=== PATIENT | female | born 1950 | race Caucasian/White ===

== ENCOUNTER 2017-02-12 16:24 | Inpatient (IN) ==
[2017-02-12] MEDS ORDERED: METHOCARBAMOL INJ 1,000 MG in SODIUM CHLORIDE 0.9% 100 ML IV STA (17:21)
[2017-02-12] MEDS ORDERED: KETOROLAC 30 MG/1 ML VIAL IV STA (17:21)
[2017-02-12] MEDS ORDERED: methylPREDNISolone SOD SUC 125 MG/2 ML VIAL IV STA (17:21)
--- NOTE | 2017-02-12 17:29 | Emergency Department Note ---
Arrival - Arrival Chief Complaint: Neuro Stated Complaint: sharp pain in head and arm/numb ED Nursing Triage Note: pain in head that radiates down into left arm and into hand. sent here from [facility] for further evaluation and neurology Mode of Arrival: Wheelchair Limitations: No Limitations Source: Patient Time Seen by Provider: 02/12/17 17:20 - History of Present Illness HPI Narrative: This 66-year-old white female presents approximately 12 hours after awakening with left-sided headache facial pain pain and tingling down the left arm as well as left scapula. She denies any significant pure chest pain, shortness of breath, diaphoresis, nausea, or vomiting. She likewise denies any slurred speech, visual changes, or focal deficits. She had a CT at [place] which was unremarkable as well as lab work there that was likewise unremarkable including cardiac enzymes. Currently she still complains of a mild headache, left facial pain and left upper extremity and left scapular pain. Of note the patient does have bilateral carpal tunnel syndrome and has significant loss of bander strength bilaterally left greater than right and has great difficulty holding onto anything. She has been advised the past to have surgery but she has refused to this point in time. She appears in no acute medical distress at this time. Onset (ago): hour(s) (Patient presents 12 hours post onset of symptoms) Allergies/Adverse Reactions: Allergies Allergy/AdvReac Type Severity Reaction Status Date / Time codeine AdvReac Nausea Verified 08/01/15 17:35 Home Medications: Home Medications Medication Instructions Recorded Confirmed Type Amlodipine Besylate 5 mg PO DAILY 08/01/15 04/05/16 History Aspirin [Ecotrin] 81 mg PO DAILY 08/01/15 04/05/16 History Diclofenac Sodium 75 mg PO BID 08/01/15 04/05/16 History Gabapentin [Gabapentin] 1 tablet PO BEDTIME 08/01/15 04/05/16 History Gemfibrozil [Lopid] 600 mg PO BIDAC 08/01/15 04/05/16 History Levetiracetam [Levetiracetam] 1,000 mg PO BID 08/01/15 04/05/16 History Potassium Chloride 20 meq PO DAILY 08/01/15 04/05/16 History clonazePAM [Clonazepam] 0.5 mg PO BID PRN 08/01/15 04/05/16 History metFORMIN [Glucophage] 500 mg PO BID W/MEALS 08/01/15 04/05/16 History Losartan/Hydrochlorothiazide 1 each PO DAILY 04/05/16 04/05/16 History [Losartan-Hctz 100-12.5 mg Tab] Review of System - Review of System 12 point system: reviewed and no additional remarkable complaints except as stated - Review of System Constitutional: Present: as per HPI Respiratory: Present: as per HPI Cardiovascular: Present: as per HPI Gastrointestinal: Present: as per HPI Neurological: Present: as per HPI Medical,Surgical,& Family Hx - Medical History Cardio: History of: Hypertension Psychological: History of: Anxiety Disorders Neurology: History of: Seizures Endocrine: History of: Diabetes Mellitus (NIDDM) Musculoskeletal: History of: Osteoporosis - Social History Smoking Status: Never smoker Exam Physical Examination: GENERAL: Well developed, well nourished elderly white female in no acute distress. HEENT: Normocephalic. No trauma. Moist mucous membranes. EOMI. PERRLA. ENT NML NECK: Supple. No adenopathy. CARDIAC: Regular. No murmurs. Heart rate 75 CHEST: Clear to auscultation. No respiratory distress. O2 sat 97 per ABDOMEN: Soft. Nontender. Active bowel sounds. EXTREMITIES: No trauma. Normal ROM. No pedal edema. SKIN: No diaphoresis. No rash. NEURO: Alert. Oriented 3. Motor, sensory, vibratory intact except for the upper extremities where there is bilateral bander weakness left greater than right secondary to bilateral carpal tunnel Vital Signs: Vital Signs Temperature 97.9 F 02/12/17 18:11 Pulse Rate 75 02/12/17 18:11 Respiratory Rate 18 02/12/17 18:11 Blood Pressure 127/79 02/12/17 18:11 O2 Sat by Pulse Oximetry 97 02/12/17 16:34 Course Course Narrative: Patient treated for cervical radiculopathy with full response and symptoms. - Consultations Consultation #1: Discussed with Dr. Anne who advised hospitalization for MRI in the morning given the spontaneity of the headache. Consultation #2: Discussed with hospitalist service who will admit for further evaluation treatment. Results - Diagnostic Findings Procedure: X-ray: image reviewed by me, report reviewed by me (Cervical spine reveals DJD but no abnormality of curvature or evidence of loss of joint spacing ) Disposition Clinical Impression: Headache, Bilateral carpal tunnel disease Case discussed with: patient, patient's family Disposition: Still a Patient Condition: Stable Time of Disposition: 18:26
[2017-02-12] MEDS ORDERED: KETOROLAC 30 MG/1 ML VIAL ONE (17:35)
[2017-02-12] MEDS ORDERED: METHOCARBAMOL 1,000 MG/10 ML VIAL ONE (17:35)
[2017-02-12] MEDS ORDERED: methylPREDNISolone SOD SUC 125 MG/2 ML VIAL ONE (17:35)
--- NOTE | 2017-02-12 17:55 | XRay Report ---
XR cervical spine AP/LAT Clinical Information: radiculopathy Comparison: Cervical spine CT dated 10/26/2015 and radiograph 01/04/2012 Findings: Vertebral body heights and alignment are within normal limits. Multilevel mild intervertebral disc space loss is noted. There is also multilevel facet arthropathy throughout the mid cervical levels. Moderate disc space loss is noted at C5-C6, which is progressed from the 2012 radiographs. Prevertebral soft tissues appear normal. There is no acute fracture or subluxation identified. No suspicious osseous or soft tissue lesions are identified. Impression: No acute fracture or subluxation in the Cervical spine. Multilevel moderate degenerative changes as detailed above. PROCEDURE INTERPRETED AT [facility] DEPARTMENT OF RADIOLOGY Final Report Signed by: Bola Smith
[2017-02-12] MEDS ORDERED: ONDANSETRON 4 MG/2 ML VIAL IV STA (18:20)
[2017-02-12] MEDS ORDERED: ONDANSETRON 4 MG/2 ML VIAL ONE (18:22)
--- NOTE | 2017-02-12 18:34 | EKG Report ---
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
[2017-02-12 18:52] LABS: Troponin I Only 0.018 NG/ML (0.00-0.045)
--- NOTE | 2017-02-12 19:07 | Hospitalist History & Physical ---
Assessment and Plan (1) Frontal headache Status: Acute Assessment and plan: The patient is moved the hospital with frontal headache associated with left arm radiculopathy symptoms. The patient states that she has had lacunar infarctions in the past. The patient will be admitted to the floor and we will obtain MRI scan in the morning. In the meantime will treat her symptoms with oral pain medication and treat blood pressure by restarting her home regimen. We will obtain neurology consultation in the morning as well as MRI scan and carotid Doppler study. Current Visit: Yes (2) Paresthesia of left arm Status: Acute Current Visit: Yes (3) Hypertension Status: Acute Current Visit: Yes (4) Diabetes type 2, controlled Status: Acute Current Visit: Yes Qualifiers: Diabetes mellitus complication status: with neurologic complications Diabetes mellitus complication detail: with other neurological complication Diabetes mellitus termite renewal inspector insulin use: without termite renewal inspector use Qualified Code( s): E11.49 - Type 2 diabetes mellitus with other diabetic neurological complication History of Present Illness Chief complaint: Frontal headache and left arm pain History of present illness: Ms. Keller is a 66 year old female patient of Dr. Abdulaziz Romero. The patient presents to the hospital with frontal headache which is bitemporal. Associated with the headache the patient has left neck tenderness and left arm numbness and tingling. The patient denies fever, chills, nausea, vomiting. The patient' s headache symptoms moderate, continuous, and worsening. The headache is worse when leaning over and improves with sleeping. The headache began about 2 weeks ago and has been intermittent until 2 days ago when it has been constant. The patient denies angina or palpitations. A complete 10 system review is obtained and all systems not mentioned in history of present illness were negative. The patient is her own medical decision maker and wishes to be full code. I discussed the case with Dr. Clemente in the emergency room and offered the patient admission for further evaluation. Home Medications Medication Instructions Recorded Confirmed Type Amlodipine Besylate 5 mg PO DAILY 08/01/15 04/05/16 History Aspirin [Ecotrin] 81 mg PO DAILY 08/01/15 04/05/16 History Diclofenac Sodium 75 mg PO BID 08/01/15 04/05/16 History Gabapentin [Gabapentin] 1 tablet PO BEDTIME 08/01/15 04/05/16 History Gemfibrozil [Lopid] 600 mg PO BIDAC 08/01/15 04/05/16 History Levetiracetam [Levetiracetam] 1,000 mg PO BID 08/01/15 04/05/16 History Potassium Chloride 20 meq PO DAILY 08/01/15 04/05/16 History clonazePAM [Clonazepam] 0.5 mg PO BID PRN 08/01/15 04/05/16 History metFORMIN [Glucophage] 500 mg PO BID W/MEALS 08/01/15 04/05/16 History Losartan/Hydrochlorothiazide 1 each PO DAILY 04/05/16 04/05/16 History [Losartan-Hctz 100-12.5 mg Tab] Allergies Allergy/AdvReac Type Severity Reaction Status Date / Time codeine AdvReac Nausea Verified 08/01/15 17:35 Medical,Surgical,& Family Hx - Medical History Cardio: History of: Hypertension Psychological: History of: Anxiety Disorders Neurology: History of: Seizures Endocrine: History of: Diabetes Mellitus (NIDDM) Musculoskeletal: History of: Osteoporosis - Family History Family History: Reports;: Family Hypertension - Social History Smoking Status: Never smoker Marital Status: Lives With:: Spouse Functional capacity: independent ambulation 12 point system: reviewed and no additional remarkable complaints except as stated Exam - Constitutional Vitals: Period Temp Pulse Resp BP Sys/Jiménez Pulse Ox Last 24 Hr 97.9 F-97.9 F 75-75 18-18 127-127/79-79 97 Exam: Constitutional System: Mild distress. No tremulousness. Head: Normocephalic, atraumatic. Ears, Nose and Throat System: No evidence of Otitis or Mastoiditis. No epistaxis or discharge Eyes System: Pupils equal, round, and reactive. Extraocular muscles intact. Neck: Supple, without adenopathy, No jugular venous distention. No thyromegaly , neck mass, or prior surgery apparent. Respiratory System: Chest clear to auscultation. Cardiovascular System: Heart with regular rate and rhythm. No murmur. GI System: Abdomen soft, nontender. Normo active bowel sounds present. Musculoskeletal System: limbs with no pedal edema. Full distal pulses. Neurological System: No discernable sensory deficit. No aphasia Psychiatric System: Conversation is rational Capillary Refill: less than 2 sec Results - Labs Lab Results: I have reviewed the past 24 hour labs Quality Measures - Stroke Onset of Symptoms Date: 02/09/17 Symptom Onset Unknown: No
[2017-02-12] MEDS ORDERED: ZALEPLON 5 MG CAPSULE PO PRN (19:33)
[2017-02-12] MEDS ORDERED: MORPHINE 2 MG/1 ML SYRINGE IV PRN (19:33)
[2017-02-12] MEDS ORDERED: clonazePAM 0.5 MG TABLET PO PRN (19:33)
[2017-02-12] MEDS ORDERED: DEXTROSE 50% 25 GM/50 ML VIAL IV PRN (19:33)
[2017-02-12] MEDS ORDERED: ACETAMINOPHEN 325 MG TABLET PO PRN (19:33)
[2017-02-12] MEDS ORDERED: GLUCAGON 1 MG VIAL IM PRN (19:33)
[2017-02-12] MEDS ORDERED: guaiFENesin/DM ER 600-30 MG TABLET PO PRN (19:33)
[2017-02-12] MEDS: SODIUM CHLORIDE 0.9% 1,000 ML IV SCH (22:08)
[2017-02-12] MEDS: ENOXAPARIN 40 MG/0.4 ML SYRINGE SUBCUT SCH (22:13)
[2017-02-12] MEDS: GABAPENTIN 100 MG CAPSULE PO SCH (22:14)
[2017-02-12] MEDS: levETIRAcetam 500 MG TABLET PO SCH (22:15)
[2017-02-12] MEDS: INSULIN LISPRO 100 UNIT/ML SUBCUT SCH (22:27)
[2017-02-13] MEDS: ONDANSETRON 4 MG/2 ML VIAL IV PRN ×4 (00:18→20:54)
[2017-02-13 05:27] LABS: Hematocrit 33.4 VOL% (35.7-47.0); Immature Granulocytes % 0.7 %; Immature Granulocytes Absolute 0.04 #; Lymphocytes # 0.8 10*3/uL (1.4-4.0); Lymphocytes % 14.5 % (21.3-54.2); Mean Corpuscular HGB Conc 32.9 GM/DL (32-36); Mean Corpuscular Hemoglobin 28 PG (27-34); Mean Corpuscular Volume 83.5 FL (87-102); Mean Platelet Volume 12.4 FL (9.6-12.0); Monocytes # 0.1 10*3/uL (0.11-0.8); Neutrophils # 4.6 10*3/uL (1.4-7.4); Neutrophils % 82.8 % (38.7-73.9); Platelet Count 145 T/CUMM (130-400); Red Cell Distribution Width 12.7 % (9.3-17.3); White Blood Count 5.6 T/CUMM (4-12)
[2017-02-13 06:05] LABS: Calcium 8.8 MG/DL (8.5-10.1); Magnesium 2.1 MG/DL (1.8-2.4); Osmolality,Calculated 291.7 MOS/KG (273-304); Potassium 4.1 MMOL/L (3.5-5.1); Troponin I Only 0.021 NG/ML (0.00-0.045)
--- NOTE | 2017-02-13 08:14 | Ultrasound Report ---
Exam: US carotid duplex BI Date: 02/13/2017 7:00 AM Indication: Headache Findings: Grayscale color flow analysis and spectral analysis imaging was performed with image stored and captured. Right Side Flow velocities centimeters per second Common carotid artery: 66 Proximal ICA: 57.2 Distal ICA: 66.3 External carotid artery: 82.0 Vertebral artery: 45.5 ICA/CCA ratio: 1 Measurements in millimeters Distal ICA: 5.4 Left SIde Flow velocities centimeters per second Common carotid artery: 69 Proximal ICA: 84.6 Distal ICA: 84.6 External carotid artery: 85.9 Vertebral artery: 59.8 ICA/CCA ratio: 1.2 Measurements in millimeters Distal ICA: 5.7 Atherosclerotic plaque present no spectral broadening clearly demonstrated. Normal color flow Impression: 1. 16-49% stenosis bilaterally. Findings similar to previous exam. Today studies were performed utilizing indirect NASCET criteria The ultrasound images were stored and captured PROCEDURE INTERPRETED AT [facility] DEPARTMENT OF RADIOLOGY Final Report Signed by: Dr. Vlad George
[2017-02-13] MEDS: INSULIN LISPRO 100 UNIT/ML SUBCUT SCH ×4 (08:16→23:49)
[2017-02-13] MEDS: ASPIRIN EC 81 MG TABLET PO SCH (08:22)
[2017-02-13] MEDS: LOSARTAN 50 MG TABLET PO SCH (08:22)
[2017-02-13] MEDS: PANTOPRAZOLE 40 MG TABLET PO SCH (08:23)
[2017-02-13] MEDS: hydroCHLOROthiazide 12.5 MG CAPSULE PO SCH (08:23)
[2017-02-13] MEDS: amLODIPine 5 MG TABLET PO SCH (08:26)
[2017-02-13] MEDS: levETIRAcetam 500 MG TABLET PO SCH ×2 (08:27→20:55)
[2017-02-13] MEDS: POTASSIUM CHLORIDE 20 MEQ TABLET PO SCH (08:29)
--- NOTE | 2017-02-13 11:33 | Neurology Consult Note ---
History of Present Illness History of present illness: Ms. Keller is a 66 year old right-handed white lady with past medical history significant for diabetes, hypertension presented to the hospital the patient with frontal headache which is bitemporal. Associated with the headache the patient has left neck tenderness and left arm numbness and tingling. The patient denies fever, chills, nausea, vomiting. The patient's headache symptoms moderate, continuous, and worsening. The headache is worse when leaning over and improves with sleeping. The headache began about 2 weeks ago and has been intermittent until 2 days ago when it has been constant. The patient denies angina or palpitations. CT of the head is unremarkable. Patient denies any focal weakness. She is able to get up and walk. No difficulty with swallowing or speech. No difficulty with vision either. Home Medications Medication Instructions Recorded Confirmed Type Amlodipine Besylate 5 mg PO QAM 08/01/15 02/12/17 History Gemfibrozil [Lopid] 600 mg PO BIDAC 08/01/15 02/13/17 History Levetiracetam [Levetiracetam] 1,000 mg PO BID 08/01/15 02/13/17 History Potassium Chloride 20 meq PO QAM 08/01/15 02/13/17 History metFORMIN [Glucophage] 500 mg PO BID W/MEALS 08/01/15 02/13/17 History Losartan/Hydrochlorothiazide 1 each PO QAM 04/05/16 02/13/17 History [Losartan-Hctz 100-12.5 mg Tab] Aspirin Chew Tab 81 mg PO QAM 02/12/17 02/12/17 History Gabapentin [Gabapentin] 300 mg PO BID 02/12/17 02/13/17 History clonazePAM [Clonazepam] 1 mg PO BID 02/12/17 02/13/17 History glipiZIDE [Glipizide] 5 mg PO BIDAC 02/12/17 02/13/17 History Allergies Allergy/AdvReac Type Severity Reaction Status Date / Time codeine AdvReac Nausea Verified 08/01/15 17:35 12 point system: reviewed and no additional remarkable complaints except as stated Medical,Surgical,& Family Hx - Medical History Cardio: History of: Hypertension Psychological: History of: Anxiety Disorders Neurology: History of: Seizures Endocrine: History of: Diabetes Mellitus (NIDDM) Musculoskeletal: History of: Osteoporosis - Family History Family History: Reports;: Family Cancer (father, mother), Family Diabetes ( mother, father), Family Heart Disease (father), Family Hypertension - Social History Smoking Status: Never smoker Frequency of Alcohol Use: None Type of Drug Use: None Exam - Constitutional Vitals: Period Temp Pulse Resp BP Sys/Jiménez Pulse Ox Last 24 Hr 96.0 F-97.9 F 58-75 16-20 111-142/64-82 91-98 Exam: GENERAL: Patient is in no acute distress. NECK: Neck is supple. There is no JVD. No carotid bruits present. No thyroid masses. CVS: First and second heart sounds are normal. There is no S3 present. Regular rate and rhythm. RESPIRATORY: Lungs are clear to auscultation without any rales or rhonchi. ABDOMEN: Soft and non-tender. Bowel sounds are present. There is no hepatosplenomegaly. EXT: There is no palpable edema. Peripheral pulses are present. Skin: No rashes Central Nervous system: General: Alert, awake and Oriented x 3 Speech: Fluent Comprehension: Intact and normal Facial expressions: Normal Cranial Nerves: CN1/Olfactory: Normal CN II/ Optic: Normal, Visual Mims unreliable CN III, and : JODIE & EOMI CN V: Normal & intact CN VII: face is symmetric CNVIII: Normal CN XI/X/XI/XII: Intact and Normal Motor: Bulk and Tone is normal. Strength in the right 5/5 Strength in the left 5/5 Sensory: Grossly intact for all the modalities of PP, LT and temp sense Reflexes: 1+ and symmetrical Cerebellar function: Normal finger to nose and heel to hodgson testing. Toes: Equivocal Gait: Normal heel to heel and toe to toe and tandem walk. Results - Labs CBC & BMP: 02/13/17 04:07 02/13/17 04:07 Assessment and Plan (1) Frontal headache Status: Acute Assessment and plan: Try Fioricet 1 tablet every 4 to every 6 as needed. This could very well be migraine type issue Current Visit: Yes (2) Paresthesia of left arm Status: Acute Assessment and plan: Rule out stroke. Agree with MRI of the brain. Start and continue aspirin a day Thank you for the consult Current Visit: Yes
--- NOTE | 2017-02-13 12:45 | Hospitalist Progress Note ---
Assessment and Plan (1) Frontal headache Status: Acute Assessment and plan: 1)headache- Dr Anne has ordered Fioricet. 2)left arm numbness- MRI brain pending. no injury to neck or history of pain or arthritis there. PT adn OT to see. Check carotids US, echo. On asa at home, continued here and her other meds also reconciled including Klonipin. Neurontin held for now. 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 Dr Anne has saw her later and MRI brain is pending. Exam - Constitutional Vitals: Period Temp Pulse Resp BP Sys/Jiménez Pulse Ox Last 24 Hr 96.0 F-97.9 F 58-75 16-20 111-142/64-82 91-98 General appearance: normal weight, no acute distress - Eye Eye exam: Present: EOMI. 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 She has equal strength in her legs but is weak and unstable to walk, her balance has been affected. ), reflexes normal - Skin Skin exam: Present: warm, dry Results - Labs CBC & BMP: 02/13/17 04:07 02/13/17 04:07 Lab Results: I have reviewed the past 24 hour labs Quality Measures - Stroke Onset of Symptoms Date: 02/09/17 Symptom Onset Unknown: No
[2017-02-13] MEDS: SODIUM CHLORIDE 0.9% 1,000 ML IV SCH (13:28)
--- NOTE | 2017-02-13 13:38 | Magnetic Resonance Report ---
Exam: MRI brain without and with contrast Exam date: February 13, 2017 at 1245 hours Indication: Frontal headaches with left arm numbness Comparison: August 27, 2011 Technique: Multiplanar, multisequence magnetic resonance imaging of the brain prior to and after 12 mL gadolinium-based intravenous contrast was performed in routine fashion. Axial, coronal and sagittal images submitted for interpretation Findings: Parenchyma: No mass or midline shift. No intra or extra-axial. Mild generalized atrophy with punctate microangiopathic small vessel ischemic changes.. No abnormal enhancement Ventricles and sulci: Normal in size and configuration Posterior fossa: Cerebellum, brainstem and cervicomedullary junction are preserved Orbits and sinuses: Globes and orbits are intact. Periorbital and pericavernous spaces are normal. No paranasal sinus inflammatory changes. Sella: Pituitary is normal. Osseous: No abnormality of the skull base or calvarium is identified Impression: 1. Mild atrophy with minimal microangiopathic small vessel ischemic changes, likely age-appropriate. No acute intracranial abnormality PROCEDURE INTERPRETED AT [facility] DEPARTMENT OF RADIOLOGY Final Report Signed by: Jose Antonio Alexis
--- NOTE | 2017-02-13 15:54 | ECHO Report ---
Purnima Keller Exam Date: 02/13/2017 13:45 Referring Physician: Technologist: kameron Rhodes ARDMS, RVT Age: 66 Ht (in): 68 Wt (lb): 166 Gender: F Exam Location: [facility] Echo Indications: Essential (primary) hypertension, Frontal headache, Paresthesias left arm, DM BP: 142 / 72 HR: 62 Rhythm: Sinus Technical Quality: Good IMPRESSIONS No mass or thrombus is seen with TTE Mild left ventricular hypertrophy, moderate increased upper septal thickness. Left ventricular ejection fraction is estimated at 65 %. Moderate apical LAE. Trace mitral valve regurgitation. Aortic valve sclerosis, there is no aortic regurgitation. Trace to mild tricuspid valve regurgitation. Tricuspid regurgitation velocities suggest a PAP of 37 mmHg. MEASUREMENTS (Male / Female) Normal Values 2D ECHO LV Diastolic Diameter PLAX 3.0 cm 4.2 - 5.9 / 3.9 - 5.3 cm LV Systolic Diameter PLAX 2.0 cm LV Fractional Shortening PLAX 32.3 % IVS Diastolic Thickness 1.3 cm 0.6 - 1.0 / 0.6 - 0.9 cm LVPW Diastolic Thickness 1.4 cm 0.6 - 1.0 / 0.6 - 0.9 cm RV Internal Dim ED PLAX 3.4 cm Aortic Root Diameter 3.4 cm LA Systolic Diameter LX 3.6 cm 3.0 - 4.0 / 2.7 - 3.8 cm DOPPLER TR Peak Velocity 262.0 cm/s TR Peak Gradient 27.5 mmHg FINDINGS Left Ventricle Normal left ventricular cavity size. Mild left ventricular hypertrophy, moderate increased upper septal thickness. Left ventricular ejection fraction is estimated at 65 %. Right Ventricle The right ventricle is normal in size and function. Right Atrium The right atrium is normal in size. Left Atrium Moderate apical LAE Mitral Valve Morphologically normal mitral valve. Trace mitral valve regurgitation. Aortic Valve Aortic valve sclerosis, there is no aortic regurgitation. Tricuspid Valve Morphologically normal tricuspid valve. Trace to mild tricuspid valve regurgitation. Tricuspid regurgitation velocities suggest a PAP of 37 mmHg. Pulmonic Valve Morphologically normal pulmonic valve without significant stenosis. There is no pulmonic regurgitation. Pericardium Normal pericardium without effusion. Aorta Normal ascending aorta dimension. Roman Shabazz MD (Electronically Signed) Final Date: 13 February 2017 15:54
[2017-02-13] MEDS: glipiZIDE 5 MG TABLET PO SCH (17:19)
[2017-02-13] MEDS ORDERED: MAGNESIUM HYDROXIDE SUSP 30 ML UDCUP PO ONE (18:05)
[2017-02-13] MEDS: DOCUSATE SODIUM 100 MG CAPSULE PO SCH (20:54)
[2017-02-13] MEDS: clonazePAM 0.5 MG TABLET PO SCH (20:55)
[2017-02-13] MEDS: ENOXAPARIN 40 MG/0.4 ML SYRINGE SUBCUT SCH (20:56)
[2017-02-13] MEDS: GABAPENTIN 100 MG CAPSULE PO SCH (20:56)
[2017-02-14] MEDS: SODIUM CHLORIDE 0.9% 1,000 ML IV SCH ×4 (01:24→21:01)
[2017-02-14] MEDS: ONDANSETRON 4 MG/2 ML VIAL IV PRN ×3 (03:31→20:44)
[2017-02-14] MEDS: INSULIN LISPRO 100 UNIT/ML SUBCUT SCH ×4 (07:57→22:24)
[2017-02-14] MEDS: LOSARTAN 50 MG TABLET PO SCH (09:32)
[2017-02-14] MEDS: clonazePAM 0.5 MG TABLET PO SCH ×2 (09:33→20:45)
[2017-02-14] MEDS: ASPIRIN EC 81 MG TABLET PO SCH (09:33)
[2017-02-14] MEDS: amLODIPine 5 MG TABLET PO SCH (09:33)
[2017-02-14] MEDS: PANTOPRAZOLE 40 MG TABLET PO SCH (09:34)
[2017-02-14] MEDS: levETIRAcetam 500 MG TABLET PO SCH ×2 (09:35→20:46)
[2017-02-14] MEDS: hydroCHLOROthiazide 12.5 MG CAPSULE PO SCH (09:35)
[2017-02-14] MEDS: glipiZIDE 5 MG TABLET PO SCH ×2 (09:35→17:39)
[2017-02-14] MEDS: DOCUSATE SODIUM 100 MG CAPSULE PO SCH ×2 (09:36→20:45)
[2017-02-14] MEDS: POTASSIUM CHLORIDE 20 MEQ TABLET PO SCH (09:37)
[2017-02-14] MEDS ORDERED: LACTULOSE 20 GM/30 ML UDCUP PO PRN (12:01)
[2017-02-14] MEDS ORDERED: BUTALBITAL/ACETAMIN/CAFFEINE 50-325-40 MG TABLET PO PRN (12:01)
--- NOTE | 2017-02-14 12:03 | Hospitalist Progress Note ---
Assessment and Plan - Time spent with patient Time spent with patient: Less than 30 minutes (1) Frontal headache Status: Acute Assessment and plan: 66-year-old white female with history of diabetes and hypertension admitted by the hospitalist service on 02/12/2017 with bitemporal frontal headache with left neck tenderness and left arm numbness and tingling. Brain MRI, carotid Dopplers , and echocardiogram are all normal. Dr. Anne has seen and examined patient and feels this is migraines and has recommended Fioricet which was started today. Patient is also complaining of constipation. She has used Colace and milk of magnesia with no benefits. Will add Chronulac every 4 hours as needed. She is nontender and nondistended. Patient's hemoglobin A1c was mildly elevated at 7.9. She is on metformin and glyburide at home. Will consult diabetes educators for diet recommendations. Patient also has weakness upon standing and requesting [facility] rehab. Physical therapy consult has been ordered but is pending at this time. Dr. Renner will see and examine patient and further recommendations to follow. Current Visit: Yes (2) Paresthesia of left arm Status: Acute Current Visit: Yes (3) Hypertension Status: Acute Current Visit: Yes (4) Diabetes type 2, controlled Status: Acute Current Visit: Yes Qualifiers: Diabetes mellitus complication status: with neurologic complications Diabetes mellitus complication detail: with other neurological complication Diabetes mellitus buttermaker insulin use: without buttermaker use Qualified Code( s): E11.49 - Type 2 diabetes mellitus with other diabetic neurological complication Hospitalist: Subjective Interval history: Patient feels a little better but she still continues to have headache and now complaining of constipation. She is requesting to go to [facility] rehab Exam - Constitutional Vitals: Period Temp Pulse Resp BP Sys/Jiménez Pulse Ox Last 24 Hr 97.1 F-98.5 F 57-69 18-20 114-126/56-67 93-99 Exam: 66-year-old white female, no acute distress, alert and oriented Chest clear CV regular rate and rhythm Abdomen obese, nontender Extremities no edema Results - Labs CBC & BMP: 02/13/17 04:07 02/13/17 04:07 Lab Results: I have reviewed the past 24 hour labs - Diagnostic Findings Procedure: MRI: report reviewed by me (MRI of the brain shows mild atrophy with minimal microangiopathic small vessel ischemic changes that are age- appropriate. No acute intracranial abnormality.), Ultrasound: report reviewed by me (Carotid Doppler showed 16-49% stenosis bilaterally which is the same as previous exam. Echocardiogram shows mild left ventricular hypertrophy with EF of 65%.) Quality Measures - Stroke Onset of Symptoms Date: 02/09/17 Symptom Onset Unknown: No
[2017-02-14] MEDS: BUTALBITAL/ACETAMIN/CAFFEINE 50-325-40 MG TABLET PO PRN ×3 (12:20→22:50)
--- NOTE | 2017-02-14 13:20 | Neurology Progress Note ---
Neurology - PN : Subjective Interval history: Patient seems to be doing better. Still having difficulty in walking however was able to get up and walk with me with supervision to min assist. I cannot exclude the possibility of some anxiety/psychological element. There is no clear explanation of why she cannot walk. MRI of the brain is negative. Exam (Progress Note) - Constitutional Vitals: Period Temp Pulse Resp BP Sys/Jiménez Pulse Ox Last 24 Hr 97.1 F-98.5 F 57-69 18-20 114-126/56-67 93-99 Exam: GENERAL: Patient is in no acute distress. NECK: Neck is supple. There is no JVD. No carotid bruits present. No thyroid masses. CVS: First and second heart sounds are normal. There is no S3 present. Regular rate and rhythm. RESPIRATORY: Lungs are clear to auscultation without any rales or rhonchi. ABDOMEN: Soft and non-tender. Bowel sounds are present. There is no hepatosplenomegaly. EXT: There is no palpable edema. Peripheral pulses are present. Skin: No rashes Central Nervous system: General: Alert, awake and Oriented x 3 Speech: Fluent Comprehension: Intact and normal Facial expressions: Normal Cranial Nerves: CN1/Olfactory: Normal CN II/ Optic: Normal, Visual Mims unreliable CN III, and : JODIE & EOMI CN V: Normal & intact CN VII: face is symmetric CNVIII: Normal CN XI/X/XI/XII: Intact and Normal Motor: Bulk and Tone is normal. Strength in the right 5/5 Strength in the left 5/5 Sensory: Grossly intact for all the modalities of PP, LT and temp sense Reflexes: 1+ and symmetrical Cerebellar function: Normal finger to nose and heel to hodgson testing. Toes: Equivocal Gait: Able to get up and walk with min assist Results - Labs CBC & BMP: 02/13/17 04:07 02/13/17 04:07 Assessment and Plan (1) Frontal headache Status: Acute Assessment and plan: This has resolved Current Visit: Yes (2) Paresthesia of left arm Status: Acute Assessment and plan: Continue aspirin a day Okay to go home from neuro standpoint with home health/outpatient therapy Thank you for the consult Current Visit: Yes Quality Measures - Stroke Onset of Symptoms Date: 02/09/17 Symptom Onset Unknown: No
[2017-02-14] MEDS ORDERED: SODIUM CHLORIDE 0.9% 500 ML IV ONE (13:23)
[2017-02-14] MEDS: ENOXAPARIN 40 MG/0.4 ML SYRINGE SUBCUT SCH (20:44)
[2017-02-14] MEDS: GABAPENTIN 100 MG CAPSULE PO SCH (20:45)
[2017-02-15] MEDS: BUTALBITAL/ACETAMIN/CAFFEINE 50-325-40 MG TABLET PO PRN ×2 (03:44→08:37)
[2017-02-15] MEDS: ONDANSETRON 4 MG/2 ML VIAL IV PRN ×2 (03:47→12:07)
[2017-02-15 04:39] LABS: Calcium 7.9 MG/DL (8.5-10.1); Magnesium 2.4 MG/DL (1.8-2.4); Osmolality,Calculated 282.7 MOS/KG (273-304); Potassium 4.2 MMOL/L (3.5-5.1)
[2017-02-15] MEDS: SODIUM CHLORIDE 0.9% 1,000 ML IV SCH ×2 (05:10→15:01)
[2017-02-15] MEDS: hydroCHLOROthiazide 12.5 MG CAPSULE PO SCH (08:35)
[2017-02-15] MEDS: levETIRAcetam 500 MG TABLET PO SCH (08:35)
[2017-02-15] MEDS: ASPIRIN EC 81 MG TABLET PO SCH (08:36)
[2017-02-15] MEDS: DOCUSATE SODIUM 100 MG CAPSULE PO SCH (08:36)
[2017-02-15] MEDS: glipiZIDE 5 MG TABLET PO SCH (08:36)
[2017-02-15] MEDS: amLODIPine 5 MG TABLET PO SCH (08:38)
[2017-02-15] MEDS: PANTOPRAZOLE 40 MG TABLET PO SCH (08:38)
[2017-02-15] MEDS: clonazePAM 0.5 MG TABLET PO SCH (08:38)
[2017-02-15] MEDS: POTASSIUM CHLORIDE 20 MEQ TABLET PO SCH (08:39)
[2017-02-15] MEDS: LOSARTAN 50 MG TABLET PO SCH (08:39)
[2017-02-15] MEDS: INSULIN LISPRO 100 UNIT/ML SUBCUT SCH ×2 (08:40→11:38)
[2017-02-15] MEDS ORDERED: SUMAtriptan 6 MG/0.5 ML VIAL SUBCUT ONE (10:23)
--- NOTE | 2017-02-15 10:23 | Discharge Summary ---
<Colleen Young - Last Filed: 02/15/17 10:35> Hospital Course - Hospital Course Hospital Course: 66-year-old white female with history of hypertension, diabetes, depression and anxiety admitted by the hospitalist service on 02/12/2017 per neurology's request with frontal headache and paresthesias of her left arm. Patient's echo, carotid Dopplers, and brain MRI were all normal. Dr. Anne from neurology did see the patient and he felt this was more migraines and ordered Fioricet. Patient did have a headache this morning and Fioricet was ordered and this did help. Patient is having some weakness with ambulation and she will not qualify for swing bed or rehab placement. She will be discharged home with home health physical therapy and a prescription for Fioricet. Complete discharge instructions were given. Care coordination, chart review, completed discharge paperwork took approximately 33 minutes. I evaluated this patient and completed an independent history and physical examination. I coordinated care with KAILEE White,[place]. I agree with the documentation that she provides above. Patient's home medications were reviewed and reconciled. She is a full code. - Time spent with patient Time with patient DS: Greater than 30 minutes Diagnosis - Discharge Diagnosis (1) Frontal headache Status: Resolved (2) Paresthesia of left arm Status: Resolved (3) Hypertension Status: Chronic (4) Diabetes type 2, controlled Status: Chronic Specialty Discharge - Follow Up or Referrals Follow up with: Abdulaziz Romero MD [Physician] - 2 Weeks (We will call you with appointment time. ) Discharge Plan - Discharge Data Disposition: Home Health Service - Discharge Medications New Butalbital/Acet/Caff 50-325-40 [Fioricet 50-325-40 mg Tablet] 1 tablet PO Q4H PRN #30 tablet PRN Reason: Migraine Headache Continue Gemfibrozil [Lopid] 600 mg PO BIDAC metFORMIN [Glucophage] 500 mg PO BID W/MEALS Levetiracetam 1,000 mg PO BID Potassium Chloride 20 meq PO QAM Amlodipine Besylate 5 mg PO QAM Losartan/Hydrochlorothiazide [Losartan-Hctz 100-12.5 mg Tab] 1 each PO QAM clonazePAM [Clonazepam] 1 mg PO BID Aspirin Chew Tab 81 mg PO QAM glipiZIDE [Glipizide] 5 mg PO BIDAC Gabapentin 300 mg PO BID - Follow Up or Referral Follow Up: Abdulaziz Romero MD [Physician] - 2 Weeks (We will call you with appointment time. ) - Forms/Instructions Instructions: Migraine Headache (DC) Exam - Constitutional Vitals: Period Temp Pulse Resp BP Sys/Jiménez Pulse Ox Last 24 Hr 97.4 F-98.7 F 54-73 18-20 122-155/62-69 96-98 Exam: 66-year-old white female, no acute distress, alert and oriented Chest clear CV regular rate and rhythm Abdomen soft nontender Extremities no edema Discharge Results Labs on day of discharge: Labs from last 24 hours 02/15/17 02/15/17 02/14/17 07:16 02:22 22:01 Sodium 138 Potassium 4.2 Chloride 104 Carbon Dioxide 27 Anion Gap 11.2 BUN 16 Creatinine 0.80 GFR Calculation 84 BUN/Creatinine Ratio 20.00 Glucose 232 H POC Glucose 158 H 162 H Calculated Osmolality 282.7 Calcium 7.9 L Magnesium 2.4 02/14/17 02/14/17 15:56 11:30 Sodium Potassium Chloride Carbon Dioxide Anion Gap BUN Creatinine GFR Calculation BUN/Creatinine Ratio Glucose POC Glucose 136 H 192 H Calculated Osmolality Calcium Magnesium DS: Provider Date of admission: 02/12/17 18:26 Primary care physician: . No PCP Attending physician on admission: Eliot Mcmullen MD Consults: 02/12/17 19:33 Consult to Physician [CONS] Routine Comment: headache, left arm numbness Consulting Provider: Sixto Anne Person Notified: Sandra Date Notified: 02/13/17 Time Notified: 08:45 02/12/17 21:08 Consult to Dietitian [CONS] Routine Reason for Dietitian: Dietary Consult 02/13/17 12:48 Consult to Occupational Therapy [CONS] Routine Reason for Occupational Therapy: Evaluate and Treat 02/13/17 12:49 Consult to Physical Therapy [CONS] Routine Reason for Physical Therapy: Evaluate and Treat 02/13/17 12:51 Consult to Case Mgmt/Social Srvs [CONS] Routine Reason for Case Mgmt/Social Srvs: Discharge Planning Consult Comment: wants to go to [facility] 02/14/17 12:02 Consult to [facility], Educator [CONS] Routine Reason for Educational Aid: Diabetes Education Discharging clinician: SHELLIE Mejia <Nir Renner - Last Filed: 02/15/17 13:37> Diagnosis - Discharge Diagnosis (1) Migraine Status: Acute (2) Frontal headache Status: Resolved (3) Paresthesia of left arm Status: Resolved (4) Hypertension Status: Chronic (5) Diabetes type 2, controlled Status: Chronic Discharge Plan - Discharge Data Condition at Discharge: Stable Discharge Diet: advance to your usual diet Activity: resume usual activities as tolerated, as per physical therapy Hygiene: no restrictions Weight Bearing at Discharge: full weight bearing Contact your physician if you experience:: fever over 101, Difficulty voiding, Shortness of breath DS: Provider Expected date of discharge: 02/15/17
[2017-02-15 15:02] VITALS: BP 144/75
== END 2017-02-15 15:20 | disposition home health service (06) | DRG 103 ==
LOC: N.ED 16:24 → SUATTDRO 18:26 → N.EDINP 18:26 → N.4E 19:51
PROVIDERS: ADMIT Family Medicine; ATTEND Family Medicine

== ENCOUNTER 2018-05-16 10:27 | Inpatient (IN) ==
[2018-05-16 12:37] LABS: Basophils % 0.1 % (0.0-0.8); Hematocrit 36.3 VOL% (35.7-47.0); Hemoglobin 11.5 GM/DL (12.0-16.0); Immature Granulocytes % 0.7 %; Lymphocytes # 1.2 10*3/uL (1.4-4.0); Lymphocytes % 8.4 % (21.3-54.2); Mean Corpuscular HGB Conc 31.7 GM/DL (32-36); Mean Corpuscular Hemoglobin 26 PG (27-34); Mean Corpuscular Volume 83.4 FL (87-102); Mean Platelet Volume 11.2 FL (9.6-12.0); Monocytes # 0.7 10*3/uL (0.11-0.8); Monocytes % 4.9 % (1.7-12.7); Neutrophils # 11.9 10*3/uL (1.4-7.4); Neutrophils % 85.9 % (38.7-73.9); Platelet Count 167 T/CUMM (130-400); Red Blood Count 4.35 MC/CUMM (3.8-5.5); Red Cell Distribution Width 13.4 % (9.3-17.3); White Blood Count 13.9 T/CUMM (4-12)
[2018-05-16 12:59] LABS: Albumin 3.2 G/DL (3.4-5.0); Bilirubin,Total 1.2 MG/DL (0.2-1.0); Osmolality,Calculated 273.1 MOS/KG (273-304); Potassium 3.6 MMOL/L (3.5-5.1); Total Protein 8.6 G/DL (6.4-8.3)
[2018-05-16 13:12] LABS: Apearance,Urine CLOUDY (Clear); Bacteria,Urine Occasional /HPF (Few); Bilirubin,Urine Negative (Negative); Blood, Urine Negative (Negative); Glucose,Urine (UA) Negative (Negative); Ketones,Urine Negative (Negative); Mucus,Urine Occasional /LPF (Occasional); Nitrite,Urine Negative (Negative); Protein,Urine 100 MG/DL; RBC,Urine 6 /HPF (0-4); Squamous Epithelial Cell,Urine Few /HPF (0-10); Urine Color Amber (Yellow); Urine Specific Gravity 1.024 (1.001-1.035); WBC,Urine 29 /HPF (0-6)
[2018-05-16] MEDS ORDERED: SODIUM CHLORIDE 0.9% 1,000 ML IV STA (13:37)
[2018-05-16] MEDS ORDERED: PIPERACILLIN/TAZOBACTAM 3,375 MG in SODIUM CHLORIDE 0.9% 100 ML IV STA (13:37)
[2018-05-16] MEDS ORDERED: MORPHINE 4 MG/1 ML VIAL IV STA (13:46)
[2018-05-16] MEDS ORDERED: ONDANSETRON 4 MG/2 ML VIAL IV STA (13:46)
[2018-05-16] MEDS ORDERED: MORPHINE 4 MG/1 ML VIAL ONE (13:51)
[2018-05-16] MEDS ORDERED: ONDANSETRON 4 MG/2 ML VIAL ONE (13:51)
[2018-05-16] MEDS ORDERED: PROMETHAZINE 25 MG/1 ML VIAL IM PRN (14:58)
[2018-05-16] MEDS ORDERED: ACETAMINOPHEN 325 MG TABLET PO PRN (14:58)
[2018-05-16] MEDS: PANTOPRAZOLE 40 MG VIAL IV SCH (15:54)
[2018-05-16] MEDS: HYDROmorphone 2 MG/1 ML VIAL IV PRN ×2 (16:00→21:38)
[2018-05-16] MEDS ORDERED: ENOXAPARIN 40 MG/0.4 ML SYRINGE SUBCUT SCH (21:00)
[2018-05-16] MEDS: ONDANSETRON 4 MG/2 ML VIAL IV PRN (23:02)
[2018-05-17 05:09] LABS: Basophils % 0.1 % (0.0-0.8); Hematocrit 31.3 VOL% (35.7-47.0); Immature Granulocytes % 0.5 %; Immature Granulocytes Absolute 0.05 #; Lymphocytes # 0.4 10*3/uL (1.4-4.0); Lymphocytes % 3.6 % (21.3-54.2); Mean Corpuscular HGB Conc 31.9 GM/DL (32-36); Mean Corpuscular Hemoglobin 27 PG (27-34); Mean Corpuscular Volume 82.8 FL (87-102); Mean Platelet Volume 11.8 FL (9.6-12.0); Monocytes % 10.6 % (1.7-12.7); Neutrophils # 8.3 10*3/uL (1.4-7.4); Neutrophils % 85.2 % (38.7-73.9); Platelet Count 119 T/CUMM (130-400); Red Blood Count 3.78 MC/CUMM (3.8-5.5); Red Cell Distribution Width 13.9 % (9.3-17.3); White Blood Count 9.8 T/CUMM (4-12)
[2018-05-17] MEDS: HYDROmorphone 2 MG/1 ML VIAL IV PRN ×2 (05:35→20:23)
[2018-05-17 05:37] LABS: Albumin 2.9 G/DL (3.4-5.0); Bilirubin,Total 2.1 MG/DL (0.2-1.0); Potassium 3.3 MMOL/L (3.5-5.1); Total Protein 7.1 G/DL (6.4-8.3)
[2018-05-17 05:44] LABS: Band Neutrophils 1 % (0-10); Hypochromasia 1+; Lymphocytes 5 % (20-55); Ovalocytes Slight; Platelet Estimate Decreased; Segmented Neutrophils 88 % (50-85); Total Cells Counted 100
[2018-05-17] MEDS ORDERED: cefOXitin 2,000 MG in SYRINGE 1 EACH IV ONE (06:30)
[2018-05-17] MEDS ORDERED: TISSUE ADHESIVE 1 EACH APPLICATOR TOP ONE (06:32)
[2018-05-17] MEDS ORDERED: LIDOCAINE 1%/EPI INJ 20 ML VIAL ONE (06:32)
[2018-05-17] MEDS ORDERED: NITROGLYCERIN 2% OINT 1 INCH/GM PACK TOP ONE (07:55)
[2018-05-17] MEDS ORDERED: METOPROLOL TARTRATE 5 MG/5 ML VIAL IV PRN ×2 (08:07→08:59)
[2018-05-17] MEDS ORDERED: SUGAMMADEX 200 MG/2 ML VIAL IV ONE (08:12)
[2018-05-17] MEDS ORDERED: PROPOFOL 200 MG/20 ML VIAL IV ONE (08:16)
[2018-05-17] MEDS ORDERED: SEVOFLURANE 1 UNIT/15 MINUTE INH ONE (08:16)
[2018-05-17] MEDS ORDERED: fentaNYL 100 MCG/2 ML VIAL ONE (08:17)
[2018-05-17] MEDS ORDERED: MIDAZOLAM 2 MG/2 ML VIAL ONE (08:17)
[2018-05-17] MEDS ORDERED: NITROGLYCERIN DRIP 50 MG/250 ML BOTTLE IV ONE (08:17)
[2018-05-17] MEDS ORDERED: KETOROLAC 30 MG/1 ML VIAL ONE (08:17)
[2018-05-17] MEDS ORDERED: ONDANSETRON 4 MG/2 ML VIAL ONE (08:17)
[2018-05-17] MEDS ORDERED: ROCURONIUM 100 MG/10 ML VIAL IV ONE (08:18)
[2018-05-17] MEDS ORDERED: PHENYLEPHRINE 1 MG/10 ML SYRINGE IV ONE (08:18)
[2018-05-17] MEDS ORDERED: ACETAMINOPHEN 1,000 MG/100 ML VIAL IV ONE (08:18)
[2018-05-17] MEDS ORDERED: LOSARTAN 50 MG TABLET PO SCH (09:00)
[2018-05-17] MEDS ORDERED: GLUCAGON 1 MG VIAL IM PRN (10:24)
[2018-05-17] MEDS ORDERED: DEXTROSE 50% 25 GM/50 ML SYRINGE IV PRN (10:24)
[2018-05-17] MEDS ORDERED: LOSARTAN/HCTZ 50-12.5 MG TABLET PO SCH (10:24)
[2018-05-17] MEDS: levETIRAcetam 500 MG TABLET PO SCH ×2 (10:59→22:14)
[2018-05-17] MEDS: PANTOPRAZOLE 40 MG VIAL IV SCH (10:59)
[2018-05-17] MEDS: GABAPENTIN 300 MG CAPSULE PO SCH ×2 (11:00→22:16)
[2018-05-17] MEDS: amLODIPine 5 MG TABLET PO SCH (11:00)
[2018-05-17] MEDS: BACLOFEN 10 MG TABLET PO SCH ×4 (11:00→22:17)
[2018-05-17] MEDS: POTASSIUM CHLORIDE 20 MEQ TABLET PO SCH (11:00)
[2018-05-17] MEDS: DICLOFENAC POTASSIUM 50 MG TABLET PO SCH ×2 (11:02→15:26)
[2018-05-17] MEDS: INSULIN REGULAR 100 UNIT/ML SUBCUT SCH ×3 (12:28→22:17)
[2018-05-17] MEDS ORDERED: LACTATED RINGERS 1,000 ML IV ONE ×3 (17:49→22:01)
[2018-05-17] MEDS: PIPERACILLIN/TAZOBACTAM 3,375 MG in SODIUM CHLORIDE 0.9% 100 ML IV SCH (19:15)
[2018-05-17 19:22] LABS: Basophils % 0.1 % (0.0-0.8); Eosinophils % 0.1 % (0.00-10.9); Hematocrit 26.3 VOL% (35.7-47.0); Hemoglobin 8.4 GM/DL (12.0-16.0); Immature Granulocytes % 0.8 %; Immature Granulocytes Absolute 0.09 #; Lymphocytes # 0.4 10*3/uL (1.4-4.0); Lymphocytes % 3.6 % (21.3-54.2); Mean Corpuscular HGB Conc 31.9 GM/DL (32-36); Mean Corpuscular Hemoglobin 27 PG (27-34); Mean Corpuscular Volume 83.5 FL (87-102); Mean Platelet Volume 11.7 FL (9.6-12.0); Monocytes # 0.9 10*3/uL (0.11-0.8); Monocytes % 8.4 % (1.7-12.7); Neutrophils # 9.7 10*3/uL (1.4-7.4); Platelet Count 125 T/CUMM (130-400); Red Blood Count 3.15 MC/CUMM (3.8-5.5); Red Cell Distribution Width 13.9 % (9.3-17.3); White Blood Count 11.1 T/CUMM (4-12)
[2018-05-17 20:01] LABS: Albumin 2.3 G/DL (3.4-5.0); Calcium 7.9 MG/DL (8.5-10.1); Potassium 3.7 MMOL/L (3.5-5.1); Total Protein 6.4 G/DL (6.4-8.3)
[2018-05-17 20:35] LABS: Hematocrit 26.9 VOL% (35.7-47.0); Hemoglobin 8.5 GM/DL (12.0-16.0)
[2018-05-17] MEDS: LACTATED RINGERS 1,000 ML IV SCH (21:33)
[2018-05-17] MEDS ORDERED: ALBUMIN 5% 12.5 GM in PREMIX 1 EACH IV ONE ×2 (21:48→22:05)
[2018-05-17 21:54] LABS: Apearance,Urine Slightly Hazy (Clear); Bacteria,Urine Occasional /HPF (Few); Blood, Urine Negative (Negative); Glucose,Urine (UA) Negative (Negative); Hyaline Casts,Urine 14 /LPF (0-3); Ketones,Urine 5 mg/dL (Negative); Mucus,Urine Occasional /LPF (Occasional); Nitrite,Urine Negative (Negative); Protein,Urine 30 MG/DL; RBC,Urine 1 /HPF (0-4); Squamous Epithelial Cell,Urine Occasional /HPF (0-10); Urine Color Amber (Yellow); WBC,Urine 5 /HPF (0-6)
[2018-05-17 22:01] LABS: Bilirubin,Urine Small mg/dL (Negative)
[2018-05-17] MEDS: clonazePAM 0.5 MG TABLET PO SCH (22:16)
[2018-05-17] MEDS: ASPIRIN CHEW 81 MG TABLET PO SCH (22:17)
[2018-05-17 22:54] LABS: Band Neutrophils 11 % (0-10); Lymphocytes 4 % (20-55); Nucleated Red Blood Cells 1 (0-5); Segmented Neutrophils 80 % (50-85); Total Cells Counted 100
[2018-05-17 22:57] LABS: Anisocytosis Slight
[2018-05-17 22:58] LABS: Microcytosis Slight
[2018-05-17 22:59] LABS: Platelet Estimate Adequate
[2018-05-18 00:45] LABS: Hematocrit 24.2 VOL% (35.7-47.0); Hemoglobin 7.5 GM/DL (12.0-16.0)
[2018-05-18] MEDS ORDERED: SODIUM CHLORIDE 0.9% 1,000 ML IV PRN (01:01)
[2018-05-18] MEDS ORDERED: LACTATED RINGERS 1,000 ML IV ONE ×2 (01:30→05:53)
[2018-05-18] MEDS: HYDROmorphone 2 MG/1 ML VIAL IV PRN ×2 (02:30→09:58)
[2018-05-18] MEDS: ONDANSETRON 4 MG/2 ML VIAL IV PRN (02:37)
[2018-05-18] MEDS: PIPERACILLIN/TAZOBACTAM 3,375 MG in SODIUM CHLORIDE 0.9% 100 ML IV SCH ×3 (02:50→19:11)
[2018-05-18] MEDS: LACTATED RINGERS 1,000 ML IV SCH ×4 (05:30→23:25)
[2018-05-18 07:38] LABS: ABG Base Excess 0.5 MMOL/L (-2.5-2.5); ABG HCO3 24.3 MMOL/L (20-26); ABG Oxygen Saturation 63.1 % (95-100); ABG PCO2 53.9 MM HG (35-48); ABG PH 7.314 (7.35-7.45); ABG TCO2 25.5 MMOL/L (23-27)
[2018-05-18 07:39] LABS: ABG PO2 34.7 MM HG (80-95)
[2018-05-18 07:45] LABS: Basophils % 0.3 % (0.0-0.8); Eosinophils # 0.1 10*3/uL (0.0-0.87); Eosinophils % 1.3 % (0.00-10.9); Immature Granulocytes % 0.8 %; Immature Granulocytes Absolute 0.06 #; Lymphocytes # 0.7 10*3/uL (1.4-4.0); Lymphocytes % 8.7 % (21.3-54.2); Mean Corpuscular HGB Conc 31.4 GM/DL (32-36); Mean Corpuscular Hemoglobin 27 PG (27-34); Mean Corpuscular Volume 85.8 FL (87-102); Mean Platelet Volume 11.5 FL (9.6-12.0); Monocytes # 0.6 10*3/uL (0.11-0.8); Neutrophils # 6.2 10*3/uL (1.4-7.4); Neutrophils % 80.9 % (38.7-73.9); Platelet Count 104 T/CUMM (130-400); Red Blood Count 3.38 MC/CUMM (3.8-5.5); Red Cell Distribution Width 14.2 % (9.3-17.3)
[2018-05-18 07:52] LABS: ABG Base Excess -0.5 MMOL/L (-2.5-2.5); ABG Oxygen Saturation 96.8 % (95-100); ABG PCO2 47.4 MM HG (35-48); ABG PH 7.341 (7.35-7.45); ABG PO2 86.3 MM HG (80-95); ABG TCO2 23.6 MMOL/L (23-27)
[2018-05-18 07:55] LABS: Hemoglobin 9.1 GM/DL (12.0-16.0); White Blood Count 7.7 T/CUMM (4-12)
[2018-05-18 08:07] LABS: Anisocytosis 1+; Band Neutrophils 28 % (0-10); Eosinophils 2 % (0-10); Hypochromasia Slight; Lymphocytes 6 % (20-55); Platelet Estimate Adequate; Segmented Neutrophils 57 % (50-85); Total Cells Counted 100
[2018-05-18 08:11] LABS: Lactic Acid 0.7 MMOL/L (0.4-2.0)
[2018-05-18 08:20] LABS: Albumin 2.2 G/DL (3.4-5.0); Bilirubin,Direct 0.89 MG/DL (0.0-0.20); Bilirubin,Indirect 0.6 MG/DL (0.0-1.0); Bilirubin,Total 1.5 MG/DL (0.2-1.0); Total Protein 5.7 G/DL (6.4-8.3)
[2018-05-18 08:29] LABS: Calcium 7.7 MG/DL (8.5-10.1); Osmolality,Calculated 282.7 MOS/KG (273-304); Potassium 3.5 MMOL/L (3.5-5.1)
[2018-05-18 08:49] LABS: Troponin I < 0.015 NG/ML (0.00-0.045)
[2018-05-18] MEDS: POTASSIUM CHLORIDE 20 MEQ TABLET PO SCH (09:53)
[2018-05-18] MEDS: amLODIPine 5 MG TABLET PO SCH (09:53)
[2018-05-18] MEDS: BACLOFEN 10 MG TABLET PO SCH ×3 (09:53→21:03)
[2018-05-18] MEDS: GABAPENTIN 300 MG CAPSULE PO SCH ×2 (09:53→21:02)
[2018-05-18] MEDS: levETIRAcetam 500 MG TABLET PO SCH ×2 (09:53→21:02)
[2018-05-18] MEDS: INSULIN REGULAR 100 UNIT/ML SUBCUT SCH ×4 (09:53→21:03)
[2018-05-18] MEDS: PANTOPRAZOLE 40 MG VIAL IV SCH (09:54)
[2018-05-18 12:23] LABS: Hematocrit 30.1 VOL% (35.7-47.0); Hemoglobin 9.5 GM/DL (12.0-16.0)
[2018-05-18] MEDS: clonazePAM 0.5 MG TABLET PO SCH (21:02)
[2018-05-18] MEDS: ASPIRIN CHEW 81 MG TABLET PO SCH (21:03)
[2018-05-19] MEDS: PIPERACILLIN/TAZOBACTAM 3,375 MG in SODIUM CHLORIDE 0.9% 100 ML IV SCH ×2 (02:18→09:29)
[2018-05-19 03:51] LABS: Basophils % 0.1 % (0.0-0.8); Eosinophils % 0.3 % (0.00-10.9); Hematocrit 30.3 VOL% (35.7-47.0); Hemoglobin 9.7 GM/DL (12.0-16.0); Immature Granulocytes Absolute 0.09 #; Lymphocytes # 0.7 10*3/uL (1.4-4.0); Lymphocytes % 7.9 % (21.3-54.2); Mean Corpuscular Hemoglobin 27 PG (27-34); Mean Corpuscular Volume 83.9 FL (87-102); Mean Platelet Volume 10.7 FL (9.6-12.0); Monocytes # 0.7 10*3/uL (0.11-0.8); Neutrophils # 7.4 10*3/uL (1.4-7.4); Neutrophils % 82.7 % (38.7-73.9); Platelet Count 134 T/CUMM (130-400); Red Blood Count 3.61 MC/CUMM (3.8-5.5); Red Cell Distribution Width 13.9 % (9.3-17.3)
[2018-05-19 04:07] LABS: Bilirubin,Direct 0.38 MG/DL (0.0-0.20); Bilirubin,Indirect 0.3 MG/DL (0.0-1.0); Bilirubin,Total 0.7 MG/DL (0.2-1.0); Calcium 7.9 MG/DL (8.5-10.1); Osmolality,Calculated 282.3 MOS/KG (273-304); Potassium 3.2 MMOL/L (3.5-5.1); Total Protein 5.6 G/DL (6.4-8.3)
[2018-05-19] MEDS: INSULIN REGULAR 100 UNIT/ML SUBCUT SCH ×4 (08:46→21:04)
[2018-05-19] MEDS: LACTATED RINGERS 1,000 ML IV SCH (08:47)
[2018-05-19] MEDS: PANTOPRAZOLE 40 MG VIAL IV SCH (09:24)
[2018-05-19] MEDS: levETIRAcetam 500 MG TABLET PO SCH ×2 (10:33→20:35)
[2018-05-19] MEDS: POTASSIUM CHLORIDE 20 MEQ TABLET PO SCH (10:33)
[2018-05-19] MEDS: amLODIPine 5 MG TABLET PO SCH (10:33)
[2018-05-19] MEDS: GABAPENTIN 300 MG CAPSULE PO SCH ×2 (10:34→20:35)
[2018-05-19] MEDS: BACLOFEN 10 MG TABLET PO SCH ×3 (10:34→21:04)
[2018-05-19] MEDS ORDERED: POTASSIUM CHLORIDE 20 MEQ TABLET PO ONE (12:35)
[2018-05-19] MEDS ORDERED: FUROSEMIDE 20 MG/2 ML VIAL IV ONE (16:45)
[2018-05-19] MEDS: ENOXAPARIN 40 MG/0.4 ML SYRINGE SUBCUT SCH (17:03)
[2018-05-19] MEDS: POTASSIUM CHLORIDE RIDER 20 MEQ in PREMIX 1 EACH IV PRN (17:39)
[2018-05-19] MEDS: POTASSIUM CHLORIDE RIDER 10 MEQ in PREMIX 1 EACH IV PRN (20:17)
[2018-05-19] MEDS: CIPROFLOXACIN 500 MG TABLET PO SCH (20:35)
[2018-05-19] MEDS: ASPIRIN CHEW 81 MG TABLET PO SCH (20:35)
[2018-05-19] MEDS: clonazePAM 0.5 MG TABLET PO SCH (20:35)
[2018-05-19] MEDS: HYDROmorphone 2 MG/1 ML VIAL IV PRN (20:55)
[2018-05-20] MEDS: HYDROmorphone 2 MG/1 ML VIAL IV PRN ×3 (04:27→19:52)
[2018-05-20 04:30] LABS: Basophils % 0.1 % (0.0-0.8); Eosinophils # 0.1 10*3/uL (0.0-0.87); Hematocrit 27.9 VOL% (35.7-47.0); Hemoglobin 8.9 GM/DL (12.0-16.0); Immature Granulocytes % 1.5 %; Immature Granulocytes Absolute 0.11 #; Lymphocytes # 1.1 10*3/uL (1.4-4.0); Lymphocytes % 15.1 % (21.3-54.2); Mean Corpuscular HGB Conc 31.9 GM/DL (32-36); Mean Corpuscular Hemoglobin 27 PG (27-34); Mean Corpuscular Volume 83.5 FL (87-102); Mean Platelet Volume 10.4 FL (9.6-12.0); Monocytes # 0.7 10*3/uL (0.11-0.8); Monocytes % 10.2 % (1.7-12.7); Neutrophils # 5.2 10*3/uL (1.4-7.4); Neutrophils % 72.1 % (38.7-73.9); Platelet Count 151 T/CUMM (130-400); Red Blood Count 3.34 MC/CUMM (3.8-5.5); Red Cell Distribution Width 13.7 % (9.3-17.3); White Blood Count 7.2 T/CUMM (4-12)
[2018-05-20 04:48] LABS: Calcium 8.1 MG/DL (8.5-10.1); Osmolality,Calculated 283.1 MOS/KG (273-304); Potassium 3.3 MMOL/L (3.5-5.1)
[2018-05-20] MEDS: POTASSIUM CHLORIDE RIDER 20 MEQ in PREMIX 1 EACH IV PRN (05:00)
[2018-05-20] MEDS: POTASSIUM CHLORIDE RIDER 10 MEQ in PREMIX 1 EACH IV PRN ×2 (07:28→08:26)
[2018-05-20] MEDS: INSULIN REGULAR 100 UNIT/ML SUBCUT SCH ×4 (08:46→22:02)
[2018-05-20] MEDS: GABAPENTIN 300 MG CAPSULE PO SCH ×2 (08:47→22:00)
[2018-05-20] MEDS: levETIRAcetam 500 MG TABLET PO SCH ×2 (08:47→22:01)
[2018-05-20] MEDS: CIPROFLOXACIN 500 MG TABLET PO SCH ×2 (08:48→22:01)
[2018-05-20] MEDS: amLODIPine 5 MG TABLET PO SCH (08:48)
[2018-05-20] MEDS: BACLOFEN 10 MG TABLET PO SCH ×3 (08:52→21:59)
[2018-05-20] MEDS: PANTOPRAZOLE 40 MG VIAL IV SCH (08:53)
[2018-05-20] MEDS: POTASSIUM CHLORIDE 20 MEQ TABLET PO SCH ×2 (15:33→22:00)
[2018-05-20] MEDS: ENOXAPARIN 40 MG/0.4 ML SYRINGE SUBCUT SCH (17:08)
[2018-05-20] MEDS: ASPIRIN CHEW 81 MG TABLET PO SCH (22:01)
[2018-05-20] MEDS: clonazePAM 0.5 MG TABLET PO SCH (22:01)
[2018-05-21 06:22] LABS: Calcium 8.4 MG/DL (8.5-10.1); Osmolality,Calculated 282.3 MOS/KG (273-304); Potassium 3.9 MMOL/L (3.5-5.1)
[2018-05-21 06:41] LABS: Basophils % 0.6 % (0.0-0.8); Eosinophils # 0.2 10*3/uL (0.0-0.87); Eosinophils % 3.5 % (0.00-10.9); Hematocrit 30.1 VOL% (35.7-47.0); Hemoglobin 9.5 GM/DL (12.0-16.0); Immature Granulocytes % 4.3 %; Immature Granulocytes Absolute 0.22 #; Lymphocytes # 1.1 10*3/uL (1.4-4.0); Lymphocytes % 20.3 % (21.3-54.2); Mean Corpuscular HGB Conc 31.6 GM/DL (32-36); Mean Corpuscular Hemoglobin 27 PG (27-34); Mean Corpuscular Volume 84.3 FL (87-102); Mean Platelet Volume 10.7 FL (9.6-12.0); Monocytes # 0.6 10*3/uL (0.11-0.8); Monocytes % 11.2 % (1.7-12.7); Neutrophils # 3.1 10*3/uL (1.4-7.4); Neutrophils % 60.1 % (38.7-73.9); Platelet Count 173 T/CUMM (130-400); Red Blood Count 3.57 MC/CUMM (3.8-5.5); Red Cell Distribution Width 13.6 % (9.3-17.3); White Blood Count 5.2 T/CUMM (4-12)
[2018-05-21] MEDS: INSULIN REGULAR 100 UNIT/ML SUBCUT SCH ×2 (07:23→12:20)
[2018-05-21 07:28] LABS: Eosinophils 3 % (0-10); Hypochromasia 1+; Lymphocytes 19 % (20-55); Platelet Estimate Adequate; Segmented Neutrophils 72 % (50-85); Total Cells Counted 100
[2018-05-21] MEDS: GABAPENTIN 300 MG CAPSULE PO SCH (07:59)
[2018-05-21] MEDS: BACLOFEN 10 MG TABLET PO SCH ×2 (07:59→14:28)
[2018-05-21] MEDS: CIPROFLOXACIN 500 MG TABLET PO SCH (07:59)
[2018-05-21] MEDS: POTASSIUM CHLORIDE 20 MEQ TABLET PO SCH (08:00)
[2018-05-21] MEDS: levETIRAcetam 500 MG TABLET PO SCH (08:00)
[2018-05-21] MEDS: amLODIPine 5 MG TABLET PO SCH (08:00)
[2018-05-21] MEDS ORDERED: PANTOPRAZOLE 40 MG TABLET PO SCH (09:00)
[2018-05-21 13:30] VITALS: BP 130/65
[2018-05-21] MEDS ORDERED: glipiZIDE 5 MG TABLET PO SCH (16:30)
[2018-05-21] MEDS ORDERED: GEMFIBROZIL 600 MG TABLET PO SCH (16:30)
[2018-05-21] MEDS ORDERED: metFORMIN 500 MG TABLET PO SCH (17:00)
== END 2018-05-21 15:58 | disposition swing bed (61) | DRG 418 ==
LOC: N.EDINP 10:27 → N.ED 10:27 → N.3E 14:15 → N.ICU 05-17 19:47
PROVIDERS: ADMIT Surgery; ATTEND Surgery
PROC: LAPCHOL (2018-05-17 13:20)

== ENCOUNTER 2019-10-26 15:47 | Inpatient (IN) ==
[2019-10-26] MEDS ORDERED: ONDANSETRON 4 MG/2 ML VIAL IV STA (16:12)
[2019-10-26 17:13] LABS: Basophils % 0.4 % (0.0-0.8); Eosinophils # 0.1 10*3/uL (0.0-0.87); Eosinophils % 1.5 % (0.00-10.9); Hematocrit 38.5 VOL% (35.7-47.0); Hemoglobin 12.2 GM/DL (12.0-16.0); Immature Granulocytes % 0.4 %; Immature Granulocytes Absolute 0.02 #; Lymphocytes # 1.4 10*3/uL (1.4-4.0); Lymphocytes % 29.7 % (21.3-54.2); Mean Corpuscular HGB Conc 31.7 GM/DL (32-36); Mean Corpuscular Volume 82.6 FL (87-102); Mean Platelet Volume 11.2 FL (9.6-12.0); Monocytes % 10.2 % (1.7-12.7); Neutrophils % 57.8 % (38.7-73.9); Platelet Count 137 T/CUMM (130-400); Red Blood Count 4.66 MC/CUMM (3.8-5.5); Red Cell Distribution Width 14.9 % (9.3-17.3); White Blood Count 4.8 T/CUMM (4-12)
[2019-10-26 17:33] LABS: PT Patient Result 10.5 SECS (9.8-11.9); Partial Thromboplastin Time 26.9 SECS (23.9-33.8)
[2019-10-26 17:36] LABS: Alanine Aminotransferase 20 U/L (13-56); Albumin 3.7 G/DL (3.4-5.0); Alkaline Phosphatase 106 U/L (45-117); Aspartate Amino Transferase 15 U/L (0-37); Blood Urea Nitrogen 22 MG/DL (7-18); Calcium 9.5 MG/DL (8.5-10.1); Estimated Glom Filtration Rate 63 ML/MIN; Ferritin 22.8 ng/ml (8-252); Glucose 117 MG/DL (74-106); Osmolality,Calculated 276.8 MOS/KG (273-304); Total Protein 7.8 G/DL (6.4-8.3)
[2019-10-26 17:37] LABS: Troponin I 0.645 NG/ML (0.00-0.045)
[2019-10-26] MEDS ORDERED: DEXTROSE 50% 25 GM/50 ML VIAL IV PRN (18:50)
[2019-10-26] MEDS ORDERED: GLUCAGON 1 MG VIAL IM PRN ×2 (18:50)
[2019-10-26] MEDS ORDERED: DEXTROSE 10% 250 ML BAG IV PRN (18:50)
[2019-10-26] MEDS: LACTATED RINGERS 1,000 ML IV SCH (19:21)
[2019-10-26] MEDS: MORPHINE 4 MG/1 ML VIAL IV PRN (21:29)
[2019-10-26] MEDS: ENOXAPARIN 80 MG/0.8 ML SYRINGE SUBCUT SCH (21:33)
[2019-10-26] MEDS: INSULIN LISPRO 100 UNIT/ML SUBCUT SCH (22:19)
[2019-10-27 02:16] LABS: Basophils % 0.2 % (0.0-0.8); Eosinophils # 0.1 10*3/uL (0.0-0.87); Eosinophils % 2.3 % (0.00-10.9); Hematocrit 36.6 VOL% (35.7-47.0); Hemoglobin 11.5 GM/DL (12.0-16.0); Immature Granulocytes % 0.5 %; Immature Granulocytes Absolute 0.02 #; Lymphocytes # 1.6 10*3/uL (1.4-4.0); Lymphocytes % 37.8 % (21.3-54.2); Mean Corpuscular HGB Conc 31.4 GM/DL (32-36); Mean Corpuscular Volume 83.6 FL (87-102); Mean Platelet Volume 11.6 FL (9.6-12.0); Monocytes % 10.1 % (1.7-12.7); Neutrophils % 49.1 % (38.7-73.9); Platelet Count 130 T/CUMM (130-400); Red Blood Count 4.38 MC/CUMM (3.8-5.5); White Blood Count 4.3 T/CUMM (4-12)
[2019-10-27 02:21] LABS: Troponin I 0.552 NG/ML (0.00-0.045)
[2019-10-27 02:43] LABS: Risk Ratio 7.12; Thyroid Stimulating Hormone 2.4 uIU/ml (0.358-3.74); VLDL CHOLESTEROL 64.8 MG/DL
[2019-10-27] MEDS: MORPHINE 4 MG/1 ML VIAL IV PRN (03:45)
[2019-10-27 07:02] LABS: Troponin I 0.558 NG/ML (0.00-0.045)
[2019-10-27] MEDS ORDERED: ASPIRIN CHEW 81 MG TABLET PO ONE (07:32)
[2019-10-27] MEDS: NITROGLYCERIN SL 0.4 MG TABLET SL PRN ×4 (07:37→08:26)
[2019-10-27] MEDS: ONDANSETRON 4 MG/2 ML VIAL IV PRN (07:37)
[2019-10-27] MEDS: INSULIN LISPRO 100 UNIT/ML SUBCUT SCH ×4 (07:45→22:28)
[2019-10-27] MEDS: LACTATED RINGERS 1,000 ML IV SCH ×2 (08:00→23:32)
[2019-10-27 08:03] LABS: Troponin I 0.618 NG/ML (0.00-0.045)
[2019-10-27] MEDS ORDERED: KETOROLAC 30 MG/1 ML VIAL IV ONE (08:30)
[2019-10-27] MEDS ORDERED: hydrALAZINE 20 MG/1 ML VIAL IV PRN (08:35)
[2019-10-27] MEDS ORDERED: LOSARTAN/HCTZ 50-12.5 MG TABLET PO SCH (09:00)
[2019-10-27] MEDS ORDERED: LOSARTAN 50 MG TABLET PO SCH (09:00)
[2019-10-27] MEDS ORDERED: ASPIRIN EC 325 MG TABLET PO SCH (09:00)
[2019-10-27] MEDS ORDERED: GABAPENTIN 100 MG CAPSULE PO SCH (09:00)
[2019-10-27] MEDS: PANTOPRAZOLE 40 MG TABLET PO SCH (09:21)
[2019-10-27] MEDS: GABAPENTIN 300 MG CAPSULE PO SCH ×5 (09:21→21:28)
[2019-10-27] MEDS: ACETAMINOPHEN 325 MG TABLET PO SCH ×2 (09:22→21:21)
[2019-10-27] MEDS: amLODIPine 5 MG TABLET PO SCH (09:22)
[2019-10-27] MEDS: SERTRALINE 100 MG TABLET PO SCH (11:57)
[2019-10-27] MEDS: levETIRAcetam 500 MG TABLET PO SCH ×2 (11:58→21:21)
[2019-10-27] MEDS ORDERED: DIAZEPAM 5 MG TABLET PO ONE (15:02)
[2019-10-27] MEDS ORDERED: MAGNESIUM SULF RIDER 2 GM in PREMIX 1 EACH IV PRN (15:02)
[2019-10-27] MEDS ORDERED: diphenhydrAMINE CAP 25 MG CAPSULE PO ONE (15:02)
[2019-10-27] MEDS ORDERED: POTASSIUM CHLORIDE RIDER 10 MEQ in PREMIX 1 EACH IV PRN (15:02)
[2019-10-27] MEDS ORDERED: NITROGLYCERIN DRIP 50 MG/250 ML BOTTLE IV ONE (15:14)
[2019-10-27] MEDS ORDERED: HEPARIN/NACL 0.9% 2 UNITS/ML 1,000 ML IV ONE (15:14)
[2019-10-27] MEDS ORDERED: LIDOCAINE 1% 20 ML VIAL ONE (15:14)
[2019-10-27] MEDS ORDERED: VERAPAMIL 5 MG/2 ML VIAL ONE (15:15)
[2019-10-27] MEDS ORDERED: MIDAZOLAM 2 MG/2 ML VIAL ONE (15:16)
[2019-10-27] MEDS ORDERED: HYDROmorphone 2 MG/1 ML VIAL ONE (15:16)
[2019-10-27] MEDS ORDERED: ENOXAPARIN 30 MG/0.3 ML SYRINGE ONE (15:35)
[2019-10-27] MEDS ORDERED: BIVALIRUDIN 250 MG VIAL IV ONE (15:59)
[2019-10-27] MEDS ORDERED: TICAGRELOR 90 MG TABLET ONE (16:09)
[2019-10-27] MEDS ORDERED: SODIUM CHLORIDE 0.9% 1,000 ML IV SCH (16:30)
[2019-10-27] MEDS: ENOXAPARIN 80 MG/0.8 ML SYRINGE SUBCUT SCH (21:20)
[2019-10-27] MEDS: risperiDONE 1 MG TABLET PO SCH (21:21)
[2019-10-27] MEDS: ROSUVASTATIN 20 MG TABLET PO SCH (21:21)
[2019-10-27] MEDS: TICAGRELOR 90 MG TABLET PO SCH (21:21)
[2019-10-27] MEDS: carvediloL 6.25 MG TABLET PO SCH (21:22)
[2019-10-27] MEDS: ASPIRIN CHEW 81 MG TABLET PO SCH (21:22)
[2019-10-28] MEDS: LACTATED RINGERS 1,000 ML IV SCH ×2 (04:33→11:38)
[2019-10-28 07:37] LABS: Calcium 8.3 MG/DL (8.5-10.1); Osmolality,Calculated 277.8 MOS/KG (273-304)
[2019-10-28 07:44] LABS: Basophils % 0.4 % (0.0-0.8); Eosinophils # 0.1 10*3/uL (0.0-0.87); Eosinophils % 1.2 % (0.00-10.9); Hematocrit 34.8 VOL% (35.7-47.0); Hemoglobin 10.9 GM/DL (12.0-16.0); Immature Granulocytes % 0.7 %; Immature Granulocytes Absolute 0.04 #; Lymphocytes # 1.1 10*3/uL (1.4-4.0); Lymphocytes % 18.4 % (21.3-54.2); Mean Corpuscular HGB Conc 31.3 GM/DL (32-36); Mean Corpuscular Volume 82.5 FL (87-102); Mean Platelet Volume 11.5 FL (9.6-12.0); Monocytes % 8.1 % (1.7-12.7); Neutrophils % 71.2 % (38.7-73.9); Red Blood Count 4.22 MC/CUMM (3.8-5.5); White Blood Count 5.7 T/CUMM (4-12)
[2019-10-28 07:45] LABS: Platelet Count 110 T/CUMM (130-400)
[2019-10-28 08:01] LABS: Hypochromasia 1+; Microcytosis Slight; Platelet Estimate Decreased
[2019-10-28] MEDS: TICAGRELOR 90 MG TABLET PO SCH ×2 (08:56→22:26)
[2019-10-28] MEDS: GABAPENTIN 300 MG CAPSULE PO SCH ×5 (08:56→22:27)
[2019-10-28] MEDS: LOSARTAN 50 MG TABLET PO SCH (08:56)
[2019-10-28] MEDS: carvediloL 6.25 MG TABLET PO SCH ×2 (08:56→16:06)
[2019-10-28] MEDS: levETIRAcetam 500 MG TABLET PO SCH ×2 (08:56→22:26)
[2019-10-28] MEDS: amLODIPine 5 MG TABLET PO SCH (08:57)
[2019-10-28] MEDS: PANTOPRAZOLE 40 MG TABLET PO SCH (08:57)
[2019-10-28] MEDS: ACETAMINOPHEN 325 MG TABLET PO SCH ×2 (08:57→22:24)
[2019-10-28] MEDS: SERTRALINE 100 MG TABLET PO SCH (08:58)
[2019-10-28] MEDS: INSULIN LISPRO 100 UNIT/ML SUBCUT SCH ×3 (09:00→17:00)
[2019-10-28] MEDS ORDERED: KETOROLAC 15 MG/1 ML VIAL IV ONE (10:22)
[2019-10-28] MEDS: ISOSORBIDE MONONITRATE 30 MG TABLET PO SCH (12:54)
[2019-10-28] MEDS: NITROGLYCERIN SL 0.4 MG TABLET SL PRN ×2 (18:28→18:57)
[2019-10-28] MEDS: ONDANSETRON 4 MG/2 ML VIAL IV PRN (19:15)
[2019-10-28] MEDS: MORPHINE 4 MG/1 ML VIAL IV PRN (19:22)
[2019-10-28] MEDS: risperiDONE 1 MG TABLET PO SCH (22:24)
[2019-10-28] MEDS: ROSUVASTATIN 20 MG TABLET PO SCH (22:24)
[2019-10-28] MEDS: ASPIRIN CHEW 81 MG TABLET PO SCH (22:26)
[2019-10-28] MEDS: ENOXAPARIN 40 MG/0.4 ML SYRINGE SUBCUT SCH (22:28)
[2019-10-29] MEDS: INSULIN LISPRO 100 UNIT/ML SUBCUT SCH ×5 (04:46→22:56)
[2019-10-29] MEDS: ONDANSETRON 4 MG/2 ML VIAL IV PRN ×2 (05:01→22:03)
[2019-10-29] MEDS: MORPHINE 4 MG/1 ML VIAL IV PRN ×3 (05:01→22:03)
[2019-10-29 06:34] LABS: Basophils % 0.4 % (0.0-0.8); Eosinophils # 0.1 10*3/uL (0.0-0.87); Eosinophils % 2.8 % (0.00-10.9); Hematocrit 31.5 VOL% (35.7-47.0); Immature Granulocytes % 0.2 %; Immature Granulocytes Absolute 0.01 #; Lymphocytes # 1.1 10*3/uL (1.4-4.0); Lymphocytes % 24.9 % (21.3-54.2); Mean Corpuscular HGB Conc 31.7 GM/DL (32-36); Mean Corpuscular Volume 81.8 FL (87-102); Mean Platelet Volume 11.6 FL (9.6-12.0); Monocytes % 9.2 % (1.7-12.7); Neutrophils % 62.5 % (38.7-73.9); Platelet Count 97 T/CUMM (130-400); Red Blood Count 3.85 MC/CUMM (3.8-5.5); Red Cell Distribution Width 14.9 % (9.3-17.3); White Blood Count 4.6 T/CUMM (4-12)
[2019-10-29 07:33] LABS: Calcium 8.6 MG/DL (8.5-10.1); Osmolality,Calculated 277.7 MOS/KG (273-304)
[2019-10-29] MEDS: LACTATED RINGERS 1,000 ML IV SCH (08:20)
[2019-10-29] MEDS ORDERED: FUROSEMIDE 20 MG/2 ML VIAL IV ONE (08:26)
[2019-10-29] MEDS: amLODIPine 10 MG TABLET PO SCH (09:33)
[2019-10-29] MEDS: ACETAMINOPHEN 325 MG TABLET PO SCH ×2 (09:33→22:55)
[2019-10-29] MEDS: GABAPENTIN 300 MG CAPSULE PO SCH ×3 (09:34→22:36)
[2019-10-29] MEDS: LOSARTAN 50 MG TABLET PO SCH (09:34)
[2019-10-29] MEDS: TICAGRELOR 90 MG TABLET PO SCH ×2 (09:35→22:36)
[2019-10-29] MEDS: PANTOPRAZOLE 40 MG TABLET PO SCH (09:35)
[2019-10-29] MEDS: levETIRAcetam 500 MG TABLET PO SCH ×2 (09:35→22:34)
[2019-10-29] MEDS: carvediloL 6.25 MG TABLET PO SCH ×2 (09:35→16:29)
[2019-10-29] MEDS: ISOSORBIDE MONONITRATE 30 MG TABLET PO SCH (09:35)
[2019-10-29] MEDS: SERTRALINE 100 MG TABLET PO SCH (09:35)
[2019-10-29 11:38] LABS: Hypochromasia 3+; Microcytosis 1+; Platelet Estimate Decreased; Polychromasia Slight
[2019-10-29] MEDS: ACETAMINOPHEN 325 MG TABLET PO PRN (18:40)
[2019-10-29] MEDS: risperiDONE 1 MG TABLET PO SCH (22:34)
[2019-10-29] MEDS: ASPIRIN CHEW 81 MG TABLET PO SCH (22:34)
[2019-10-29] MEDS: ROSUVASTATIN 20 MG TABLET PO SCH (22:36)
[2019-10-29] MEDS: ENOXAPARIN 40 MG/0.4 ML SYRINGE SUBCUT SCH (22:37)
[2019-10-30] MEDS: MORPHINE 4 MG/1 ML VIAL IV PRN ×3 (04:03→19:52)
[2019-10-30] MEDS: ONDANSETRON 4 MG/2 ML VIAL IV PRN ×2 (04:03→19:39)
[2019-10-30 06:39] LABS: Basophils % 0.3 % (0.0-0.8); Eosinophils # 0.2 10*3/uL (0.0-0.87); Eosinophils % 4.8 % (0.00-10.9); Hematocrit 33.1 VOL% (35.7-47.0); Hemoglobin 10.3 GM/DL (12.0-16.0); Immature Granulocytes % 0.5 %; Immature Granulocytes Absolute 0.02 #; Mean Corpuscular HGB Conc 31.1 GM/DL (32-36); Mean Platelet Volume 11.3 FL (9.6-12.0); Monocytes % 11.2 % (1.7-12.7); Neutrophils % 57.2 % (38.7-73.9); Platelet Count 111 T/CUMM (130-400); Red Blood Count 3.94 MC/CUMM (3.8-5.5); Red Cell Distribution Width 14.7 % (9.3-17.3); White Blood Count 3.9 T/CUMM (4-12)
[2019-10-30 07:26] LABS: Calcium 8.7 MG/DL (8.5-10.1); Osmolality,Calculated 283.3 MOS/KG (273-304)
[2019-10-30] MEDS: INSULIN LISPRO 100 UNIT/ML SUBCUT SCH ×4 (08:36→23:17)
[2019-10-30] MEDS: amLODIPine 10 MG TABLET PO SCH (08:38)
[2019-10-30] MEDS: ACETAMINOPHEN 325 MG TABLET PO SCH ×2 (08:38→21:29)
[2019-10-30] MEDS: PANTOPRAZOLE 40 MG TABLET PO SCH (08:38)
[2019-10-30] MEDS: SERTRALINE 100 MG TABLET PO SCH (08:39)
[2019-10-30] MEDS: ISOSORBIDE MONONITRATE 30 MG TABLET PO SCH (08:39)
[2019-10-30] MEDS: carvediloL 6.25 MG TABLET PO SCH ×2 (08:39→16:16)
[2019-10-30] MEDS: TICAGRELOR 90 MG TABLET PO SCH ×2 (08:39→21:30)
[2019-10-30] MEDS: LOSARTAN 50 MG TABLET PO SCH (08:39)
[2019-10-30] MEDS: GABAPENTIN 300 MG CAPSULE PO SCH ×2 (08:39→21:28)
[2019-10-30] MEDS: levETIRAcetam 500 MG TABLET PO SCH ×2 (09:29→21:29)
[2019-10-30] MEDS: MUPIROCIN 2% OINT 22 GM TUBE TOP SCH ×2 (12:09→21:31)
[2019-10-30] MEDS: glipiZIDE 5 MG TABLET PO SCH (16:16)
[2019-10-30] MEDS: risperiDONE 1 MG TABLET PO SCH (21:28)
[2019-10-30] MEDS: ASPIRIN CHEW 81 MG TABLET PO SCH (21:28)
[2019-10-30] MEDS: gemfibroziL 600 MG TABLET PO SCH (21:30)
[2019-10-30] MEDS: ROSUVASTATIN 20 MG TABLET PO SCH (21:30)
[2019-10-30] MEDS: ENOXAPARIN 40 MG/0.4 ML SYRINGE SUBCUT SCH (21:31)
[2019-10-31] MEDS: MORPHINE 4 MG/1 ML VIAL IV PRN ×3 (02:44→22:19)
[2019-10-31] MEDS: ONDANSETRON 4 MG/2 ML VIAL IV PRN ×3 (02:44→20:49)
[2019-10-31 05:36] LABS: Hematocrit 30.5 VOL% (35.7-47.0); Hemoglobin 9.6 GM/DL (12.0-16.0); Red Blood Count 3.67 MC/CUMM (3.8-5.5); White Blood Count 4.2 T/CUMM (4-12)
[2019-10-31 05:37] LABS: Basophils % 0.2 % (0.0-0.8); Eosinophils # 0.2 10*3/uL (0.0-0.87); Eosinophils % 4.2 % (0.00-10.9); Immature Granulocytes % 0.2 %; Immature Granulocytes Absolute 0.01 #; Lymphocytes # 1.2 10*3/uL (1.4-4.0); Lymphocytes % 27.1 % (21.3-54.2); Mean Corpuscular HGB Conc 31.5 GM/DL (32-36); Mean Corpuscular Volume 83.1 FL (87-102); Mean Platelet Volume 11.6 FL (9.6-12.0); Monocytes % 11.3 % (1.7-12.7); Platelet Count 103 T/CUMM (130-400); Red Cell Distribution Width 14.7 % (9.3-17.3)
[2019-10-31 06:04] LABS: Hypochromasia 1+; Platelet Estimate Decreased
[2019-10-31 06:05] LABS: Microcytosis Slight
[2019-10-31 06:29] LABS: Calcium 8.9 MG/DL (8.5-10.1); Osmolality,Calculated 276.7 MOS/KG (273-304)
[2019-10-31] MEDS: INSULIN LISPRO 100 UNIT/ML SUBCUT SCH ×4 (08:17→21:20)
[2019-10-31] MEDS: glipiZIDE 5 MG TABLET PO SCH ×2 (09:08→16:52)
[2019-10-31] MEDS: LOSARTAN 50 MG TABLET PO SCH (09:08)
[2019-10-31] MEDS: GABAPENTIN 300 MG CAPSULE PO SCH ×2 (09:08→20:46)
[2019-10-31] MEDS: ISOSORBIDE MONONITRATE 30 MG TABLET PO SCH (09:08)
[2019-10-31] MEDS: SERTRALINE 100 MG TABLET PO SCH (09:09)
[2019-10-31] MEDS: amLODIPine 10 MG TABLET PO SCH (09:09)
[2019-10-31] MEDS: TICAGRELOR 90 MG TABLET PO SCH ×2 (09:09→20:48)
[2019-10-31] MEDS: carvediloL 6.25 MG TABLET PO SCH ×2 (09:09→16:52)
[2019-10-31] MEDS: levETIRAcetam 500 MG TABLET PO SCH ×2 (09:09→20:47)
[2019-10-31] MEDS: PANTOPRAZOLE 40 MG TABLET PO SCH (09:09)
[2019-10-31] MEDS: ACETAMINOPHEN 325 MG TABLET PO SCH ×2 (09:10→20:47)
[2019-10-31] MEDS: ACETAMINOPHEN 325 MG TABLET PO PRN (09:10)
[2019-10-31] MEDS: MUPIROCIN 2% OINT 22 GM TUBE TOP SCH ×2 (09:12→21:20)
[2019-10-31] MEDS: ROSUVASTATIN 20 MG TABLET PO SCH (20:47)
[2019-10-31] MEDS: ASPIRIN CHEW 81 MG TABLET PO SCH (20:47)
[2019-10-31] MEDS: ENOXAPARIN 40 MG/0.4 ML SYRINGE SUBCUT SCH (20:48)
[2019-10-31] MEDS: risperiDONE 1 MG TABLET PO SCH (20:48)
[2019-10-31] MEDS: gemfibroziL 600 MG TABLET PO SCH (20:48)
[2019-11-01 08:06] VITALS: BP 132/75
[2019-11-01 08:22] LABS: Basophils % 0.2 % (0.0-0.8); Eosinophils # 0.2 10*3/uL (0.0-0.87); Eosinophils % 3.7 % (0.00-10.9); Hematocrit 36.6 VOL% (35.7-47.0); Hemoglobin 11.5 GM/DL (12.0-16.0); Immature Granulocytes % 0.7 %; Immature Granulocytes Absolute 0.03 #; Lymphocytes # 0.9 10*3/uL (1.4-4.0); Lymphocytes % 20.6 % (21.3-54.2); Mean Corpuscular HGB Conc 31.4 GM/DL (32-36); Mean Corpuscular Volume 82.6 FL (87-102); Mean Platelet Volume 11.1 FL (9.6-12.0); Monocytes % 9.3 % (1.7-12.7); Neutrophils % 65.5 % (38.7-73.9); Platelet Count 111 T/CUMM (130-400); Red Blood Count 4.43 MC/CUMM (3.8-5.5); Red Cell Distribution Width 14.8 % (9.3-17.3); White Blood Count 4.3 T/CUMM (4-12)
[2019-11-01 08:38] LABS: Hypochromasia 1+; Platelet Estimate Decreased
[2019-11-01 08:39] LABS: Microcytosis Slight
[2019-11-01] MEDS: carvediloL 6.25 MG TABLET PO SCH (08:45)
[2019-11-01] MEDS: GABAPENTIN 300 MG CAPSULE PO SCH (08:45)
[2019-11-01] MEDS: TICAGRELOR 90 MG TABLET PO SCH (08:45)
[2019-11-01] MEDS: PANTOPRAZOLE 40 MG TABLET PO SCH (08:46)
[2019-11-01] MEDS: SERTRALINE 100 MG TABLET PO SCH (08:46)
[2019-11-01] MEDS: ISOSORBIDE MONONITRATE 30 MG TABLET PO SCH (08:46)
[2019-11-01] MEDS: LOSARTAN 50 MG TABLET PO SCH (08:46)
[2019-11-01] MEDS: amLODIPine 10 MG TABLET PO SCH (08:46)
[2019-11-01] MEDS: glipiZIDE 5 MG TABLET PO SCH (08:46)
[2019-11-01] MEDS: INSULIN LISPRO 100 UNIT/ML SUBCUT SCH ×2 (08:46→11:55)
[2019-11-01] MEDS: levETIRAcetam 500 MG TABLET PO SCH (08:46)
[2019-11-01] MEDS: ACETAMINOPHEN 325 MG TABLET PO SCH (08:47)
[2019-11-01] MEDS: MUPIROCIN 2% OINT 22 GM TUBE TOP SCH (08:47)
[2019-11-01 08:48] LABS: Calcium 9.4 MG/DL (8.5-10.1); Osmolality,Calculated 274.8 MOS/KG (273-304)
[2019-11-01] MEDS: ACETAMINOPHEN 325 MG TABLET PO PRN (08:48)
== END 2019-11-01 14:01 | disposition swing bed (61) | DRG 247 ==
LOC: N.EDINP 15:47 → N.ED 15:47 → N.TELES 19:45 → SUATTDRO 10-28 13:07
PROVIDERS: ADMIT Internal Medicine; ATTEND Internal Medicine
PROC: CLCCHCL (ICD-10-PCS; 2019-10-27 15:45)

== ENCOUNTER 2019-11-18 14:50 | Observation (INO) ==
[2019-11-18] MEDS ORDERED: MORPHINE 4 MG/1 ML VIAL IV STA (15:24)
[2019-11-18] MEDS ORDERED: ASPIRIN 325 MG TABLET PO STA (15:24)
[2019-11-18 16:19] LABS: Basophils % 0.4 % (0.0-0.8); Eosinophils # 0.1 10*3/uL (0.0-0.87); Eosinophils % 1.9 % (0.00-10.9); Hematocrit 32.5 VOL% (35.7-47.0); Hemoglobin 10.4 GM/DL (12.0-16.0); Immature Granulocytes % 0.4 %; Immature Granulocytes Absolute 0.02 #; Lymphocytes # 1.2 10*3/uL (1.4-4.0); Lymphocytes % 24.3 % (21.3-54.2); Mean Corpuscular Volume 83.5 FL (87-102); Mean Platelet Volume 10.9 FL (9.6-12.0); Monocytes % 9.5 % (1.7-12.7); Neutrophils % 63.5 % (38.7-73.9); Platelet Count 147 T/CUMM (130-400); Red Blood Count 3.89 MC/CUMM (3.8-5.5); Red Cell Distribution Width 14.4 % (9.3-17.3); White Blood Count 4.7 T/CUMM (4-12)
[2019-11-18 16:24] LABS: Calcium 8.5 MG/DL (8.5-10.1); Osmolality,Calculated 276.7 MOS/KG (273-304)
[2019-11-18] MEDS ORDERED: ONDANSETRON 4 MG/2 ML VIAL ONE (16:25)
[2019-11-18] MEDS ORDERED: ONDANSETRON 4 MG/2 ML VIAL IV STA (16:32)
[2019-11-18] MEDS ORDERED: MAGNESIUM SULF RIDER 2 GM in PREMIX 1 EACH IV PRN (17:55)
[2019-11-18] MEDS ORDERED: MAGNESIUM SULF RIDER 4 GM in PREMIX 1 EACH IV PRN (17:55)
[2019-11-18] MEDS ORDERED: NITROGLYCERIN SL 0.4 MG TABLET SL PRN (17:59)
[2019-11-18] MEDS: NITROGLYCERIN SL 0.4 MG TABLET SL PRN (18:26)
[2019-11-18] MEDS: ENOXAPARIN 80 MG/0.8 ML SYRINGE SUBCUT SCH (21:58)
[2019-11-18] MEDS: KETOROLAC 30 MG/1 ML VIAL IV SCH (21:58)
[2019-11-18] MEDS: ROSUVASTATIN 20 MG TABLET PO SCH (21:59)
[2019-11-18] MEDS: GABAPENTIN 300 MG CAPSULE PO SCH (21:59)
[2019-11-18] MEDS: glipiZIDE 10 MG TABLET PO SCH (22:00)
[2019-11-18] MEDS: gemfibroziL 600 MG TABLET PO SCH (22:00)
[2019-11-18] MEDS: tiZANidine 4 MG TABLET PO SCH (22:00)
[2019-11-18] MEDS: ASPIRIN CHEW 81 MG TABLET PO SCH (22:00)
[2019-11-18] MEDS: levETIRAcetam 500 MG TABLET PO SCH (22:04)
[2019-11-18] MEDS: risperiDONE 1 MG TABLET PO SCH (22:04)
[2019-11-19] MEDS: KETOROLAC 30 MG/1 ML VIAL IV SCH ×3 (03:06→13:34)
[2019-11-19 06:17] LABS: Troponin I 0.176 NG/ML (0.00-0.045)
[2019-11-19] MEDS: LOSARTAN 50 MG TABLET PO SCH (09:20)
[2019-11-19] MEDS: ISOSORBIDE MONONITRATE 60 MG TABLET PO SCH (09:20)
[2019-11-19] MEDS: GABAPENTIN 300 MG CAPSULE PO SCH ×2 (09:20→21:49)
[2019-11-19] MEDS: glipiZIDE 10 MG TABLET PO SCH ×2 (09:21→21:49)
[2019-11-19] MEDS: gemfibroziL 600 MG TABLET PO SCH ×2 (09:21→21:50)
[2019-11-19] MEDS: CLOPIDOGREL 75 MG TABLET PO SCH (09:21)
[2019-11-19] MEDS: levETIRAcetam 500 MG TABLET PO SCH ×2 (09:21→21:50)
[2019-11-19] MEDS: amLODIPine 5 MG TABLET PO SCH (09:21)
[2019-11-19] MEDS: SERTRALINE 100 MG TABLET PO SCH (09:22)
[2019-11-19] MEDS: PANTOPRAZOLE 40 MG TABLET PO SCH (09:22)
[2019-11-19] MEDS: ONDANSETRON 4 MG/2 ML VIAL IV PRN ×2 (10:47→21:48)
[2019-11-19] MEDS: traMADol 50 MG TABLET PO PRN ×2 (10:54→21:49)
[2019-11-19] MEDS: ENOXAPARIN 80 MG/0.8 ML SYRINGE SUBCUT SCH (17:13)
[2019-11-19] MEDS: KETOROLAC 10 MG TABLET PO SCH (17:14)
[2019-11-19] MEDS: ROSUVASTATIN 20 MG TABLET PO SCH (21:50)
[2019-11-19] MEDS: tiZANidine 4 MG TABLET PO SCH (21:50)
[2019-11-19] MEDS: ASPIRIN CHEW 81 MG TABLET PO SCH (21:50)
[2019-11-19] MEDS: risperiDONE 1 MG TABLET PO SCH (21:50)
[2019-11-20] MEDS: KETOROLAC 10 MG TABLET PO SCH ×4 (02:25→18:26)
[2019-11-20] MEDS: CLOPIDOGREL 75 MG TABLET PO SCH (09:15)
[2019-11-20] MEDS: amLODIPine 5 MG TABLET PO SCH (09:15)
[2019-11-20] MEDS: GABAPENTIN 300 MG CAPSULE PO SCH ×2 (09:15→21:47)
[2019-11-20] MEDS: SERTRALINE 100 MG TABLET PO SCH (09:15)
[2019-11-20] MEDS: PANTOPRAZOLE 40 MG TABLET PO SCH (09:15)
[2019-11-20] MEDS: gemfibroziL 600 MG TABLET PO SCH ×2 (09:15→21:49)
[2019-11-20] MEDS: glipiZIDE 10 MG TABLET PO SCH ×2 (09:15→21:47)
[2019-11-20] MEDS: ISOSORBIDE MONONITRATE 60 MG TABLET PO SCH (09:15)
[2019-11-20] MEDS: LOSARTAN 50 MG TABLET PO SCH (09:15)
[2019-11-20] MEDS: traMADol 50 MG TABLET PO PRN ×3 (09:16→21:48)
[2019-11-20] MEDS: levETIRAcetam 500 MG TABLET PO SCH ×2 (09:17→21:48)
[2019-11-20] MEDS: ENOXAPARIN 80 MG/0.8 ML SYRINGE SUBCUT SCH (18:28)
[2019-11-20] MEDS: ONDANSETRON 4 MG/2 ML VIAL IV PRN (19:43)
[2019-11-20] MEDS: ASPIRIN CHEW 81 MG TABLET PO SCH (21:48)
[2019-11-20] MEDS: risperiDONE 1 MG TABLET PO SCH (21:48)
[2019-11-20] MEDS: tiZANidine 4 MG TABLET PO SCH (21:49)
[2019-11-20] MEDS: ROSUVASTATIN 20 MG TABLET PO SCH (21:49)
[2019-11-21] MEDS: KETOROLAC 10 MG TABLET PO SCH ×3 (00:15→11:25)
[2019-11-21] MEDS: CLOPIDOGREL 75 MG TABLET PO SCH (08:27)
[2019-11-21] MEDS: RANOLAZINE 500 MG TABLET PO SCH ×2 (08:27→21:58)
[2019-11-21] MEDS: SERTRALINE 100 MG TABLET PO SCH (08:27)
[2019-11-21] MEDS: PANTOPRAZOLE 40 MG TABLET PO SCH (08:27)
[2019-11-21] MEDS: gemfibroziL 600 MG TABLET PO SCH ×2 (08:27→21:58)
[2019-11-21] MEDS: LOSARTAN 50 MG TABLET PO SCH (08:28)
[2019-11-21] MEDS: amLODIPine 5 MG TABLET PO SCH (08:28)
[2019-11-21] MEDS: levETIRAcetam 500 MG TABLET PO SCH ×2 (08:28→21:58)
[2019-11-21] MEDS: glipiZIDE 10 MG TABLET PO SCH (08:28)
[2019-11-21] MEDS: GABAPENTIN 300 MG CAPSULE PO SCH ×2 (08:28→21:57)
[2019-11-21] MEDS: ISOSORBIDE MONONITRATE 60 MG TABLET PO SCH (08:28)
[2019-11-21] MEDS ORDERED: MAGNESIUM SULF RIDER 2 GM in PREMIX 1 EACH IV PRN (10:16)
[2019-11-21] MEDS ORDERED: diphenhydrAMINE CAP 25 MG CAPSULE PO ONE (10:16)
[2019-11-21] MEDS ORDERED: DIAZEPAM 5 MG TABLET PO ONE (10:16)
[2019-11-21] MEDS ORDERED: POTASSIUM CHLORIDE RIDER 10 MEQ in PREMIX 1 EACH IV PRN (10:16)
[2019-11-21 10:44] LABS: Basophils % 0.4 % (0.0-0.8); Eosinophils # 0.1 10*3/uL (0.0-0.87); Eosinophils % 2.2 % (0.00-10.9); Hematocrit 32.4 VOL% (35.7-47.0); Hemoglobin 9.7 GM/DL (12.0-16.0); Immature Granulocytes % 0.4 %; Immature Granulocytes Absolute 0.02 #; Lymphocytes # 0.9 10*3/uL (1.4-4.0); Lymphocytes % 17.9 % (21.3-54.2); Mean Corpuscular HGB Conc 29.9 GM/DL (32-36); Mean Platelet Volume 10.6 FL (9.6-12.0); Monocytes % 9.6 % (1.7-12.7); Neutrophils % 69.5 % (38.7-73.9); Platelet Count 117 T/CUMM (130-400); Red Blood Count 3.81 MC/CUMM (3.8-5.5); Red Cell Distribution Width 14.4 % (9.3-17.3)
[2019-11-21 11:02] LABS: Calcium 8.8 MG/DL (8.5-10.1); Osmolality,Calculated 277.4 MOS/KG (273-304)
[2019-11-21] MEDS ORDERED: GLUCAGON 1 MG VIAL IV ONE (11:08)
[2019-11-21] MEDS ORDERED: HEPARIN/NACL 0.9% 2 UNITS/ML 1,000 ML IV ONE (11:12)
[2019-11-21] MEDS ORDERED: LIDOCAINE 1% 20 ML VIAL ONE (11:12)
[2019-11-21] MEDS ORDERED: NITROGLYCERIN DRIP 50 MG/250 ML BOTTLE IV ONE (11:12)
[2019-11-21] MEDS ORDERED: VERAPAMIL 5 MG/2 ML VIAL ONE (11:13)
[2019-11-21] MEDS ORDERED: MIDAZOLAM 2 MG/2 ML VIAL ONE (11:35)
[2019-11-21] MEDS ORDERED: HYDROmorphone 2 MG/1 ML VIAL ONE (11:35)
[2019-11-21] MEDS ORDERED: ENOXAPARIN 30 MG/0.3 ML SYRINGE ONE (11:49)
[2019-11-21] MEDS ORDERED: DEXTROSE 10% 250 ML BAG IV PRN (11:55)
[2019-11-21] MEDS ORDERED: GLUCAGON 1 MG VIAL IM PRN (11:55)
[2019-11-21] MEDS: ENOXAPARIN 80 MG/0.8 ML SYRINGE SUBCUT SCH (18:18)
[2019-11-21 19:47] LABS: Apearance,Urine CLEAR (Clear); Bilirubin,Urine Negative (Negative); Blood, Urine Negative (Negative); Glucose,Urine (UA) Negative (Negative); Ketones,Urine Negative (Negative); Mucus,Urine Occasional /LPF (Occasional); Nitrite,Urine Negative (Negative); Protein,Urine Negative; Squamous Epithelial Cell,Urine Occasional /HPF (0-10); Urine Color Yellow (Yellow); Urine Specific Gravity 1.027 (1.001-1.035); Urine Urobilinogen < 2.0 EU/DL (0.2-1.0)
[2019-11-21] MEDS: traMADol 50 MG TABLET PO PRN (20:43)
[2019-11-21] MEDS: risperiDONE 1 MG TABLET PO SCH (21:58)
[2019-11-21] MEDS: tiZANidine 4 MG TABLET PO SCH (21:58)
[2019-11-21] MEDS: DICLOFENAC SODIUM 50 MG TABLET PO SCH (21:58)
[2019-11-21] MEDS: ASPIRIN CHEW 81 MG TABLET PO SCH (21:58)
[2019-11-21] MEDS: ROSUVASTATIN 20 MG TABLET PO SCH (21:58)
[2019-11-22] MEDS: traMADol 50 MG TABLET PO PRN (05:06)
[2019-11-22 05:24] VITALS: BP 130/57
[2019-11-22 05:46] LABS: Eosinophils # 0.2 10*3/uL (0.0-0.87); Hematocrit 28.8 VOL% (35.7-47.0); Hemoglobin 8.9 GM/DL (12.0-16.0); Immature Granulocytes % 0.3 %; Immature Granulocytes Absolute 0.01 #; Mean Corpuscular HGB Conc 30.9 GM/DL (32-36); Mean Corpuscular Volume 83.5 FL (87-102); Mean Platelet Volume 11.6 FL (9.6-12.0); Monocytes % 10.8 % (1.7-12.7); Neutrophils % 56.9 % (38.7-73.9); Platelet Count 110 T/CUMM (130-400); Red Blood Count 3.45 MC/CUMM (3.8-5.5); Red Cell Distribution Width 14.4 % (9.3-17.3); White Blood Count 3.7 T/CUMM (4-12)
[2019-11-22 06:03] LABS: Calcium 8.5 MG/DL (8.5-10.1); Osmolality,Calculated 281.5 MOS/KG (273-304)
[2019-11-22 07:09] LABS: Hypochromasia 1+; Microcytosis Slight; Ovalocytes Slight
[2019-11-22 07:18] LABS: Platelet Estimate Decreased
[2019-11-22] MEDS: CLOPIDOGREL 75 MG TABLET PO SCH (08:20)
[2019-11-22] MEDS: RANOLAZINE 500 MG TABLET PO SCH (08:20)
[2019-11-22] MEDS: DICLOFENAC SODIUM 50 MG TABLET PO SCH (08:20)
[2019-11-22] MEDS: SERTRALINE 100 MG TABLET PO SCH (08:21)
[2019-11-22] MEDS: LOSARTAN 50 MG TABLET PO SCH (08:21)
[2019-11-22] MEDS: PANTOPRAZOLE 40 MG TABLET PO SCH (08:21)
[2019-11-22] MEDS: ISOSORBIDE MONONITRATE 60 MG TABLET PO SCH (08:21)
[2019-11-22] MEDS: GABAPENTIN 300 MG CAPSULE PO SCH (08:21)
[2019-11-22] MEDS: levETIRAcetam 500 MG TABLET PO SCH (08:22)
[2019-11-22] MEDS: amLODIPine 5 MG TABLET PO SCH (08:22)
[2019-11-22] MEDS: gemfibroziL 600 MG TABLET PO SCH (08:22)
[2019-11-22] MEDS ORDERED: BACITRACIN OINT 0.9 GM PACK TOP SCH (09:00)
[2019-11-22] MEDS: NITROGLYCERIN SL 0.4 MG TABLET SL PRN (11:00)
== END 2019-11-22 15:21 | disposition swing bed (61) ==
LOC: N.ED 14:50 → N.EDINP 14:50 → N.TELES 18:32
PROVIDERS: ADMIT Internal Medicine Cardiovascular Disease; ATTEND Internal Medicine Cardiovascular Disease
PROC: CLCCHCL (ICD-10-PCS; 2019-11-21 11:15)

== ENCOUNTER 2020-01-14 18:52 | Inpatient (IN) ==
[2020-01-14] MEDS ORDERED: ASPIRIN 325 MG TABLET PO STA (19:22)
[2020-01-14] MEDS ORDERED: ONDANSETRON 4 MG/2 ML VIAL IV ONE (19:30)
[2020-01-14] MEDS ORDERED: MORPHINE 4 MG/1 ML VIAL IV STA ×2 (19:30→22:50)
[2020-01-14 19:34] LABS: Basophils % 0.5 % (0.0-0.8); Eosinophils # 0.1 10*3/uL (0.0-0.87); Hematocrit 36.2 VOL% (35.7-47.0); Hemoglobin 11.4 GM/DL (12.0-16.0); Immature Granulocytes % 0.5 %; Immature Granulocytes Absolute 0.02 #; Lymphocytes # 1.2 10*3/uL (1.4-4.0); Lymphocytes % 28.9 % (21.3-54.2); Mean Corpuscular HGB Conc 31.5 GM/DL (32-36); Mean Corpuscular Volume 80.1 FL (87-102); Monocytes % 9.1 % (1.7-12.7); Platelet Count 157 T/CUMM (130-400); Red Blood Count 4.52 MC/CUMM (3.8-5.5); Red Cell Distribution Width 14.8 % (9.3-17.3); White Blood Count 4.1 T/CUMM (4-12)
[2020-01-14 19:45] LABS: Albumin 4.3 G/DL (3.4-5.0); Bilirubin,Total 0.4 MG/DL (0.2-1.0); Calcium 9.1 MG/DL (8.5-10.1); Osmolality,Calculated 289.4 MOS/KG (273-304); Total Protein 7.9 G/DL (6.4-8.3)
[2020-01-14 19:50] LABS: PT Patient Result 10.5 SECS (9.8-11.9)
[2020-01-14] MEDS ORDERED: NITROGLYCERIN SL 0.4 MG TABLET SL STA (20:40)
[2020-01-14 21:02] LABS: Ferritin 22.7 ng/ml (8-252)
[2020-01-14] MEDS ORDERED: ALBUTEROL 2.5 MG/3 ML NEB RESP TX PRN (22:30)
[2020-01-14] MEDS ORDERED: hydrALAZINE 20 MG/1 ML VIAL IV PRN (22:30)
[2020-01-14] MEDS ORDERED: DEXTROSE 50% 25 GM/50 ML VIAL IV PRN (22:30)
[2020-01-14] MEDS ORDERED: NICOTINE 21 MG/24 HR PATCH TRANSDERM PRN (22:30)
[2020-01-14] MEDS ORDERED: diphenhydrAMINE CAP 25 MG CAPSULE PO PRN (22:30)
[2020-01-14] MEDS ORDERED: PROMETHAZINE 25 MG/1 ML VIAL IM PRN (22:30)
[2020-01-14] MEDS ORDERED: guaiFENesin/DM ER 600-30 MG TABLET PO PRN (22:30)
[2020-01-14] MEDS ORDERED: GLUCAGON 1 MG VIAL IM PRN (22:30)
[2020-01-14] MEDS ORDERED: ZALEPLON 5 MG CAPSULE PO PRN (22:30)
[2020-01-15] MEDS: ENOXAPARIN 80 MG/0.8 ML SYRINGE SUBCUT SCH ×2 (00:35→11:50)
[2020-01-15] MEDS: NITROGLYCERIN SL 0.4 MG TABLET SL PRN (01:03)
[2020-01-15] MEDS: ACETAMINOPHEN 325 MG TABLET PO PRN (04:36)
[2020-01-15] MEDS: MORPHINE 4 MG/1 ML VIAL IV PRN ×3 (05:14→19:05)
[2020-01-15] MEDS ORDERED: KETOROLAC 30 MG/1 ML VIAL IV ONE (05:36)
[2020-01-15 07:58] LABS: Basophils % 0.3 % (0.0-0.8); Eosinophils # 0.1 10*3/uL (0.0-0.87); Eosinophils % 2.3 % (0.00-10.9); Hematocrit 34.8 VOL% (35.7-47.0); Hemoglobin 10.8 GM/DL (12.0-16.0); Immature Granulocytes % 0.3 %; Immature Granulocytes Absolute 0.01 #; Lymphocytes # 1.1 10*3/uL (1.4-4.0); Lymphocytes % 28.5 % (21.3-54.2); Mean Corpuscular Volume 80.7 FL (87-102); Monocytes % 13.4 % (1.7-12.7); Neutrophils % 55.2 % (38.7-73.9); Platelet Count 133 T/CUMM (130-400); Red Blood Count 4.31 MC/CUMM (3.8-5.5); Red Cell Distribution Width 14.6 % (9.3-17.3)
[2020-01-15 08:17] LABS: Osmolality,Calculated 281.1 MOS/KG (273-304)
[2020-01-15] MEDS ORDERED: gemfibroziL 600 MG TABLET PO SCH (09:00)
[2020-01-15] MEDS: LOSARTAN 50 MG TABLET PO SCH (09:41)
[2020-01-15] MEDS: levETIRAcetam 500 MG TABLET PO SCH ×2 (09:41→21:54)
[2020-01-15] MEDS: ISOSORBIDE MONONITRATE 60 MG TABLET PO SCH (09:41)
[2020-01-15] MEDS: amLODIPine 5 MG TABLET PO SCH (09:41)
[2020-01-15] MEDS: GABAPENTIN 300 MG CAPSULE PO SCH ×2 (09:41→21:55)
[2020-01-15] MEDS: CLOPIDOGREL 75 MG TABLET PO SCH (09:41)
[2020-01-15] MEDS: RANOLAZINE 500 MG TABLET PO SCH ×2 (09:41→21:54)
[2020-01-15 10:06] LABS: Troponin I 0.119 NG/ML (0.00-0.045)
[2020-01-15] MEDS ORDERED: ALUM/MAG/SIMETH/LIDO VISC 1:1 30 ML BOTTLE PO ONE (10:43)
[2020-01-15] MEDS: INSULIN LISPRO 100 UNIT/ML SUBCUT SCH ×4 (11:03→22:21)
[2020-01-15] MEDS ORDERED: NITROGLYCERIN 2% OINT 1 INCH/GM PACK TOP SCH (12:00)
[2020-01-15] MEDS: KETOROLAC 10 MG TABLET PO SCH ×2 (14:07→21:54)
[2020-01-15] MEDS ORDERED: ATORVASTATIN 10 MG TABLET PO SCH (21:00)
[2020-01-15] MEDS: risperiDONE 1 MG TABLET PO SCH (21:54)
[2020-01-15] MEDS: ASPIRIN CHEW 81 MG TABLET PO SCH (21:54)
[2020-01-16] MEDS: ENOXAPARIN 80 MG/0.8 ML SYRINGE SUBCUT SCH (00:08)
[2020-01-16] MEDS: KETOROLAC 10 MG TABLET PO SCH ×2 (01:03→09:47)
[2020-01-16 05:58] LABS: Basophils % 0.3 % (0.0-0.8); Eosinophils # 0.1 10*3/uL (0.0-0.87); Eosinophils % 2.8 % (0.00-10.9); Hematocrit 32.8 VOL% (35.7-47.0); Hemoglobin 10.2 GM/DL (12.0-16.0); Immature Granulocytes % 0.3 %; Immature Granulocytes Absolute 0.01 #; Lymphocytes % 25.1 % (21.3-54.2); Mean Corpuscular HGB Conc 31.1 GM/DL (32-36); Mean Corpuscular Volume 80.8 FL (87-102); Mean Platelet Volume 11.8 FL (9.6-12.0); Monocytes % 10.6 % (1.7-12.7); Neutrophils % 60.9 % (38.7-73.9); Platelet Count 112 T/CUMM (130-400); Red Blood Count 4.06 MC/CUMM (3.8-5.5); Red Cell Distribution Width 14.7 % (9.3-17.3); White Blood Count 3.9 T/CUMM (4-12)
[2020-01-16 06:09] LABS: Risk Ratio 5.08
[2020-01-16] MEDS: RANOLAZINE 500 MG TABLET PO SCH ×2 (09:47→22:10)
[2020-01-16] MEDS: LOSARTAN 50 MG TABLET PO SCH (09:48)
[2020-01-16] MEDS: levETIRAcetam 500 MG TABLET PO SCH ×2 (09:48→22:10)
[2020-01-16] MEDS: amLODIPine 5 MG TABLET PO SCH (09:48)
[2020-01-16] MEDS: ISOSORBIDE MONONITRATE 60 MG TABLET PO SCH (09:48)
[2020-01-16] MEDS: CLOPIDOGREL 75 MG TABLET PO SCH (09:49)
[2020-01-16] MEDS: GABAPENTIN 300 MG CAPSULE PO SCH ×2 (09:49→22:10)
[2020-01-16] MEDS: INSULIN LISPRO 100 UNIT/ML SUBCUT SCH ×4 (09:54→22:11)
[2020-01-16 10:30] LABS: Troponin I 0.098 NG/ML (0.00-0.045)
[2020-01-16] MEDS: DICLOFENAC SODIUM 50 MG TABLET PO SCH ×2 (16:02→22:10)
[2020-01-16] MEDS: MORPHINE 4 MG/1 ML VIAL IV PRN (19:48)
[2020-01-16] MEDS: ASPIRIN CHEW 81 MG TABLET PO SCH (22:10)
[2020-01-16] MEDS: risperiDONE 1 MG TABLET PO SCH (22:11)
[2020-01-16] MEDS: INSULIN GLARGINE 100 UNIT/ML SUBCUT SCH (22:11)
[2020-01-16] MEDS: ATORVASTATIN 40 MG TABLET PO SCH (22:12)
[2020-01-16] MEDS: ENOXAPARIN 40 MG/0.4 ML SYRINGE SUBCUT SCH (23:42)
[2020-01-17 03:29] LABS: Basophils % 0.6 % (0.0-0.8); Eosinophils # 0.1 10*3/uL (0.0-0.87); Eosinophils % 3.6 % (0.00-10.9); Hematocrit 32.2 VOL% (35.7-47.0); Hemoglobin 10.1 GM/DL (12.0-16.0); Immature Granulocytes % 0.6 %; Immature Granulocytes Absolute 0.02 #; Lymphocytes # 1.1 10*3/uL (1.4-4.0); Lymphocytes % 30.2 % (21.3-54.2); Mean Corpuscular HGB Conc 31.4 GM/DL (32-36); Mean Corpuscular Volume 81.5 FL (87-102); Mean Platelet Volume 11.2 FL (9.6-12.0); Monocytes % 10.1 % (1.7-12.7); Neutrophils % 54.9 % (38.7-73.9); Platelet Count 116 T/CUMM (130-400); Red Blood Count 3.95 MC/CUMM (3.8-5.5); Red Cell Distribution Width 14.7 % (9.3-17.3); White Blood Count 3.6 T/CUMM (4-12)
[2020-01-17 03:47] LABS: Calcium 8.6 MG/DL (8.5-10.1); Osmolality,Calculated 287.8 MOS/KG (273-304)
[2020-01-17] MEDS: NITROGLYCERIN SL 0.4 MG TABLET SL PRN ×2 (07:55→08:01)
[2020-01-17] MEDS: DICLOFENAC SODIUM 50 MG TABLET PO SCH ×2 (08:20→22:03)
[2020-01-17] MEDS: amLODIPine 5 MG TABLET PO SCH (08:21)
[2020-01-17] MEDS: RANOLAZINE 500 MG TABLET PO SCH ×2 (08:21→22:03)
[2020-01-17] MEDS: CLOPIDOGREL 75 MG TABLET PO SCH (08:21)
[2020-01-17] MEDS: GABAPENTIN 300 MG CAPSULE PO SCH ×2 (08:21→22:04)
[2020-01-17] MEDS: ISOSORBIDE MONONITRATE 60 MG TABLET PO SCH (08:22)
[2020-01-17] MEDS: LOSARTAN 50 MG TABLET PO SCH (08:22)
[2020-01-17] MEDS: levETIRAcetam 500 MG TABLET PO SCH ×2 (10:11→22:03)
[2020-01-17] MEDS: INSULIN LISPRO 100 UNIT/ML SUBCUT SCH ×4 (10:11→22:13)
[2020-01-17] MEDS: MORPHINE 4 MG/1 ML VIAL IV PRN ×3 (11:31→22:04)
[2020-01-17 15:58] LABS: Apearance,Urine CLEAR (Clear); Bacteria,Urine Occasional /HPF (Few); Bilirubin,Urine Negative (Negative); Blood, Urine Negative (Negative); Glucose,Urine (UA) Negative (Negative); Ketones,Urine Negative (Negative); Mucus,Urine Occasional /LPF (Occasional); Nitrite,Urine Negative (Negative); Protein,Urine Negative; RBC,Urine 2 /HPF (0-4); Squamous Epithelial Cell,Urine Occasional /HPF (0-10); Urine Color Yellow (Yellow); Urine Specific Gravity 1.025 (1.001-1.035); Urine Urobilinogen < 2.0 EU/DL (0.2-1.0); WBC,Urine 1 /HPF (0-6)
[2020-01-17] MEDS: ATORVASTATIN 40 MG TABLET PO SCH (22:03)
[2020-01-17] MEDS: ASPIRIN CHEW 81 MG TABLET PO SCH (22:03)
[2020-01-17] MEDS: risperiDONE 1 MG TABLET PO SCH (22:04)
[2020-01-17] MEDS: INSULIN GLARGINE 100 UNIT/ML SUBCUT SCH (22:04)
[2020-01-17] MEDS: ENOXAPARIN 40 MG/0.4 ML SYRINGE SUBCUT SCH (22:04)
[2020-01-18] MEDS: DOCUSATE SODIUM 100 MG CAPSULE PO PRN ×2 (00:37→13:24)
[2020-01-18 06:50] LABS: Calcium 8.9 MG/DL (8.5-10.1); Osmolality,Calculated 287.5 MOS/KG (273-304)
[2020-01-18 08:50] LABS: Basophils % 0.3 % (0.0-0.8); Eosinophils # 0.1 10*3/uL (0.0-0.87); Eosinophils % 3.2 % (0.00-10.9); Hematocrit 36.6 VOL% (35.7-47.0); Hemoglobin 11.4 GM/DL (12.0-16.0); Immature Granulocytes % 0.8 %; Immature Granulocytes Absolute 0.03 #; Lymphocytes # 1.3 10*3/uL (1.4-4.0); Lymphocytes % 33.7 % (21.3-54.2); Mean Corpuscular HGB Conc 31.1 GM/DL (32-36); Mean Corpuscular Volume 81.2 FL (87-102); Mean Platelet Volume 11.5 FL (9.6-12.0); Monocytes % 10.7 % (1.7-12.7); Neutrophils % 51.3 % (38.7-73.9); Red Blood Count 4.51 MC/CUMM (3.8-5.5); Red Cell Distribution Width 14.8 % (9.3-17.3); White Blood Count 3.7 T/CUMM (4-12)
[2020-01-18 08:52] LABS: Platelet Count 109 T/CUMM (130-400)
[2020-01-18 08:54] LABS: PT Patient Result 10.7 SECS (9.8-11.9); Partial Thromboplastin Time 27.1 SECS (23.9-33.8)
[2020-01-18 09:03] LABS: Alanine Aminotransferase 35 U/L (13-56); Albumin 3.8 G/DL (3.4-5.0); Alkaline Phosphatase 112 U/L (45-117); Aspartate Amino Transferase 36 U/L (0-37); Bilirubin,Total < 0.39 MG/DL (0.2-1.0); Blood Urea Nitrogen 24 MG/DL (7-18); Calcium 9.4 MG/DL (8.5-10.1); Estimated Glom Filtration Rate 78 ML/MIN; Glucose 148 MG/DL (74-106); Osmolality,Calculated 274.2 MOS/KG (273-304); Total Protein 7.9 G/DL (6.4-8.3)
[2020-01-18] MEDS ORDERED: ATORVASTATIN 80 MG TABLET PO SCH (09:33)
[2020-01-18 09:39] LABS: Hypochromasia 1+; Microcytosis Slight; Platelet Estimate Decreased
[2020-01-18] MEDS ORDERED: LORazepam 2 MG/1 ML VIAL IV ONE (09:49)
[2020-01-18] MEDS ORDERED: LORazepam 2 MG/1 ML VIAL ONE (09:51)
[2020-01-18] MEDS: ONDANSETRON 4 MG/2 ML VIAL IV PRN ×2 (10:59→16:15)
[2020-01-18] MEDS: ISOSORBIDE MONONITRATE 60 MG TABLET PO SCH (13:23)
[2020-01-18] MEDS: GABAPENTIN 300 MG CAPSULE PO SCH ×2 (13:23→22:00)
[2020-01-18] MEDS: levETIRAcetam 500 MG TABLET PO SCH ×2 (13:23→22:00)
[2020-01-18] MEDS: RANOLAZINE 500 MG TABLET PO SCH ×2 (13:23→22:00)
[2020-01-18] MEDS: CLOPIDOGREL 75 MG TABLET PO SCH (13:24)
[2020-01-18] MEDS: LOSARTAN 50 MG TABLET PO SCH (13:24)
[2020-01-18] MEDS: amLODIPine 5 MG TABLET PO SCH (13:24)
[2020-01-18] MEDS: DICLOFENAC SODIUM 50 MG TABLET PO SCH ×2 (13:24→22:27)
[2020-01-18] MEDS: INSULIN LISPRO 100 UNIT/ML SUBCUT SCH ×4 (13:41→22:27)
[2020-01-18] MEDS: SODIUM CHLORIDE 0.9% 1,000 ML IV SCH (13:42)
[2020-01-18] MEDS: ACETAMINOPHEN 325 MG TABLET PO PRN (21:59)
[2020-01-18] MEDS: ASPIRIN CHEW 81 MG TABLET PO SCH (22:00)
[2020-01-18] MEDS: INSULIN GLARGINE 100 UNIT/ML SUBCUT SCH (22:00)
[2020-01-18] MEDS: risperiDONE 1 MG TABLET PO SCH (22:00)
[2020-01-19] MEDS: SODIUM CHLORIDE 0.9% 1,000 ML IV SCH (10:53)
[2020-01-19] MEDS: LOSARTAN 50 MG TABLET PO SCH (11:12)
[2020-01-19] MEDS: RANOLAZINE 500 MG TABLET PO SCH (11:14)
[2020-01-19] MEDS: levETIRAcetam 500 MG TABLET PO SCH (11:14)
[2020-01-19] MEDS: DICLOFENAC SODIUM 50 MG TABLET PO SCH (11:15)
[2020-01-19] MEDS: ISOSORBIDE MONONITRATE 60 MG TABLET PO SCH (11:15)
[2020-01-19] MEDS: GABAPENTIN 300 MG CAPSULE PO SCH (11:15)
[2020-01-19] MEDS: amLODIPine 5 MG TABLET PO SCH (11:16)
[2020-01-19] MEDS: CLOPIDOGREL 75 MG TABLET PO SCH (11:16)
[2020-01-19] MEDS: INSULIN LISPRO 100 UNIT/ML SUBCUT SCH ×2 (11:17→13:02)
[2020-01-19 11:49] VITALS: BP 150/70
== END 2020-01-19 12:35 | disposition home or self-care (01) | DRG 313 ==
LOC: N.ED 18:52 → SUATTDRO 22:30 → N.EDINP 22:30 → N.TELES 01-15 00:12
PROVIDERS: ADMIT Emergency Medicine; ATTEND Internal Medicine

== ENCOUNTER 2020-01-29 14:14 | Observation (INO) ==
[2020-01-29] MEDS ORDERED: ASPIRIN 325 MG TABLET PO STA (14:35)
[2020-01-29 14:46] LABS: Basophils % 0.5 % (0.0-0.8); Eosinophils # 0.1 10*3/uL (0.0-0.87); Eosinophils % 2.4 % (0.00-10.9); Hematocrit 25.4 VOL% (35.7-47.0); Immature Granulocytes % 0.8 %; Immature Granulocytes Absolute 0.03 #; Lymphocytes # 0.9 10*3/uL (1.4-4.0); Lymphocytes % 24.9 % (21.3-54.2); Mean Corpuscular HGB Conc 31.5 GM/DL (32-36); Mean Corpuscular Volume 82.7 FL (87-102); Mean Platelet Volume 11.4 FL (9.6-12.0); Monocytes % 9.5 % (1.7-12.7); Neutrophils % 61.9 % (38.7-73.9); Platelet Count 154 T/CUMM (130-400); Red Blood Count 3.07 MC/CUMM (3.8-5.5); Red Cell Distribution Width 15.6 % (9.3-17.3); White Blood Count 3.7 T/CUMM (4-12)
[2020-01-29 14:56] LABS: PT Patient Result 10.5 SECS (9.8-11.9); Partial Thromboplastin Time 23.1 SECS (23.9-33.8)
[2020-01-29 15:12] LABS: Albumin 3.8 G/DL (3.4-5.0); Bilirubin,Total 0.4 MG/DL (0.2-1.0); Calcium 8.5 MG/DL (8.5-10.1); Osmolality,Calculated 285.5 MOS/KG (273-304)
[2020-01-29] MEDS ORDERED: ASPIRIN EC 81 MG TABLET PO STA (15:29)
[2020-01-29] MEDS ORDERED: NITROGLYCERIN SL 0.4 MG TABLET SL STA (15:37)
[2020-01-29] MEDS ORDERED: NITROGLYCERIN SL 0.4 MG TABLET SL ONE (15:38)
[2020-01-29] MEDS ORDERED: FUROSEMIDE 40 MG/4 ML VIAL IV STA (16:38)
[2020-01-29] MEDS ORDERED: DEXTROSE 50% 25 GM/50 ML VIAL IV PRN (16:40)
[2020-01-29] MEDS ORDERED: ZALEPLON 5 MG CAPSULE PO PRN (16:40)
[2020-01-29] MEDS ORDERED: PROMETHAZINE 25 MG/1 ML VIAL IM PRN (16:40)
[2020-01-29] MEDS ORDERED: LACTULOSE 20 GM/30 ML UDCUP PO PRN (16:40)
[2020-01-29] MEDS ORDERED: diphenhydrAMINE CAP 25 MG CAPSULE PO PRN (16:40)
[2020-01-29] MEDS ORDERED: ALUMINUM/MAGNES/SIMETH MAX STR 30 ML UDCUP PO PRN (16:40)
[2020-01-29] MEDS ORDERED: GLUCAGON 1 MG VIAL IM PRN (16:40)
[2020-01-29] MEDS ORDERED: BISACODYL 5 MG TABLET PO PRN (16:40)
[2020-01-29] MEDS ORDERED: ACETAMINOPHEN 325 MG TABLET PO PRN (16:40)
[2020-01-29] MEDS ORDERED: guaiFENesin/DM ER 600-30 MG TABLET PO PRN (16:40)
[2020-01-29] MEDS ORDERED: hydrALAZINE 20 MG/1 ML VIAL IV PRN (16:40)
[2020-01-29] MEDS ORDERED: CALCIUM CARBONATE CHEW 500 MG TABLET PO PRN (16:40)
[2020-01-29] MEDS ORDERED: SIMETHICONE CHEW 125 MG TABLET PO PRN (16:40)
[2020-01-29] MEDS ORDERED: DOCUSATE SODIUM 100 MG CAPSULE PO PRN (16:40)
[2020-01-29 16:43] LABS: Ferritin 12.9 ng/ml (8-252)
[2020-01-29] MEDS: MORPHINE 4 MG/1 ML VIAL IV PRN (20:43)
[2020-01-29] MEDS: ENOXAPARIN 40 MG/0.4 ML SYRINGE SUBCUT SCH (20:45)
[2020-01-29] MEDS: INSULIN REGULAR 100 UNIT/ML SUBCUT SCH (20:45)
[2020-01-30] MEDS: MORPHINE 4 MG/1 ML VIAL IV PRN ×3 (00:13→21:00)
[2020-01-30 05:32] LABS: Basophils % 0.6 % (0.0-0.8); Eosinophils # 0.1 10*3/uL (0.0-0.87); Eosinophils % 3.2 % (0.00-10.9); Hematocrit 25.8 VOL% (35.7-47.0); Immature Granulocytes % 1.1 %; Immature Granulocytes Absolute 0.04 #; Lymphocytes # 1.2 10*3/uL (1.4-4.0); Lymphocytes % 34.5 % (21.3-54.2); Mean Corpuscular Volume 81.9 FL (87-102); Mean Platelet Volume 11.2 FL (9.6-12.0); Monocytes % 14.7 % (1.7-12.7); Neutrophils % 45.9 % (38.7-73.9); Platelet Count 130 T/CUMM (130-400); Red Blood Count 3.15 MC/CUMM (3.8-5.5); Red Cell Distribution Width 15.4 % (9.3-17.3); White Blood Count 3.5 T/CUMM (4-12)
[2020-01-30 05:51] LABS: Alanine Aminotransferase 25 U/L (13-56); Albumin 3.5 G/DL (3.4-5.0); Alkaline Phosphatase 103 U/L (45-117); Aspartate Amino Transferase 15 U/L (0-37); Blood Urea Nitrogen 15 MG/DL (7-18); Calcium 8.7 MG/DL (8.5-10.1); Estimated Glom Filtration Rate 83 ML/MIN; Ferritin 12.1 ng/ml (8-252); Glucose 140 MG/DL (74-106); Osmolality,Calculated 279.5 MOS/KG (273-304)
[2020-01-30 05:57] LABS: Hypochromasia 1+; Microcytosis 1+
[2020-01-30 05:58] LABS: Platelet Estimate Adequate
[2020-01-30 07:09] LABS: Sedimentation Rate-Westergren 40 MM/HR (0-30)
[2020-01-30] MEDS ORDERED: FUROSEMIDE 40 MG/4 ML VIAL IV SCH (08:00)
[2020-01-30] MEDS ORDERED: POTASSIUM CHLORIDE 20 MEQ/15 ML UDCUP PO ONE (08:24)
[2020-01-30] MEDS: ONDANSETRON 4 MG/2 ML VIAL IV PRN ×2 (08:55→17:22)
[2020-01-30] MEDS ORDERED: PANTOPRAZOLE 40 MG TABLET PO SCH (09:00)
[2020-01-30] MEDS: INSULIN REGULAR 100 UNIT/ML SUBCUT SCH ×4 (09:04→20:58)
[2020-01-30] MEDS ORDERED: NITROGLYCERIN SL 0.4 MG TABLET SL PRN (09:09)
[2020-01-30] MEDS ORDERED: traMADol 50 MG TABLET PO PRN (09:09)
[2020-01-30] MEDS ORDERED: RANOLAZINE 500 MG TABLET PO SCH (09:30)
[2020-01-30] MEDS: ISOSORBIDE MONONITRATE 60 MG TABLET PO SCH (10:20)
[2020-01-30] MEDS: PANTOPRAZOLE 40 MG TABLET PO SCH (10:20)
[2020-01-30] MEDS: LOSARTAN 50 MG TABLET PO SCH (10:20)
[2020-01-30] MEDS: amLODIPine 5 MG TABLET PO SCH (10:20)
[2020-01-30] MEDS: SERTRALINE 100 MG TABLET PO SCH (10:20)
[2020-01-30] MEDS: CLOPIDOGREL 75 MG TABLET PO SCH (10:20)
[2020-01-30 11:51] LABS: % Iron Saturation 4.9 % (18-50)
[2020-01-30] MEDS: FERROUS SULFATE 325 MG TABLET PO SCH ×2 (13:14→20:59)
[2020-01-30] MEDS: SPIRONOLACTONE 25 MG TABLET PO SCH (13:15)
[2020-01-30] MEDS: ENOXAPARIN 40 MG/0.4 ML SYRINGE SUBCUT SCH (20:58)
[2020-01-30] MEDS: RANOLAZINE 500 MG TABLET PO SCH (20:59)
[2020-01-30] MEDS ORDERED: ASPIRIN CHEW 81 MG TABLET PO SCH (21:00)
[2020-01-30] MEDS ORDERED: ROSUVASTATIN 20 MG TABLET PO SCH (21:00)
[2020-01-31] MEDS: MORPHINE 4 MG/1 ML VIAL IV PRN ×2 (00:44→04:27)
[2020-01-31] MEDS: ONDANSETRON 4 MG/2 ML VIAL IV PRN ×2 (00:45→09:26)
[2020-01-31 06:03] LABS: Basophils % 0.2 % (0.0-0.8); Eosinophils # 0.1 10*3/uL (0.0-0.87); Hemoglobin 8.6 GM/DL (12.0-16.0); Immature Granulocytes % 0.5 %; Immature Granulocytes Absolute 0.02 #; Mean Corpuscular HGB Conc 31.9 GM/DL (32-36); Mean Corpuscular Volume 79.9 FL (87-102); Mean Platelet Volume 11.2 FL (9.6-12.0); Monocytes % 13.6 % (1.7-12.7); Neutrophils % 58.7 % (38.7-73.9); Platelet Count 151 T/CUMM (130-400); Red Blood Count 3.38 MC/CUMM (3.8-5.5); Red Cell Distribution Width 15.2 % (9.3-17.3)
[2020-01-31 06:24] LABS: Alanine Aminotransferase 25 U/L (13-56); Albumin 3.5 G/DL (3.4-5.0); Alkaline Phosphatase 88 U/L (45-117); Aspartate Amino Transferase 18 U/L (0-37); Blood Urea Nitrogen 17 MG/DL (7-18); Calcium 8.9 MG/DL (8.5-10.1); Estimated Glom Filtration Rate 84 ML/MIN; Ferritin 15.5 ng/ml (8-252); Glucose 143 MG/DL (74-106)
[2020-01-31 07:56] LABS: Sedimentation Rate-Westergren 40 MM/HR (0-30)
[2020-01-31] MEDS ORDERED: levETIRAcetam 500 MG TABLET PO SCH (09:00)
[2020-01-31] MEDS: CLOPIDOGREL 75 MG TABLET PO SCH (09:27)
[2020-01-31] MEDS: SERTRALINE 100 MG TABLET PO SCH (09:27)
[2020-01-31] MEDS: FERROUS SULFATE 325 MG TABLET PO SCH (09:27)
[2020-01-31] MEDS: ISOSORBIDE MONONITRATE 60 MG TABLET PO SCH (09:28)
[2020-01-31] MEDS: amLODIPine 5 MG TABLET PO SCH (09:28)
[2020-01-31] MEDS: LOSARTAN 50 MG TABLET PO SCH (09:28)
[2020-01-31] MEDS: SPIRONOLACTONE 25 MG TABLET PO SCH (09:28)
[2020-01-31] MEDS: PANTOPRAZOLE 40 MG TABLET PO SCH (09:28)
[2020-01-31] MEDS: RANOLAZINE 500 MG TABLET PO SCH (09:28)
[2020-01-31] MEDS: INSULIN REGULAR 100 UNIT/ML SUBCUT SCH ×2 (09:29→12:42)
[2020-01-31 12:10] VITALS: BP 131/64
== END 2020-01-31 12:50 | disposition swing bed (61) ==
LOC: SUATTDRO → N.ED 14:14 → N.EDINP 14:14 → SUATTDRO 16:40 → N.TELEN 18:23
PROVIDERS: ADMIT Hospitalist; ATTEND Internal Medicine

== ENCOUNTER 2020-02-25 13:52 | Observation (INO) ==
[2020-02-25] MEDS ORDERED: ASPIRIN 325 MG TABLET PO STA (15:26)
[2020-02-25 15:50] LABS: Basophils % 0.3 % (0.0-0.8); Eosinophils # 0.1 10*3/uL (0.0-0.87); Eosinophils % 1.6 % (0.00-10.9); Hematocrit 32.3 VOL% (35.7-47.0); Hemoglobin 9.9 GM/DL (12.0-16.0); Immature Granulocytes % 0.8 %; Immature Granulocytes Absolute 0.03 #; Lymphocytes # 1.1 10*3/uL (1.4-4.0); Lymphocytes % 27.9 % (21.3-54.2); Mean Corpuscular HGB Conc 30.7 GM/DL (32-36); Monocytes % 10.9 % (1.7-12.7); Neutrophils % 58.5 % (38.7-73.9); Platelet Count 153 T/CUMM (130-400); Red Blood Count 4.14 MC/CUMM (3.8-5.5); Red Cell Distribution Width 15.5 % (9.3-17.3); White Blood Count 3.8 T/CUMM (4-12)
[2020-02-25] MEDS: NITROGLYCERIN SL 0.4 MG TABLET SL PRN ×3 (16:02→19:19)
[2020-02-25 16:10] LABS: Albumin 4.2 G/DL (3.4-5.0); Bilirubin,Total 0.5 MG/DL (0.2-1.0); Calcium 9.4 MG/DL (8.5-10.1); Osmolality,Calculated 282.7 MOS/KG (273-304); Total Protein 8.1 G/DL (6.4-8.3)
[2020-02-25] MEDS ORDERED: ONDANSETRON 4 MG/2 ML VIAL ONE (16:31)
[2020-02-25] MEDS ORDERED: ONDANSETRON 4 MG/2 ML VIAL IV STA (16:39)
[2020-02-25 17:24] LABS: Bilirubin,Urine Negative (Negative); Blood, Urine Negative (Negative); Glucose,Urine (UA) >=500 mg/dL (Negative); Ketones,Urine Negative (Negative); Nitrite,Urine Negative (Negative); Protein,Urine Negative; RBC,Urine 2 /HPF (0-4); Squamous Epithelial Cell,Urine Occasional /HPF (0-10); Urine Appearance CLEAR (Clear); Urine Color Yellow (Yellow); Urine Specific Gravity 1.021 (1.001-1.035); Urine Urobilinogen < 2.0 EU/DL (0.2-1.0); WBC,Urine 1 /HPF (0-6)
[2020-02-25] MEDS ORDERED: NITROGLYCERIN SL 0.4 MG TABLET SL PRN (18:31)
[2020-02-25] MEDS ORDERED: ALBUTEROL 2.5 MG/3 ML NEB RESP TX PRN (20:00)
[2020-02-25] MEDS ORDERED: DOCUSATE SODIUM 100 MG CAPSULE PO PRN (20:00)
[2020-02-25] MEDS ORDERED: GLUCAGON 1 MG VIAL IM PRN (20:00)
[2020-02-25] MEDS ORDERED: ACETAMINOPHEN 325 MG TABLET PO PRN (20:00)
[2020-02-25] MEDS ORDERED: PROMETHAZINE 25 MG TABLET PO PRN (20:00)
[2020-02-25] MEDS ORDERED: DEXTROSE 50% 25 GM/50 ML VIAL IV PRN (20:00)
[2020-02-25] MEDS: levETIRAcetam 500 MG TABLET PO SCH (22:37)
[2020-02-25] MEDS: FERROUS SULFATE 325 MG TABLET PO SCH (22:37)
[2020-02-25] MEDS: RANOLAZINE 500 MG TABLET PO SCH (22:38)
[2020-02-25] MEDS: tiZANidine 4 MG TABLET PO SCH (22:38)
[2020-02-25] MEDS: risperiDONE 1 MG TABLET PO SCH (22:38)
[2020-02-25] MEDS: gemfibroziL 600 MG TABLET PO SCH (22:38)
[2020-02-25] MEDS: INSULIN LISPRO 100 UNIT/ML SUBCUT SCH (22:39)
[2020-02-26] MEDS: ENOXAPARIN 80 MG/0.8 ML SYRINGE SUBCUT SCH ×3 (02:29→13:45)
[2020-02-26 04:55] LABS: Basophils % 0.3 % (0.0-0.8); Eosinophils # 0.1 10*3/uL (0.0-0.87); Eosinophils % 2.2 % (0.00-10.9); Hematocrit 27.8 VOL% (35.7-47.0); Hemoglobin 8.4 GM/DL (12.0-16.0); Immature Granulocytes % 0.3 %; Immature Granulocytes Absolute 0.01 #; Lymphocytes # 1.1 10*3/uL (1.4-4.0); Lymphocytes % 32.5 % (21.3-54.2); Mean Corpuscular HGB Conc 30.2 GM/DL (32-36); Mean Corpuscular Volume 78.8 FL (87-102); Mean Platelet Volume 12.3 FL (9.6-12.0); Monocytes % 11.1 % (1.7-12.7); Neutrophils % 53.6 % (38.7-73.9); Platelet Count 128 T/CUMM (130-400); Red Blood Count 3.53 MC/CUMM (3.8-5.5); Red Cell Distribution Width 15.5 % (9.3-17.3); White Blood Count 3.2 T/CUMM (4-12)
[2020-02-26 05:15] LABS: Calcium 8.8 MG/DL (8.5-10.1); Osmolality,Calculated 286.4 MOS/KG (273-304)
[2020-02-26] MEDS ORDERED: ASPIRIN EC 325 MG TABLET PO SCH (09:00)
[2020-02-26] MEDS: RANOLAZINE 500 MG TABLET PO SCH ×2 (09:27→21:30)
[2020-02-26] MEDS: levETIRAcetam 500 MG TABLET PO SCH ×2 (09:28→21:30)
[2020-02-26] MEDS: INSULIN LISPRO 100 UNIT/ML SUBCUT SCH ×4 (09:28→23:02)
[2020-02-26] MEDS: FERROUS SULFATE 325 MG TABLET PO SCH ×2 (09:28→21:30)
[2020-02-26] MEDS: gemfibroziL 600 MG TABLET PO SCH ×2 (09:28→21:30)
[2020-02-26] MEDS: ISOSORBIDE MONONITRATE 60 MG TABLET PO SCH (09:28)
[2020-02-26] MEDS: amLODIPine 5 MG TABLET PO SCH (09:28)
[2020-02-26] MEDS: CLOPIDOGREL 75 MG TABLET PO SCH (09:28)
[2020-02-26] MEDS: PANTOPRAZOLE 40 MG TABLET PO SCH (09:28)
[2020-02-26] MEDS: MORPHINE 4 MG/1 ML VIAL IV PRN ×2 (09:42→17:44)
[2020-02-26] MEDS: traMADol 50 MG TABLET PO SCH ×2 (09:47→21:30)
[2020-02-26] MEDS: GABAPENTIN 300 MG CAPSULE PO SCH ×3 (09:47→21:30)
[2020-02-26] MEDS ORDERED: ACETAMINOPHEN 325 MG TABLET PO PRN (11:08)
[2020-02-26] MEDS: ONDANSETRON 4 MG/2 ML VIAL IV PRN ×2 (13:24→18:25)
[2020-02-26] MEDS: risperiDONE 1 MG TABLET PO SCH (21:30)
[2020-02-26] MEDS: tiZANidine 4 MG TABLET PO SCH (21:32)
[2020-02-27] MEDS: ENOXAPARIN 80 MG/0.8 ML SYRINGE SUBCUT SCH ×2 (02:06→13:23)
[2020-02-27] MEDS ORDERED: glyBURIDE 2.5 MG TABLET PO SCH (08:00)
[2020-02-27] MEDS: levETIRAcetam 500 MG TABLET PO SCH ×2 (08:56→21:13)
[2020-02-27] MEDS: CLOPIDOGREL 75 MG TABLET PO SCH (08:56)
[2020-02-27] MEDS: amLODIPine 5 MG TABLET PO SCH (08:56)
[2020-02-27] MEDS: GABAPENTIN 300 MG CAPSULE PO SCH ×3 (08:56→21:13)
[2020-02-27] MEDS: RANOLAZINE 500 MG TABLET PO SCH ×2 (08:56→21:12)
[2020-02-27] MEDS: ISOSORBIDE MONONITRATE 60 MG TABLET PO SCH (08:57)
[2020-02-27] MEDS: gemfibroziL 600 MG TABLET PO SCH ×2 (08:57→21:13)
[2020-02-27] MEDS: PANTOPRAZOLE 40 MG TABLET PO SCH (08:57)
[2020-02-27] MEDS: FERROUS SULFATE 325 MG TABLET PO SCH ×2 (08:57→21:13)
[2020-02-27] MEDS: INSULIN LISPRO 100 UNIT/ML SUBCUT SCH ×4 (08:57→21:14)
[2020-02-27] MEDS: traMADol 50 MG TABLET PO SCH ×2 (09:04→21:13)
[2020-02-27] MEDS: MORPHINE 4 MG/1 ML VIAL IV PRN ×2 (11:05→18:36)
[2020-02-27] MEDS: METOPROLOL SUCCINATE XL 25 MG TABLET PO SCH (12:19)
[2020-02-27] MEDS: ONDANSETRON 4 MG/2 ML VIAL IV PRN (16:07)
[2020-02-27] MEDS: ESCITALOPRAM 10 MG TABLET PO SCH (21:12)
[2020-02-27] MEDS: risperiDONE 1 MG TABLET PO SCH (21:12)
[2020-02-27] MEDS: ASPIRIN CHEW 81 MG TABLET PO SCH (21:13)
[2020-02-27] MEDS: tiZANidine 4 MG TABLET PO SCH (21:13)
[2020-02-28] MEDS: ENOXAPARIN 80 MG/0.8 ML SYRINGE SUBCUT SCH ×2 (01:27→13:47)
[2020-02-28] MEDS: ONDANSETRON 4 MG/2 ML VIAL IV PRN ×2 (03:40→13:46)
[2020-02-28 06:05] LABS: Basophils % 0.6 % (0.0-0.8); Eosinophils # 0.1 10*3/uL (0.0-0.87); Eosinophils % 3.5 % (0.00-10.9); Hemoglobin 8.5 GM/DL (12.0-16.0); Immature Granulocytes % 1.2 %; Immature Granulocytes Absolute 0.04 #; Lymphocytes % 29.4 % (21.3-54.2); Mean Corpuscular HGB Conc 30.4 GM/DL (32-36); Mean Platelet Volume 11.8 FL (9.6-12.0); Monocytes % 14.7 % (1.7-12.7); Neutrophils % 50.6 % (38.7-73.9); Platelet Count 122 T/CUMM (130-400); Red Cell Distribution Width 16.4 % (9.3-17.3); White Blood Count 3.4 T/CUMM (4-12)
[2020-02-28 06:34] LABS: Calcium 8.6 MG/DL (8.5-10.1); Osmolality,Calculated 282.1 MOS/KG (273-304)
[2020-02-28] MEDS ORDERED: POTASSIUM CHLORIDE 20 MEQ TABLET PO ONE ×2 (06:42→15:00)
[2020-02-28] MEDS: traMADol 50 MG TABLET PO SCH ×2 (09:03→21:16)
[2020-02-28] MEDS: METOPROLOL SUCCINATE XL 25 MG TABLET PO SCH (09:03)
[2020-02-28] MEDS: levETIRAcetam 500 MG TABLET PO SCH ×2 (09:03→21:16)
[2020-02-28] MEDS: gemfibroziL 600 MG TABLET PO SCH ×2 (09:03→21:16)
[2020-02-28] MEDS: CLOPIDOGREL 75 MG TABLET PO SCH (09:03)
[2020-02-28] MEDS: SPIRONOLACTONE 25 MG TABLET PO SCH (09:04)
[2020-02-28] MEDS: amLODIPine 5 MG TABLET PO SCH (09:04)
[2020-02-28] MEDS: PANTOPRAZOLE 40 MG TABLET PO SCH (09:04)
[2020-02-28] MEDS: ISOSORBIDE MONONITRATE 60 MG TABLET PO SCH (09:04)
[2020-02-28] MEDS: INSULIN LISPRO 100 UNIT/ML SUBCUT SCH ×4 (09:04→22:06)
[2020-02-28] MEDS: FERROUS SULFATE 325 MG TABLET PO SCH ×2 (09:04→21:16)
[2020-02-28] MEDS: RANOLAZINE 500 MG TABLET PO SCH ×2 (09:04→21:16)
[2020-02-28] MEDS: GABAPENTIN 300 MG CAPSULE PO SCH ×3 (09:07→21:17)
[2020-02-28] MEDS: MORPHINE 4 MG/1 ML VIAL IV PRN ×2 (11:35→17:57)
[2020-02-28] MEDS: risperiDONE 1 MG TABLET PO SCH (21:16)
[2020-02-28] MEDS: tiZANidine 4 MG TABLET PO SCH (21:16)
[2020-02-28] MEDS: ASPIRIN CHEW 81 MG TABLET PO SCH (21:16)
[2020-02-28] MEDS: ESCITALOPRAM 10 MG TABLET PO SCH (21:16)
[2020-02-29] MEDS: ENOXAPARIN 80 MG/0.8 ML SYRINGE SUBCUT SCH ×2 (00:06→13:39)
[2020-02-29] MEDS: MORPHINE 4 MG/1 ML VIAL IV PRN (00:13)
[2020-02-29 05:31] LABS: Basophils % 0.8 % (0.0-0.8); Eosinophils # 0.2 10*3/uL (0.0-0.87); Eosinophils % 4.1 % (0.00-10.9); Hematocrit 30.9 VOL% (35.7-47.0); Hemoglobin 9.2 GM/DL (12.0-16.0); Immature Granulocytes % 1.7 %; Immature Granulocytes Absolute 0.06 #; Lymphocytes # 1.1 10*3/uL (1.4-4.0); Lymphocytes % 29.6 % (21.3-54.2); Mean Corpuscular HGB Conc 29.8 GM/DL (32-36); Mean Corpuscular Volume 81.1 FL (87-102); Mean Platelet Volume 11.5 FL (9.6-12.0); Monocytes % 14.4 % (1.7-12.7); NRBC # 0.02 10*3/uL; Neutrophils % 49.4 % (38.7-73.9); Platelet Count 119 T/CUMM (130-400); Red Blood Count 3.81 MC/CUMM (3.8-5.5); Red Cell Distribution Width 17.2 % (9.3-17.3); White Blood Count 3.6 T/CUMM (4-12)
[2020-02-29 05:50] LABS: Calcium 9.2 MG/DL (8.5-10.1)
[2020-02-29] MEDS: SPIRONOLACTONE 25 MG TABLET PO SCH (08:25)
[2020-02-29] MEDS: gemfibroziL 600 MG TABLET PO SCH (08:25)
[2020-02-29] MEDS: GABAPENTIN 300 MG CAPSULE PO SCH ×2 (08:25→15:23)
[2020-02-29] MEDS: traMADol 50 MG TABLET PO SCH (08:25)
[2020-02-29] MEDS: CLOPIDOGREL 75 MG TABLET PO SCH (08:25)
[2020-02-29] MEDS: RANOLAZINE 500 MG TABLET PO SCH (08:26)
[2020-02-29] MEDS: METOPROLOL SUCCINATE XL 25 MG TABLET PO SCH (08:26)
[2020-02-29] MEDS: PANTOPRAZOLE 40 MG TABLET PO SCH (08:26)
[2020-02-29] MEDS: ISOSORBIDE MONONITRATE 60 MG TABLET PO SCH (08:27)
[2020-02-29] MEDS: levETIRAcetam 500 MG TABLET PO SCH (08:27)
[2020-02-29] MEDS: FERROUS SULFATE 325 MG TABLET PO SCH (08:28)
[2020-02-29] MEDS: amLODIPine 5 MG TABLET PO SCH (08:30)
[2020-02-29] MEDS: INSULIN LISPRO 100 UNIT/ML SUBCUT SCH ×3 (08:54→16:23)
[2020-02-29] MEDS: NITROGLYCERIN SL 0.4 MG TABLET SL PRN ×2 (12:09→13:39)
[2020-02-29] MEDS ORDERED: ALUMINUM/MAGNES/SIMETH MAX STR 30 ML UDCUP PO PRN (14:51)
[2020-02-29] MEDS ORDERED: POLYETHYLENE GLYCOL POWDER 17 GM PACK PO PRN (14:51)
[2020-02-29 16:12] VITALS: BP 139/67
== END 2020-02-29 16:25 | disposition home health service (06) ==
LOC: N.EDINP 13:52 → N.ED 13:52 → SUATTDRO 20:00 → N.TELEN 20:18
PROVIDERS: ADMIT Hospitalist; ATTEND Family Medicine

== ENCOUNTER 2020-03-23 10:15 | Observation (INO) ==
[2020-03-23 10:56] LABS: Basophils % 0.4 % (0.0-0.8); Eosinophils # 0.1 10*3/uL (0.0-0.87); Eosinophils % 1.5 % (0.00-10.9); Hematocrit 35.1 VOL% (35.7-47.0); Hemoglobin 11.2 GM/DL (12.0-16.0); Immature Granulocytes % 1.1 %; Immature Granulocytes Absolute 0.05 #; Lymphocytes % 21.6 % (21.3-54.2); Mean Corpuscular HGB Conc 31.9 GM/DL (32-36); Mean Corpuscular Volume 81.4 FL (87-102); Mean Platelet Volume 11.4 FL (9.6-12.0); Monocytes % 7.3 % (1.7-12.7); Neutrophils % 68.1 % (38.7-73.9); Platelet Count 135 T/CUMM (130-400); Red Blood Count 4.31 MC/CUMM (3.8-5.5); White Blood Count 4.7 T/CUMM (4-12)
[2020-03-23 11:03] LABS: Troponin I 0.085 NG/ML (0.00-0.045)
[2020-03-23 11:08] LABS: Bilirubin,Total 0.4 MG/DL (0.2-1.0); Calcium 8.9 MG/DL (8.5-10.1); Osmolality,Calculated 288.7 MOS/KG (273-304); Total Protein 7.2 G/DL (6.4-8.3)
[2020-03-23] MEDS ORDERED: MORPHINE 4 MG/1 ML VIAL IV ONE (11:40)
[2020-03-23] MEDS ORDERED: ONDANSETRON 4 MG/2 ML VIAL IV STA (11:40)
[2020-03-23] MEDS ORDERED: SODIUM CHLORIDE 0.9% 1,000 ML IV STA (11:47)
[2020-03-23 12:26] LABS: PT Patient Result 10.3 SECS (9.8-11.9)
[2020-03-23] MEDS ORDERED: INSULIN REGULAR 100 UNIT/ML IV ONE (12:31)
[2020-03-23] MEDS ORDERED: INSULIN LISPRO 100 UNIT/ML SUBCUT STA (13:17)
[2020-03-23] MEDS ORDERED: ACETAMINOPHEN 325 MG TABLET PO PRN (13:18)
[2020-03-23] MEDS ORDERED: GLUCAGON 1 MG VIAL IM PRN (13:18)
[2020-03-23] MEDS ORDERED: DEXTROSE 50% 25 GM/50 ML VIAL IV PRN (13:18)
[2020-03-23] MEDS ORDERED: ONDANSETRON 4 MG/2 ML VIAL IV PRN (13:18)
[2020-03-23] MEDS: INSULIN LISPRO 100 UNIT/ML SUBCUT SCH ×2 (14:00→18:20)
[2020-03-23 14:10] LABS: Risk Ratio 4.56; VLDL CHOLESTEROL 30.6 MG/DL
[2020-03-23] MEDS ORDERED: SODIUM CHLORIDE 0.9% 1,000 ML IV SCH (14:30)
[2020-03-23] MEDS ORDERED: ENOXAPARIN 40 MG/0.4 ML SYRINGE SUBCUT SCH (15:00)
[2020-03-23] MEDS: FERROUS SULFATE 325 MG TABLET PO SCH (16:43)
[2020-03-23] MEDS: SODIUM CHLORIDE 0.9% 1,000 ML IV SCH (16:48)
[2020-03-23] MEDS ORDERED: risperiDONE 1 MG TABLET PO SCH (21:00)
[2020-03-23] MEDS ORDERED: ASPIRIN CHEW 81 MG TABLET PO SCH (21:00)
[2020-03-23] MEDS ORDERED: INSULIN GLARGINE 100 UNIT/ML SUBCUT SCH (21:00)
[2020-03-23] MEDS ORDERED: ROSUVASTATIN 20 MG TABLET PO SCH (21:00)
[2020-03-23] MEDS ORDERED: tiZANidine 4 MG TABLET PO SCH (21:00)
[2020-03-23] MEDS: RANOLAZINE 500 MG TABLET PO SCH (21:27)
[2020-03-23] MEDS: gemfibroziL 600 MG TABLET PO SCH (21:28)
[2020-03-23] MEDS: GABAPENTIN 300 MG CAPSULE PO SCH (21:28)
[2020-03-23] MEDS: levETIRAcetam 500 MG TABLET PO SCH (21:30)
[2020-03-23] MEDS: NITROGLYCERIN SL 0.4 MG TABLET SL PRN (21:41)
[2020-03-24] MEDS: INSULIN LISPRO 100 UNIT/ML SUBCUT SCH ×4 (00:34→10:55)
[2020-03-24] MEDS: SODIUM CHLORIDE 0.9% 1,000 ML IV SCH ×2 (02:11→07:27)
[2020-03-24 05:39] LABS: Basophils % 0.6 % (0.0-0.8); Eosinophils # 0.1 10*3/uL (0.0-0.87); Eosinophils % 3.6 % (0.00-10.9); Hematocrit 31.7 VOL% (35.7-47.0); Hemoglobin 10.1 GM/DL (12.0-16.0); Immature Granulocytes % 0.6 %; Immature Granulocytes Absolute 0.02 #; Lymphocytes # 1.4 10*3/uL (1.4-4.0); Lymphocytes % 37.7 % (21.3-54.2); Mean Corpuscular HGB Conc 31.9 GM/DL (32-36); Mean Corpuscular Volume 81.1 FL (87-102); Mean Platelet Volume 11.8 FL (9.6-12.0); Monocytes % 10.5 % (1.7-12.7); Platelet Count 118 T/CUMM (130-400); Red Blood Count 3.91 MC/CUMM (3.8-5.5); Red Cell Distribution Width 17.5 % (9.3-17.3); White Blood Count 3.6 T/CUMM (4-12)
[2020-03-24 05:57] LABS: Hypochromasia 1+; Microcytosis 1+; Ovalocytes Slight; Platelet Estimate Decreased
[2020-03-24 06:03] LABS: Calcium 8.6 MG/DL (8.5-10.1); Osmolality,Calculated 280.8 MOS/KG (273-304)
[2020-03-24] MEDS: NITROGLYCERIN SL 0.4 MG TABLET SL PRN (07:27)
[2020-03-24 08:43] VITALS: BP 136/63
[2020-03-24] MEDS ORDERED: MULTIVITAMIN (CENTRUM) TABLET PO SCH (09:00)
[2020-03-24] MEDS ORDERED: PANTOPRAZOLE 40 MG TABLET PO SCH (09:00)
[2020-03-24] MEDS ORDERED: amLODIPine 5 MG TABLET PO SCH (09:00)
[2020-03-24] MEDS ORDERED: METOPROLOL SUCCINATE XL 25 MG TABLET PO SCH (09:00)
[2020-03-24] MEDS ORDERED: CLOPIDOGREL 75 MG TABLET PO SCH (09:00)
[2020-03-24] MEDS ORDERED: ISOSORBIDE MONONITRATE 60 MG TABLET PO SCH (09:00)
[2020-03-24] MEDS ORDERED: SPIRONOLACTONE 25 MG TABLET PO SCH (09:00)
[2020-03-24] MEDS ORDERED: SERTRALINE 100 MG TABLET PO SCH (09:00)
[2020-03-24] MEDS: FERROUS SULFATE 325 MG TABLET PO SCH (09:39)
[2020-03-24] MEDS: gemfibroziL 600 MG TABLET PO SCH (09:41)
[2020-03-24] MEDS: GABAPENTIN 300 MG CAPSULE PO SCH (09:41)
[2020-03-24] MEDS: levETIRAcetam 500 MG TABLET PO SCH (09:41)
[2020-03-24] MEDS: RANOLAZINE 500 MG TABLET PO SCH (09:43)
[2020-03-24] MEDS ORDERED: POTASSIUM CHLORIDE 20 MEQ TABLET PO ONE (09:58)
== END 2020-03-24 14:10 | disposition home or self-care (01) ==
LOC: N.EDINP 10:15 → N.ED 10:15 → N.3E 14:28
PROVIDERS: ADMIT Emergency Medicine; ATTEND Emergency Medicine

== ENCOUNTER 2020-04-06 11:27 | Inpatient (IN) ==
[2020-04-06] MEDS ORDERED: NITROGLYCERIN SL 0.4 MG TABLET SL STA (12:06)
[2020-04-06 12:12] LABS: Basophils % 0.4 % (0.0-0.8); Eosinophils # 0.1 10*3/uL (0.0-0.87); Eosinophils % 1.5 % (0.00-10.9); Hematocrit 35.9 VOL% (35.7-47.0); Hemoglobin 11.7 GM/DL (12.0-16.0); Immature Granulocytes % 0.2 %; Immature Granulocytes Absolute 0.01 #; Lymphocytes # 1.2 10*3/uL (1.4-4.0); Lymphocytes % 25.5 % (21.3-54.2); Mean Corpuscular HGB Conc 32.6 GM/DL (32-36); Mean Corpuscular Volume 81.8 FL (87-102); Mean Platelet Volume 10.7 FL (9.6-12.0); Monocytes % 8.5 % (1.7-12.7); Neutrophils % 63.9 % (38.7-73.9); Platelet Count 160 T/CUMM (130-400); Red Blood Count 4.39 MC/CUMM (3.8-5.5); Red Cell Distribution Width 16.6 % (9.3-17.3); White Blood Count 4.6 T/CUMM (4-12)
[2020-04-06 12:30] LABS: Bilirubin,Total 0.4 MG/DL (0.2-1.0); Calcium 9.2 MG/DL (8.5-10.1); Total Protein 7.8 G/DL (6.4-8.3)
[2020-04-06] MEDS ORDERED: NITROGLYCERIN SL 0.4 MG TABLET SL PRN (13:11)
[2020-04-06] MEDS ORDERED: ALPRAZolam 0.5 MG TABLET PO ONE (13:12)
[2020-04-06] MEDS ORDERED: LACTULOSE 20 GM/30 ML UDCUP PO PRN (13:18)
[2020-04-06] MEDS ORDERED: ACETAMINOPHEN 325 MG TABLET PO PRN (13:18)
[2020-04-06] MEDS ORDERED: diphenhydrAMINE CAP 25 MG CAPSULE PO PRN (13:18)
[2020-04-06] MEDS ORDERED: traZODone 50 MG TABLET PO PRN (13:18)
[2020-04-06] MEDS ORDERED: DOCUSATE SODIUM 100 MG CAPSULE PO PRN (13:18)
[2020-04-06] MEDS ORDERED: ZALEPLON 5 MG CAPSULE PO PRN (13:18)
[2020-04-06] MEDS ORDERED: ALUMINUM/MAGNES/SIMETH MAX STR 30 ML UDCUP PO PRN (13:18)
[2020-04-06] MEDS ORDERED: DEXTROSE 50% 25 GM/50 ML VIAL IV PRN (13:18)
[2020-04-06] MEDS ORDERED: SIMETHICONE CHEW 125 MG TABLET PO PRN (13:18)
[2020-04-06] MEDS ORDERED: BISACODYL 5 MG TABLET PO PRN (13:18)
[2020-04-06] MEDS ORDERED: guaiFENesin/DM ER 600-30 MG TABLET PO PRN (13:18)
[2020-04-06] MEDS ORDERED: GLUCAGON 1 MG VIAL IM PRN (13:18)
[2020-04-06] MEDS ORDERED: hydrALAZINE 20 MG/1 ML VIAL IV PRN (13:18)
[2020-04-06 14:29] LABS: Bacteria,Urine Occasional /HPF (Few); Bilirubin,Urine Negative (Negative); Blood, Urine Negative (Negative); Glucose,Urine (UA) Negative (Negative); Hyaline Casts,Urine 1 /LPF (0-3); Ketones,Urine Negative (Negative); Mucus,Urine Occasional /LPF (Occasional); Nitrite,Urine Negative (Negative); Protein,Urine Negative; RBC,Urine 1 /HPF (0-4); Urine Appearance CLEAR (Clear); Urine Color Yellow (Yellow); Urine Specific Gravity 1.016 (1.001-1.035); Urine Urobilinogen < 2.0 EU/DL (0.2-1.0); WBC,Urine <1 /HPF (0-6)
[2020-04-06] MEDS ORDERED: INFLUENZA VIRUS VACCINE 0.5 ML SYRINGE IM ONE (16:11)
[2020-04-06] MEDS: INSULIN REGULAR 100 UNIT/ML SUBCUT SCH ×2 (17:27→21:06)
[2020-04-06] MEDS: gemfibroziL 600 MG TABLET PO SCH (17:28)
[2020-04-06] MEDS: ENOXAPARIN 40 MG/0.4 ML SYRINGE SUBCUT SCH (20:39)
[2020-04-06] MEDS: glipiZIDE 5 MG TABLET PO SCH (20:40)
[2020-04-06] MEDS: RANOLAZINE 500 MG TABLET PO SCH (20:40)
[2020-04-06] MEDS: risperiDONE 1 MG TABLET PO SCH (20:41)
[2020-04-06] MEDS: ROSUVASTATIN 20 MG TABLET PO SCH (20:41)
[2020-04-06] MEDS: MULTIVITAMIN (CENTRUM) TABLET PO SCH (20:43)
[2020-04-06] MEDS: GABAPENTIN 300 MG CAPSULE PO SCH (20:43)
[2020-04-06] MEDS: metFORMIN 500 MG TABLET PO SCH (20:43)
[2020-04-06] MEDS: levETIRAcetam 500 MG TABLET PO SCH (20:44)
[2020-04-06] MEDS: ASPIRIN CHEW 81 MG TABLET PO SCH (20:44)
[2020-04-06] MEDS: CARBIDOPA/LEVODOPA 10-100 MG TABLET PO SCH (21:05)
[2020-04-07 05:17] LABS: Basophils % 0.3 % (0.0-0.8); Eosinophils # 0.1 10*3/uL (0.0-0.87); Eosinophils % 1.8 % (0.00-10.9); Hematocrit 35.8 VOL% (35.7-47.0); Hemoglobin 11.4 GM/DL (12.0-16.0); Immature Granulocytes % 0.5 %; Immature Granulocytes Absolute 0.02 #; Lymphocytes # 1.5 10*3/uL (1.4-4.0); Lymphocytes % 38.3 % (21.3-54.2); Mean Corpuscular HGB Conc 31.8 GM/DL (32-36); Mean Corpuscular Volume 83.3 FL (87-102); Mean Platelet Volume 10.9 FL (9.6-12.0); Monocytes % 10.9 % (1.7-12.7); Neutrophils % 48.2 % (38.7-73.9); Platelet Count 133 T/CUMM (130-400); Red Cell Distribution Width 16.6 % (9.3-17.3); White Blood Count 3.9 T/CUMM (4-12)
[2020-04-07 05:38] LABS: Albumin 3.8 G/DL (3.4-5.0); Bilirubin,Total 0.5 MG/DL (0.2-1.0); Calcium 9.2 MG/DL (8.5-10.1); Osmolality,Calculated 278.7 MOS/KG (273-304); Total Protein 7.3 G/DL (6.4-8.3)
[2020-04-07 05:43] LABS: Hypochromasia 1+; Microcytosis 1+; Ovalocytes Slight; Platelet Estimate Adequate
[2020-04-07] MEDS ORDERED: CLOPIDOGREL 75 MG TABLET PO SCH (09:00)
[2020-04-07] MEDS ORDERED: PANTOPRAZOLE 40 MG TABLET PO SCH (09:00)
[2020-04-07] MEDS: GABAPENTIN 300 MG CAPSULE PO SCH ×2 (10:14→22:07)
[2020-04-07] MEDS: glipiZIDE 5 MG TABLET PO SCH ×2 (10:14→22:08)
[2020-04-07] MEDS: MULTIVITAMIN (CENTRUM) TABLET PO SCH ×2 (10:14→22:07)
[2020-04-07] MEDS: RANOLAZINE 500 MG TABLET PO SCH ×2 (10:14→22:08)
[2020-04-07] MEDS: CARBIDOPA/LEVODOPA 10-100 MG TABLET PO SCH ×3 (10:14→22:07)
[2020-04-07] MEDS: SPIRONOLACTONE 25 MG TABLET PO SCH (10:15)
[2020-04-07] MEDS: ISOSORBIDE MONONITRATE 60 MG TABLET PO SCH (10:15)
[2020-04-07] MEDS: LOSARTAN 50 MG TABLET PO SCH (10:15)
[2020-04-07] MEDS: SERTRALINE 100 MG TABLET PO SCH (10:15)
[2020-04-07] MEDS: levETIRAcetam 500 MG TABLET PO SCH ×2 (10:16→22:07)
[2020-04-07] MEDS: gemfibroziL 600 MG TABLET PO SCH ×2 (10:16→17:01)
[2020-04-07] MEDS: metFORMIN 500 MG TABLET PO SCH ×2 (10:16→22:07)
[2020-04-07] MEDS: amLODIPine 5 MG TABLET PO SCH (10:16)
[2020-04-07] MEDS: METOPROLOL SUCCINATE XL 25 MG TABLET PO SCH (10:16)
[2020-04-07] MEDS: PANTOPRAZOLE 40 MG TABLET PO SCH ×2 (10:17→22:09)
[2020-04-07] MEDS: INSULIN REGULAR 100 UNIT/ML SUBCUT SCH ×4 (10:34→22:09)
[2020-04-07] MEDS: POLYETHYLENE GLYCOL POWDER 17 GM PACK PO SCH ×2 (10:43→22:09)
[2020-04-07] MEDS: CHLORTHALIDONE 25 MG TABLET PO SCH (10:43)
[2020-04-07] MEDS: CLOPIDOGREL 75 MG TABLET PO SCH (10:43)
[2020-04-07] MEDS: ONDANSETRON 4 MG/2 ML VIAL IV PRN (19:27)
[2020-04-07] MEDS: ROSUVASTATIN 20 MG TABLET PO SCH (22:08)
[2020-04-07] MEDS: risperiDONE 1 MG TABLET PO SCH (22:08)
[2020-04-07] MEDS: ASPIRIN CHEW 81 MG TABLET PO SCH (22:08)
[2020-04-07] MEDS: ENOXAPARIN 40 MG/0.4 ML SYRINGE SUBCUT SCH (22:09)
[2020-04-08 05:16] LABS: Basophils % 0.3 % (0.0-0.8); Eosinophils # 0.1 10*3/uL (0.0-0.87); Eosinophils % 2.7 % (0.00-10.9); Hematocrit 35.5 VOL% (35.7-47.0); Hemoglobin 11.5 GM/DL (12.0-16.0); Immature Granulocytes % 0.3 %; Immature Granulocytes Absolute 0.01 #; Lymphocytes # 1.4 10*3/uL (1.4-4.0); Lymphocytes % 36.9 % (21.3-54.2); Mean Corpuscular HGB Conc 32.4 GM/DL (32-36); Mean Corpuscular Volume 82.6 FL (87-102); Mean Platelet Volume 10.6 FL (9.6-12.0); Monocytes % 11.5 % (1.7-12.7); Neutrophils % 48.3 % (38.7-73.9); Platelet Count 118 T/CUMM (130-400); Red Cell Distribution Width 16.6 % (9.3-17.3); White Blood Count 3.7 T/CUMM (4-12)
[2020-04-08 06:50] LABS: Albumin 3.7 G/DL (3.4-5.0); Bilirubin,Total 0.6 MG/DL (0.2-1.0); Calcium 9.7 MG/DL (8.5-10.1); Osmolality,Calculated 276.7 MOS/KG (273-304); Total Protein 7.3 G/DL (6.4-8.3)
[2020-04-08] MEDS: RANOLAZINE 500 MG TABLET PO SCH ×2 (10:20→20:05)
[2020-04-08] MEDS: SPIRONOLACTONE 25 MG TABLET PO SCH (10:20)
[2020-04-08] MEDS: ISOSORBIDE MONONITRATE 60 MG TABLET PO SCH (10:20)
[2020-04-08] MEDS: SERTRALINE 100 MG TABLET PO SCH (10:21)
[2020-04-08] MEDS: GABAPENTIN 300 MG CAPSULE PO SCH ×2 (10:21→20:05)
[2020-04-08] MEDS: METOPROLOL SUCCINATE XL 25 MG TABLET PO SCH (10:21)
[2020-04-08] MEDS: CARBIDOPA/LEVODOPA 10-100 MG TABLET PO SCH ×3 (10:21→20:06)
[2020-04-08] MEDS: MULTIVITAMIN (CENTRUM) TABLET PO SCH ×2 (10:22→20:05)
[2020-04-08] MEDS: CHLORTHALIDONE 25 MG TABLET PO SCH (10:23)
[2020-04-08] MEDS: CLOPIDOGREL 75 MG TABLET PO SCH (10:23)
[2020-04-08] MEDS: gemfibroziL 600 MG TABLET PO SCH ×2 (10:23→15:54)
[2020-04-08] MEDS: glipiZIDE 5 MG TABLET PO SCH ×2 (10:23→20:06)
[2020-04-08] MEDS: metFORMIN 500 MG TABLET PO SCH ×2 (10:23→20:06)
[2020-04-08] MEDS: amLODIPine 5 MG TABLET PO SCH (10:23)
[2020-04-08] MEDS: PANTOPRAZOLE 40 MG TABLET PO SCH ×2 (10:23→20:06)
[2020-04-08] MEDS: LOSARTAN 50 MG TABLET PO SCH (10:23)
[2020-04-08] MEDS: levETIRAcetam 500 MG TABLET PO SCH ×2 (10:24→20:06)
[2020-04-08] MEDS: POLYETHYLENE GLYCOL POWDER 17 GM PACK PO SCH ×3 (10:24→20:06)
[2020-04-08] MEDS: INSULIN REGULAR 100 UNIT/ML SUBCUT SCH ×4 (11:04→20:06)
[2020-04-08] MEDS: ONDANSETRON 4 MG/2 ML VIAL IV PRN ×2 (12:51→20:04)
[2020-04-08] MEDS ORDERED: MAGNESIUM HYDROXIDE SUSP 30 ML UDCUP PO ONE (14:42)
[2020-04-08] MEDS: ROSUVASTATIN 20 MG TABLET PO SCH (20:06)
[2020-04-08] MEDS: risperiDONE 1 MG TABLET PO SCH (20:06)
[2020-04-08] MEDS: ASPIRIN CHEW 81 MG TABLET PO SCH (20:06)
[2020-04-08] MEDS: DOCUSATE SODIUM 100 MG CAPSULE PO SCH (20:08)
[2020-04-09] MEDS: SENNA 8.6 MG TABLET PO SCH ×2 (00:40→23:00)
[2020-04-09 05:37] LABS: Basophils % 0.3 % (0.0-0.8); Eosinophils # 0.1 10*3/uL (0.0-0.87); Eosinophils % 3.1 % (0.00-10.9); Hematocrit 34.2 VOL% (35.7-47.0); Immature Granulocytes % 0.5 %; Immature Granulocytes Absolute 0.02 #; Lymphocytes # 1.2 10*3/uL (1.4-4.0); Lymphocytes % 31.8 % (21.3-54.2); Mean Corpuscular HGB Conc 32.2 GM/DL (32-36); Mean Corpuscular Volume 82.4 FL (87-102); Mean Platelet Volume 10.4 FL (9.6-12.0); Monocytes % 11.6 % (1.7-12.7); Neutrophils % 52.7 % (38.7-73.9); Platelet Count 133 T/CUMM (130-400); Red Blood Count 4.15 MC/CUMM (3.8-5.5); Red Cell Distribution Width 16.3 % (9.3-17.3); White Blood Count 3.9 T/CUMM (4-12)
[2020-04-09 06:04] LABS: Albumin 3.6 G/DL (3.4-5.0); Bilirubin,Total 0.5 MG/DL (0.2-1.0); Calcium 9.5 MG/DL (8.5-10.1); Osmolality,Calculated 279.7 MOS/KG (273-304); Total Protein 7.1 G/DL (6.4-8.3)
[2020-04-09 06:13] LABS: Hypochromasia Slight; Microcytosis Slight; Platelet Estimate Normal
[2020-04-09] MEDS: INSULIN REGULAR 100 UNIT/ML SUBCUT SCH ×4 (07:30→21:36)
[2020-04-09] MEDS ORDERED: ETOMIDATE 20 MG/10 ML VIAL IV ONE (10:00)
[2020-04-09] MEDS ORDERED: propofoL 200 MG/20 ML VIAL IV ONE (10:00)
[2020-04-09] MEDS ORDERED: ONDANSETRON 4 MG/2 ML VIAL ONE (10:00)
[2020-04-09] MEDS ORDERED: LIDOCAINE 2% 5 ML VIAL ONE (10:00)
[2020-04-09] MEDS: ONDANSETRON 4 MG/2 ML VIAL IV PRN ×4 (10:11→19:09)
[2020-04-09] MEDS: POLYETHYLENE GLYCOL POWDER 17 GM PACK PO SCH ×3 (10:48→23:00)
[2020-04-09] MEDS: LOSARTAN 50 MG TABLET PO SCH (10:51)
[2020-04-09] MEDS: RANOLAZINE 500 MG TABLET PO SCH ×2 (10:51→21:21)
[2020-04-09] MEDS: amLODIPine 5 MG TABLET PO SCH (10:51)
[2020-04-09] MEDS: SERTRALINE 100 MG TABLET PO SCH (10:51)
[2020-04-09] MEDS: tiZANidine 4 MG TABLET PO PRN (10:51)
[2020-04-09] MEDS: CHLORTHALIDONE 25 MG TABLET PO SCH (10:52)
[2020-04-09] MEDS: MULTIVITAMIN (CENTRUM) TABLET PO SCH ×2 (10:52→21:21)
[2020-04-09] MEDS: PANTOPRAZOLE 40 MG TABLET PO SCH ×2 (10:52→21:21)
[2020-04-09] MEDS: gemfibroziL 600 MG TABLET PO SCH ×2 (10:52→17:08)
[2020-04-09] MEDS: levETIRAcetam 500 MG TABLET PO SCH ×2 (10:52→21:22)
[2020-04-09] MEDS: CARBIDOPA/LEVODOPA 10-100 MG TABLET PO SCH ×3 (10:52→21:21)
[2020-04-09] MEDS: DOCUSATE SODIUM 100 MG CAPSULE PO SCH ×2 (10:52→23:00)
[2020-04-09] MEDS: GABAPENTIN 300 MG CAPSULE PO SCH ×2 (10:52→21:21)
[2020-04-09] MEDS: metFORMIN 500 MG TABLET PO SCH ×2 (10:52→21:21)
[2020-04-09] MEDS: SPIRONOLACTONE 25 MG TABLET PO SCH (10:52)
[2020-04-09] MEDS: CLOPIDOGREL 75 MG TABLET PO SCH (10:53)
[2020-04-09] MEDS: METOPROLOL SUCCINATE XL 25 MG TABLET PO SCH (10:53)
[2020-04-09] MEDS: ISOSORBIDE MONONITRATE 60 MG TABLET PO SCH (10:53)
[2020-04-09] MEDS: glipiZIDE 5 MG TABLET PO SCH ×2 (10:53→21:22)
[2020-04-09] MEDS ORDERED: PHENYLEPHRINE 0.25% SUPP RECTAL PRN (14:20)
[2020-04-09] MEDS: ASPIRIN CHEW 81 MG TABLET PO SCH (21:21)
[2020-04-09] MEDS: ROSUVASTATIN 20 MG TABLET PO SCH (21:21)
[2020-04-09] MEDS: risperiDONE 1 MG TABLET PO SCH (21:33)
[2020-04-09] MEDS: ENOXAPARIN 40 MG/0.4 ML SYRINGE SUBCUT SCH (21:33)
[2020-04-10] MEDS: ONDANSETRON 4 MG/2 ML VIAL IV PRN ×4 (05:30→22:04)
[2020-04-10] MEDS: INSULIN REGULAR 100 UNIT/ML SUBCUT SCH ×4 (07:54→22:19)
[2020-04-10] MEDS: RANOLAZINE 500 MG TABLET PO SCH ×2 (09:03→21:54)
[2020-04-10] MEDS: amLODIPine 5 MG TABLET PO SCH (09:03)
[2020-04-10] MEDS: METOPROLOL SUCCINATE XL 25 MG TABLET PO SCH (09:03)
[2020-04-10] MEDS: MULTIVITAMIN (CENTRUM) TABLET PO SCH ×2 (09:03→21:54)
[2020-04-10] MEDS: CARBIDOPA/LEVODOPA 10-100 MG TABLET PO SCH ×3 (09:03→21:54)
[2020-04-10] MEDS: glipiZIDE 5 MG TABLET PO SCH ×2 (09:03→21:54)
[2020-04-10] MEDS: GABAPENTIN 300 MG CAPSULE PO SCH ×2 (09:03→21:54)
[2020-04-10] MEDS: SERTRALINE 100 MG TABLET PO SCH (09:04)
[2020-04-10] MEDS: CHLORTHALIDONE 25 MG TABLET PO SCH (09:04)
[2020-04-10] MEDS: ISOSORBIDE MONONITRATE 60 MG TABLET PO SCH (09:04)
[2020-04-10] MEDS: CLOPIDOGREL 75 MG TABLET PO SCH (09:04)
[2020-04-10] MEDS: levETIRAcetam 500 MG TABLET PO SCH ×2 (09:04→21:54)
[2020-04-10] MEDS: metFORMIN 500 MG TABLET PO SCH ×2 (09:04→21:55)
[2020-04-10] MEDS: tiZANidine 4 MG TABLET PO PRN ×2 (09:04→22:05)
[2020-04-10] MEDS: gemfibroziL 600 MG TABLET PO SCH ×2 (09:04→16:16)
[2020-04-10] MEDS: LOSARTAN 50 MG TABLET PO SCH (09:04)
[2020-04-10] MEDS: SPIRONOLACTONE 25 MG TABLET PO SCH (09:04)
[2020-04-10] MEDS: PANTOPRAZOLE 40 MG TABLET PO SCH ×2 (09:05→21:54)
[2020-04-10] MEDS: POLYETHYLENE GLYCOL POWDER 17 GM PACK PO SCH ×3 (09:08→22:19)
[2020-04-10] MEDS: DOCUSATE SODIUM 100 MG CAPSULE PO SCH ×2 (09:13→22:18)
[2020-04-10] MEDS: ENOXAPARIN 40 MG/0.4 ML SYRINGE SUBCUT SCH (21:53)
[2020-04-10] MEDS: ROSUVASTATIN 20 MG TABLET PO SCH (21:54)
[2020-04-10] MEDS: risperiDONE 1 MG TABLET PO SCH (21:54)
[2020-04-10] MEDS: ASPIRIN CHEW 81 MG TABLET PO SCH (21:54)
[2020-04-10] MEDS: SENNA 8.6 MG TABLET PO SCH (22:19)
[2020-04-11 05:58] LABS: Calcium 8.8 MG/DL (8.5-10.1); Osmolality,Calculated 274.1 MOS/KG (273-304)
[2020-04-11] MEDS: MULTIVITAMIN (CENTRUM) TABLET PO SCH (08:12)
[2020-04-11] MEDS: INSULIN REGULAR 100 UNIT/ML SUBCUT SCH ×2 (08:12→12:29)
[2020-04-11] MEDS: gemfibroziL 600 MG TABLET PO SCH (08:12)
[2020-04-11] MEDS: SPIRONOLACTONE 25 MG TABLET PO SCH (08:12)
[2020-04-11] MEDS: metFORMIN 500 MG TABLET PO SCH (08:13)
[2020-04-11] MEDS: DOCUSATE SODIUM 100 MG CAPSULE PO SCH (08:13)
[2020-04-11] MEDS: LOSARTAN 50 MG TABLET PO SCH (08:13)
[2020-04-11] MEDS: glipiZIDE 5 MG TABLET PO SCH (08:14)
[2020-04-11] MEDS: POLYETHYLENE GLYCOL POWDER 17 GM PACK PO SCH (08:14)
[2020-04-11] MEDS: levETIRAcetam 500 MG TABLET PO SCH (08:14)
[2020-04-11] MEDS: CHLORTHALIDONE 25 MG TABLET PO SCH (08:14)
[2020-04-11] MEDS: ISOSORBIDE MONONITRATE 60 MG TABLET PO SCH (08:14)
[2020-04-11] MEDS: GABAPENTIN 300 MG CAPSULE PO SCH (08:15)
[2020-04-11] MEDS: amLODIPine 5 MG TABLET PO SCH (08:15)
[2020-04-11] MEDS: CLOPIDOGREL 75 MG TABLET PO SCH (08:15)
[2020-04-11] MEDS: CARBIDOPA/LEVODOPA 10-100 MG TABLET PO SCH (08:15)
[2020-04-11] MEDS: RANOLAZINE 500 MG TABLET PO SCH (08:15)
[2020-04-11] MEDS: PANTOPRAZOLE 40 MG TABLET PO SCH (08:15)
[2020-04-11] MEDS: SERTRALINE 100 MG TABLET PO SCH (08:16)
[2020-04-11] MEDS: METOPROLOL SUCCINATE XL 25 MG TABLET PO SCH (08:16)
[2020-04-11 12:20] VITALS: BP 130/65
[2020-04-11] MEDS: ONDANSETRON 4 MG/2 ML VIAL IV PRN (12:24)
== END 2020-04-11 14:24 | disposition home health service (06) | DRG 370 ==
LOC: N.EDINP 11:27 → N.ED 11:27 → N.EDINP 14:16 → N.TELES 14:53 → SUATTDRO 04-07 08:39
PROVIDERS: ADMIT Hospitalist; ATTEND Internal Medicine

== ENCOUNTER 2020-04-29 11:21 | Observation (INO) ==
[2020-04-29] MEDS ORDERED: MORPHINE 4 MG/1 ML VIAL IV STA (12:50)
[2020-04-29 12:59] LABS: Basophils % 0.2 % (0.0-0.8); Eosinophils # 0.1 10*3/uL (0.0-0.87); Eosinophils % 1.6 % (0.00-10.9); Hematocrit 32.3 VOL% (35.7-47.0); Hemoglobin 10.5 GM/DL (12.0-16.0); Immature Granulocytes % 0.9 %; Immature Granulocytes Absolute 0.04 #; Lymphocytes % 23.1 % (21.3-54.2); Mean Corpuscular HGB Conc 32.5 GM/DL (32-36); Mean Corpuscular Volume 84.3 FL (87-102); Mean Platelet Volume 11.4 FL (9.6-12.0); Monocytes % 8.6 % (1.7-12.7); Neutrophils % 65.6 % (38.7-73.9); Platelet Count 154 T/CUMM (130-400); Red Blood Count 3.83 MC/CUMM (3.8-5.5); Red Cell Distribution Width 17.2 % (9.3-17.3); White Blood Count 4.5 T/CUMM (4-12)
[2020-04-29 13:07] LABS: PT Patient Result 10.4 SECS (9.8-11.9)
[2020-04-29 13:13] LABS: Albumin 3.9 G/DL (3.4-5.0); Bilirubin,Total 0.4 MG/DL (0.2-1.0); Calcium 8.7 MG/DL (8.5-10.1); Osmolality,Calculated 280.8 MOS/KG (273-304); Potassium 4.1 MMOL/L (3.5-5.1)
[2020-04-29] MEDS ORDERED: ACETAMINOPHEN 325 MG TABLET PO PRN (14:29)
[2020-04-29] MEDS ORDERED: DEXTROSE 50% 25 GM/50 ML VIAL IV PRN (14:29)
[2020-04-29] MEDS ORDERED: GLUCAGON 1 MG VIAL IM PRN (14:29)
[2020-04-29] MEDS ORDERED: DOCUSATE SODIUM 100 MG CAPSULE PO PRN (14:29)
[2020-04-29] MEDS ORDERED: MORPHINE 4 MG/1 ML VIAL IV PRN (14:29)
[2020-04-29] MEDS ORDERED: hydrALAZINE 20 MG/1 ML VIAL IV PRN (14:29)
[2020-04-29] MEDS ORDERED: NITROGLYCERIN SL 0.4 MG TABLET SL PRN (14:33)
[2020-04-29] MEDS ORDERED: traMADol 50 MG TABLET PO PRN (14:33)
[2020-04-29] MEDS: gemfibroziL 600 MG TABLET PO SCH (18:07)
[2020-04-29] MEDS: CARBIDOPA/LEVODOPA 10-100 MG TABLET PO SCH ×2 (18:07→21:21)
[2020-04-29] MEDS: tiZANidine 4 MG TABLET PO SCH (21:20)
[2020-04-29] MEDS: glipiZIDE 5 MG TABLET PO SCH (21:20)
[2020-04-29] MEDS: metFORMIN 500 MG TABLET PO SCH (21:20)
[2020-04-29] MEDS: ASPIRIN CHEW 81 MG TABLET PO SCH (21:20)
[2020-04-29] MEDS: ROSUVASTATIN 20 MG TABLET PO SCH (21:21)
[2020-04-29] MEDS: RANOLAZINE 500 MG TABLET PO SCH (21:21)
[2020-04-29] MEDS: GABAPENTIN 300 MG CAPSULE PO SCH (21:21)
[2020-04-29] MEDS: PANTOPRAZOLE 40 MG TABLET PO SCH (21:21)
[2020-04-29] MEDS: levETIRAcetam 500 MG TABLET PO SCH (21:21)
[2020-04-29] MEDS: MULTIVITAMIN (CENTRUM) TABLET PO SCH (21:21)
[2020-04-29] MEDS: risperiDONE 1 MG TABLET PO SCH (21:25)
[2020-04-30] MEDS ORDERED: ONDANSETRON 4 MG/2 ML VIAL IV PRN (00:35)
[2020-04-30 05:52] LABS: Bilirubin,Urine Negative (Negative); Blood, Urine Negative (Negative); Glucose,Urine (UA) Negative (Negative); Ketones,Urine Negative (Negative); Mucus,Urine Occasional /LPF (Occasional); Nitrite,Urine Negative (Negative); Protein,Urine Negative; RBC,Urine 1 /HPF (0-4); Squamous Epithelial Cell,Urine Occasional /HPF (0-10); Urine Appearance CLEAR (Clear); Urine Color Yellow (Yellow); Urine Specific Gravity 1.018 (1.001-1.035); Urine Urobilinogen < 2.0 EU/DL (0.2-1.0); WBC,Urine 1 /HPF (0-6)
[2020-04-30 06:36] LABS: Calcium 9.1 MG/DL (8.5-10.1); Osmolality,Calculated 283.4 MOS/KG (273-304); Potassium 4.1 MMOL/L (3.5-5.1)
[2020-04-30] MEDS ORDERED: ALUM/MAG/SIMETH/LIDO VISC 1:1 30 ML BOTTLE PO ONE (08:20)
[2020-04-30] MEDS ORDERED: METOPROLOL SUCCINATE XL 25 MG TABLET PO SCH (09:00)
[2020-04-30] MEDS: metFORMIN 500 MG TABLET PO SCH ×2 (09:51→21:18)
[2020-04-30] MEDS: ISOSORBIDE MONONITRATE 60 MG TABLET PO SCH (09:51)
[2020-04-30] MEDS: PANTOPRAZOLE 40 MG TABLET PO SCH ×2 (09:51→21:17)
[2020-04-30] MEDS: CLOPIDOGREL 75 MG TABLET PO SCH (09:58)
[2020-04-30] MEDS: MULTIVITAMIN (CENTRUM) TABLET PO SCH ×2 (09:59→21:17)
[2020-04-30] MEDS: GABAPENTIN 300 MG CAPSULE PO SCH ×2 (09:59→21:16)
[2020-04-30] MEDS: RANOLAZINE 500 MG TABLET PO SCH ×2 (09:59→21:16)
[2020-04-30] MEDS: amLODIPine 5 MG TABLET PO SCH (09:59)
[2020-04-30] MEDS: gemfibroziL 600 MG TABLET PO SCH ×2 (09:59→16:20)
[2020-04-30] MEDS: LOSARTAN 50 MG TABLET PO SCH (10:00)
[2020-04-30] MEDS: SERTRALINE 100 MG TABLET PO SCH (10:00)
[2020-04-30] MEDS: glipiZIDE 5 MG TABLET PO SCH ×2 (10:00→21:16)
[2020-04-30] MEDS: levETIRAcetam 500 MG TABLET PO SCH ×2 (10:00→21:17)
[2020-04-30] MEDS: tiZANidine 4 MG TABLET PO SCH ×2 (10:01→21:14)
[2020-04-30] MEDS: DICLOFENAC SODIUM 50 MG TABLET PO SCH (10:02)
[2020-04-30] MEDS: clonazePAM 0.5 MG TABLET PO SCH ×3 (10:33→21:14)
[2020-04-30] MEDS: CARBIDOPA/LEVODOPA 10-100 MG TABLET PO SCH ×3 (10:33→21:15)
[2020-04-30] MEDS: LIDOCAINE 5% PATCH TRANSDERM SCH (12:16)
[2020-04-30] MEDS: risperiDONE 1 MG TABLET PO SCH (21:14)
[2020-04-30] MEDS: ASPIRIN CHEW 81 MG TABLET PO SCH (21:15)
[2020-04-30] MEDS: ROSUVASTATIN 20 MG TABLET PO SCH (21:17)
[2020-05-01 07:11] LABS: Basophils % 0.2 % (0.0-0.8); Eosinophils # 0.1 10*3/uL (0.0-0.87); Hematocrit 30.9 VOL% (35.7-47.0); Hemoglobin 10.2 GM/DL (12.0-16.0); Immature Granulocytes % 0.4 %; Immature Granulocytes Absolute 0.02 #; Lymphocytes # 1.1 10*3/uL (1.4-4.0); Lymphocytes % 22.2 % (21.3-54.2); Mean Platelet Volume 11.3 FL (9.6-12.0); Monocytes % 8.8 % (1.7-12.7); Neutrophils % 66.4 % (38.7-73.9); Platelet Count 124 T/CUMM (130-400); Red Blood Count 3.68 MC/CUMM (3.8-5.5)
[2020-05-01 07:28] LABS: Calcium 8.9 MG/DL (8.5-10.1); Osmolality,Calculated 283.5 MOS/KG (273-304); Potassium 4.2 MMOL/L (3.5-5.1)
[2020-05-01 07:30] LABS: Platelet Estimate Adequate
[2020-05-01 07:31] LABS: Anisocytosis Slight
[2020-05-01] MEDS: clonazePAM 0.5 MG TABLET PO SCH ×3 (09:00→20:45)
[2020-05-01] MEDS: GABAPENTIN 300 MG CAPSULE PO SCH ×2 (09:00→20:43)
[2020-05-01] MEDS: glipiZIDE 5 MG TABLET PO SCH ×2 (09:00→20:45)
[2020-05-01] MEDS: DICLOFENAC SODIUM 50 MG TABLET PO SCH (09:00)
[2020-05-01] MEDS: CARBIDOPA/LEVODOPA 10-100 MG TABLET PO SCH ×3 (09:00→20:44)
[2020-05-01] MEDS: SERTRALINE 100 MG TABLET PO SCH (09:01)
[2020-05-01] MEDS: ISOSORBIDE MONONITRATE 60 MG TABLET PO SCH (09:01)
[2020-05-01] MEDS: levETIRAcetam 500 MG TABLET PO SCH ×2 (09:01→20:44)
[2020-05-01] MEDS: gemfibroziL 600 MG TABLET PO SCH ×2 (09:01→15:43)
[2020-05-01] MEDS: RANOLAZINE 500 MG TABLET PO SCH ×2 (09:01→20:42)
[2020-05-01] MEDS: CLOPIDOGREL 75 MG TABLET PO SCH (09:01)
[2020-05-01] MEDS: PANTOPRAZOLE 40 MG TABLET PO SCH ×2 (09:01→20:44)
[2020-05-01] MEDS: MULTIVITAMIN (CENTRUM) TABLET PO SCH ×2 (09:01→20:42)
[2020-05-01] MEDS: metFORMIN 500 MG TABLET PO SCH ×2 (09:01→20:45)
[2020-05-01] MEDS: LIDOCAINE 5% PATCH TRANSDERM SCH (09:02)
[2020-05-01] MEDS: METOPROLOL SUCCINATE XL 25 MG TABLET PO SCH (09:49)
[2020-05-01] MEDS: tiZANidine 4 MG TABLET PO SCH ×2 (09:49→20:42)
[2020-05-01] MEDS: LOSARTAN 50 MG TABLET PO SCH (09:49)
[2020-05-01] MEDS: amLODIPine 5 MG TABLET PO SCH (09:49)
[2020-05-01] MEDS: ROSUVASTATIN 20 MG TABLET PO SCH (20:43)
[2020-05-01] MEDS: ASPIRIN CHEW 81 MG TABLET PO SCH (20:43)
[2020-05-01] MEDS: risperiDONE 1 MG TABLET PO SCH (20:44)
[2020-05-02] MEDS: clonazePAM 0.5 MG TABLET PO SCH (08:47)
[2020-05-02] MEDS: SERTRALINE 100 MG TABLET PO SCH (08:47)
[2020-05-02] MEDS: GABAPENTIN 300 MG CAPSULE PO SCH (08:47)
[2020-05-02] MEDS: metFORMIN 500 MG TABLET PO SCH (08:47)
[2020-05-02] MEDS: CLOPIDOGREL 75 MG TABLET PO SCH (08:47)
[2020-05-02] MEDS: ISOSORBIDE MONONITRATE 60 MG TABLET PO SCH (08:47)
[2020-05-02] MEDS: METOPROLOL SUCCINATE XL 25 MG TABLET PO SCH (08:47)
[2020-05-02] MEDS: MULTIVITAMIN (CENTRUM) TABLET PO SCH (08:48)
[2020-05-02] MEDS: PANTOPRAZOLE 40 MG TABLET PO SCH (08:48)
[2020-05-02] MEDS: DICLOFENAC SODIUM 50 MG TABLET PO SCH (08:48)
[2020-05-02] MEDS: RANOLAZINE 500 MG TABLET PO SCH (08:48)
[2020-05-02] MEDS: CARBIDOPA/LEVODOPA 10-100 MG TABLET PO SCH (08:48)
[2020-05-02] MEDS: levETIRAcetam 500 MG TABLET PO SCH (08:48)
[2020-05-02] MEDS: tiZANidine 4 MG TABLET PO SCH (08:48)
[2020-05-02] MEDS: amLODIPine 5 MG TABLET PO SCH (08:48)
[2020-05-02] MEDS: LOSARTAN 50 MG TABLET PO SCH (08:48)
[2020-05-02] MEDS: LIDOCAINE 5% PATCH TRANSDERM SCH (08:49)
[2020-05-02] MEDS: glipiZIDE 5 MG TABLET PO SCH (08:49)
[2020-05-02] MEDS: gemfibroziL 600 MG TABLET PO SCH (08:49)
[2020-05-02 10:05] VITALS: BP 142/88
== END 2020-05-02 10:07 | disposition home or self-care (01) ==
LOC: N.EDINP 11:21 → N.ED 11:21 → SUATTDRO 14:29 → N.TELEN 17:41
PROVIDERS: ADMIT Internal Medicine; ATTEND Emergency Medicine

== ENCOUNTER 2020-05-09 18:13 | Observation (INO) ==
[2020-05-09] MEDS ORDERED: LACTATED RINGERS 250 ML IV ONE (19:12)
[2020-05-09] MEDS ORDERED: ASPIRIN 325 MG TABLET PO STA ×2 (19:12→19:18)
[2020-05-09] MEDS ORDERED: ALUM/MAG/SIMETH/LIDO VISC 1:1 30 ML BOTTLE PO STA (19:18)
[2020-05-09] MEDS ORDERED: MORPHINE 4 MG/1 ML VIAL IV STA (19:18)
[2020-05-09] MEDS ORDERED: NITROGLYCERIN 2% OINT 1 INCH/GM PACK TOP STA (19:18)
[2020-05-09 19:26] LABS: Basophils % 0.5 % (0.0-0.8); Eosinophils # 0.1 10*3/uL (0.0-0.87); Eosinophils % 2.5 % (0.00-10.9); Hematocrit 32.2 VOL% (35.7-47.0); Hemoglobin 10.7 GM/DL (12.0-16.0); Immature Granulocytes % 2.4 %; Immature Granulocytes Absolute 0.13 #; Lymphocytes # 1.3 10*3/uL (1.4-4.0); Mean Corpuscular HGB Conc 33.2 GM/DL (32-36); Mean Platelet Volume 10.5 FL (9.6-12.0); Monocytes % 8.2 % (1.7-12.7); Neutrophils % 62.4 % (38.7-73.9); Platelet Count 168 T/CUMM (130-400); Red Blood Count 3.88 MC/CUMM (3.8-5.5); Red Cell Distribution Width 16.8 % (9.3-17.3); White Blood Count 5.5 T/CUMM (4-12)
[2020-05-09 19:37] LABS: PT Patient Result 10.5 SECS (9.8-11.9); Troponin I 0.052 NG/ML (0.00-0.045)
[2020-05-09 19:39] LABS: Albumin 4.1 G/DL (3.4-5.0); Bilirubin,Total 0.4 MG/DL (0.2-1.0); Calcium 8.9 MG/DL (8.5-10.1); Osmolality,Calculated 281.7 MOS/KG (273-304); Total Protein 7.7 G/DL (6.4-8.3)
[2020-05-09] MEDS ORDERED: DEXTROSE 50% 25 GM/50 ML VIAL IV PRN (20:21)
[2020-05-09] MEDS ORDERED: GLUCAGON 1 MG VIAL IM PRN (20:21)
[2020-05-09] MEDS ORDERED: ZALEPLON 5 MG CAPSULE PO PRN (20:21)
[2020-05-09] MEDS ORDERED: MORPHINE 4 MG/1 ML VIAL IV PRN (20:21)
[2020-05-09] MEDS: ONDANSETRON 4 MG/2 ML VIAL IV PRN (20:46)
[2020-05-10] MEDS: ONDANSETRON 4 MG/2 ML VIAL IV PRN ×2 (01:05→09:59)
[2020-05-10] MEDS: INSULIN REGULAR 100 UNIT/ML SUBCUT SCH ×5 (05:12→21:03)
[2020-05-10] MEDS: ENOXAPARIN 40 MG/0.4 ML SYRINGE SUBCUT SCH ×2 (08:20→21:03)
[2020-05-10] MEDS: PANTOPRAZOLE 40 MG TABLET PO SCH (09:11)
[2020-05-10] MEDS ORDERED: clonazePAM 0.5 MG TABLET PO PRN (09:41)
[2020-05-10] MEDS ORDERED: NITROGLYCERIN SL 0.4 MG TABLET SL PRN (09:41)
[2020-05-10] MEDS: CLOPIDOGREL 75 MG TABLET PO SCH (12:30)
[2020-05-10] MEDS: ISOSORBIDE MONONITRATE 60 MG TABLET PO SCH (12:30)
[2020-05-10] MEDS: amLODIPine 5 MG TABLET PO SCH (12:30)
[2020-05-10] MEDS: CHLORTHALIDONE 25 MG TABLET PO SCH (12:30)
[2020-05-10] MEDS: SERTRALINE 100 MG TABLET PO SCH (12:30)
[2020-05-10] MEDS: RANOLAZINE 500 MG TABLET PO SCH ×2 (12:30→21:02)
[2020-05-10] MEDS: METOPROLOL SUCCINATE XL 25 MG TABLET PO SCH (12:30)
[2020-05-10] MEDS: LOSARTAN 50 MG TABLET PO SCH (12:30)
[2020-05-10] MEDS: levETIRAcetam 500 MG TABLET PO SCH ×2 (12:30→21:02)
[2020-05-10] MEDS: CARBIDOPA/LEVODOPA 10-100 MG TABLET PO SCH ×2 (15:20→21:02)
[2020-05-10] MEDS: gemfibroziL 600 MG TABLET PO SCH (16:12)
[2020-05-10] MEDS ORDERED: risperiDONE 1 MG TABLET PO SCH (21:00)
[2020-05-10] MEDS ORDERED: ASPIRIN CHEW 81 MG TABLET PO SCH (21:00)
[2020-05-10] MEDS ORDERED: ROSUVASTATIN 20 MG TABLET PO SCH (21:00)
[2020-05-10] MEDS: GABAPENTIN 300 MG CAPSULE PO SCH (21:02)
[2020-05-10] MEDS: tiZANidine 4 MG TABLET PO SCH (21:02)
[2020-05-10] MEDS: MULTIVITAMIN (CENTRUM) TABLET PO SCH (21:03)
[2020-05-11 08:41] VITALS: BP 142/74
[2020-05-11] MEDS ORDERED: LIDOCAINE 5% PATCH TRANSDERM SCH (09:00)
[2020-05-11] MEDS ORDERED: DICLOFENAC SODIUM 50 MG TABLET PO SCH (09:00)
[2020-05-11] MEDS: CHLORTHALIDONE 25 MG TABLET PO SCH (09:06)
[2020-05-11] MEDS: levETIRAcetam 500 MG TABLET PO SCH (09:06)
[2020-05-11] MEDS: RANOLAZINE 500 MG TABLET PO SCH (09:06)
[2020-05-11] MEDS: GABAPENTIN 300 MG CAPSULE PO SCH (09:07)
[2020-05-11] MEDS: MULTIVITAMIN (CENTRUM) TABLET PO SCH (09:07)
[2020-05-11] MEDS: CARBIDOPA/LEVODOPA 10-100 MG TABLET PO SCH (09:07)
[2020-05-11] MEDS: amLODIPine 5 MG TABLET PO SCH (09:08)
[2020-05-11] MEDS: ISOSORBIDE MONONITRATE 60 MG TABLET PO SCH (09:08)
[2020-05-11] MEDS: gemfibroziL 600 MG TABLET PO SCH (09:08)
[2020-05-11] MEDS: METOPROLOL SUCCINATE XL 25 MG TABLET PO SCH (09:08)
[2020-05-11] MEDS: PANTOPRAZOLE 40 MG TABLET PO SCH (09:08)
[2020-05-11] MEDS: tiZANidine 4 MG TABLET PO SCH (09:09)
[2020-05-11] MEDS: LOSARTAN 50 MG TABLET PO SCH (09:09)
[2020-05-11] MEDS: CLOPIDOGREL 75 MG TABLET PO SCH (09:09)
[2020-05-11] MEDS: SERTRALINE 100 MG TABLET PO SCH (09:09)
[2020-05-11] MEDS: INSULIN REGULAR 100 UNIT/ML SUBCUT SCH (09:10)
== END 2020-05-11 10:50 | disposition home or self-care (01) ==
LOC: N.ED 18:13 → N.EDINP 18:13 → N.TELES 05-10 15:38 → N.EDINP 05-10 15:44 → N.TELES 05-10 15:50
PROVIDERS: ADMIT Internal Medicine; ATTEND Internal Medicine

== ENCOUNTER 2020-05-26 10:08 | Observation (INO) ==
[2020-05-26 10:57] LABS: Basophils % 0.3 % (0.0-0.8); Eosinophils # 0.2 10*3/uL (0.0-0.87); Eosinophils % 2.4 % (0.00-10.9); Hematocrit 31.9 VOL% (35.7-47.0); Hemoglobin 10.6 GM/DL (12.0-16.0); Immature Granulocytes % 1.8 %; Immature Granulocytes Absolute 0.12 #; Lymphocytes # 1.1 10*3/uL (1.4-4.0); Lymphocytes % 15.5 % (21.3-54.2); Mean Corpuscular HGB Conc 33.2 GM/DL (32-36); Mean Corpuscular Volume 84.6 FL (87-102); Mean Platelet Volume 10.4 FL (9.6-12.0); Monocytes % 6.9 % (1.7-12.7); Neutrophils % 73.1 % (38.7-73.9); Platelet Count 169 T/CUMM (130-400); Red Blood Count 3.77 MC/CUMM (3.8-5.5); Red Cell Distribution Width 16.1 % (9.3-17.3); White Blood Count 6.8 T/CUMM (4-12)
[2020-05-26 11:09] LABS: Albumin 3.9 G/DL (3.4-5.0); Bilirubin,Total 0.7 MG/DL (0.2-1.0); Calcium 8.8 MG/DL (8.5-10.1); Total Protein 7.7 G/DL (6.4-8.3)
[2020-05-26 11:11] LABS: Troponin I 0.061 NG/ML (0.00-0.045)
[2020-05-26] MEDS ORDERED: traMADol 50 MG TABLET PO STA (11:29)
[2020-05-26] MEDS ORDERED: ONDANSETRON ODT 4 MG TABLET PO STA (11:47)
[2020-05-26] MEDS ORDERED: ONDANSETRON ODT 4 MG TABLET PO ONE (11:48)
[2020-05-26] MEDS ORDERED: MORPHINE 4 MG/1 ML VIAL IV STA (13:11)
[2020-05-26] MEDS ORDERED: DEXTROSE 50% 25 GM/50 ML VIAL IV PRN (13:51)
[2020-05-26] MEDS ORDERED: ONDANSETRON 4 MG/2 ML VIAL IV PRN (13:51)
[2020-05-26] MEDS ORDERED: DOCUSATE SODIUM 100 MG CAPSULE PO PRN (13:51)
[2020-05-26] MEDS ORDERED: ACETAMINOPHEN 325 MG TABLET PO PRN (13:51)
[2020-05-26] MEDS ORDERED: GLUCAGON 1 MG VIAL IM PRN (13:51)
[2020-05-26] MEDS ORDERED: ALUMINUM/MAGNES/SIMETH MAX STR 30 ML UDCUP PO PRN (13:51)
[2020-05-26] MEDS ORDERED: clonazePAM 0.5 MG TABLET PO PRN (15:05)
[2020-05-26] MEDS: INSULIN LISPRO 100 UNIT/ML SUBCUT SCH ×2 (16:53→20:11)
[2020-05-26] MEDS: gemfibroziL 600 MG TABLET PO SCH (16:53)
[2020-05-26] MEDS ORDERED: ENOXAPARIN 40 MG/0.4 ML SYRINGE SUBCUT SCH (17:00)
[2020-05-26] MEDS: MORPHINE 4 MG/1 ML VIAL IV PRN (19:58)
[2020-05-26] MEDS: levETIRAcetam 500 MG TABLET PO SCH (20:12)
[2020-05-26] MEDS: metFORMIN 500 MG TABLET PO SCH (20:13)
[2020-05-26] MEDS: RANOLAZINE 500 MG TABLET PO SCH (20:13)
[2020-05-26] MEDS: CARBIDOPA/LEVODOPA 10-100 MG TABLET PO SCH (20:13)
[2020-05-26] MEDS: glipiZIDE 5 MG TABLET PO SCH (20:13)
[2020-05-26] MEDS ORDERED: ROSUVASTATIN 20 MG TABLET PO SCH (21:00)
[2020-05-26] MEDS ORDERED: ASPIRIN CHEW 81 MG TABLET PO SCH (21:00)
[2020-05-27] MEDS: MORPHINE 4 MG/1 ML VIAL IV PRN (03:57)
[2020-05-27 05:36] LABS: Basophils % 0.4 % (0.0-0.8); Eosinophils # 0.1 10*3/uL (0.0-0.87); Eosinophils % 2.4 % (0.00-10.9); Hematocrit 32.9 VOL% (35.7-47.0); Hemoglobin 11.1 GM/DL (12.0-16.0); Lymphocytes # 1.1 10*3/uL (1.4-4.0); Lymphocytes % 22.5 % (21.3-54.2); Mean Corpuscular HGB Conc 33.7 GM/DL (32-36); Mean Corpuscular Volume 84.8 FL (87-102); Mean Platelet Volume 10.6 FL (9.6-12.0); Monocytes % 9.7 % (1.7-12.7); Platelet Count 158 T/CUMM (130-400); Red Blood Count 3.88 MC/CUMM (3.8-5.5); Red Cell Distribution Width 15.9 % (9.3-17.3); White Blood Count 5.1 T/CUMM (4-12)
[2020-05-27 05:50] LABS: Albumin 4.1 G/DL (3.4-5.0); Bilirubin,Total 0.8 MG/DL (0.2-1.0); Calcium 9.1 MG/DL (8.5-10.1); Total Protein 7.7 G/DL (6.4-8.3)
[2020-05-27] MEDS: gemfibroziL 600 MG TABLET PO SCH (08:24)
[2020-05-27] MEDS: levETIRAcetam 500 MG TABLET PO SCH (08:25)
[2020-05-27] MEDS: RANOLAZINE 500 MG TABLET PO SCH (08:25)
[2020-05-27] MEDS: glipiZIDE 5 MG TABLET PO SCH (08:25)
[2020-05-27] MEDS: CARBIDOPA/LEVODOPA 10-100 MG TABLET PO SCH (08:25)
[2020-05-27] MEDS: INSULIN LISPRO 100 UNIT/ML SUBCUT SCH (08:26)
[2020-05-27] MEDS: metFORMIN 500 MG TABLET PO SCH (08:26)
[2020-05-27] MEDS ORDERED: PANTOPRAZOLE 40 MG TABLET PO SCH (09:00)
[2020-05-27] MEDS ORDERED: amLODIPine 5 MG TABLET PO SCH (09:00)
[2020-05-27] MEDS ORDERED: ISOSORBIDE MONONITRATE 60 MG TABLET PO SCH (09:00)
[2020-05-27] MEDS ORDERED: LOSARTAN 50 MG TABLET PO SCH (09:00)
[2020-05-27] MEDS ORDERED: CLOPIDOGREL 75 MG TABLET PO SCH (09:00)
[2020-05-27] MEDS ORDERED: METOPROLOL SUCCINATE XL 25 MG TABLET PO SCH (09:00)
[2020-05-27] MEDS ORDERED: CHLORTHALIDONE 25 MG TABLET PO SCH (09:00)
[2020-05-27] MEDS ORDERED: LORazepam 2 MG/1 ML VIAL IV ONE (09:06)
[2020-05-27] MEDS ORDERED: ONDANSETRON 4 MG/2 ML VIAL IV ONE (09:09)
[2020-05-27 10:52] VITALS: BP 152/78
== END 2020-05-27 11:45 | disposition home or self-care (01) ==
LOC: N.EDINP 10:08 → N.ED 10:08 → N.EDINP 15:23 → N.TELES 15:36
PROVIDERS: ADMIT Emergency Medicine; ATTEND Emergency Medicine

== ENCOUNTER 2020-08-15 17:57 | Observation (INO) ==
[2020-08-15] MEDS ORDERED: FUROSEMIDE 40 MG/4 ML VIAL IV STA (20:41)
[2020-08-15 21:11] LABS: Basophils % 0.4 % (0.0-0.8); Eosinophils # 0.1 10*3/uL (0.0-0.87); Eosinophils % 2.9 % (0.00-10.9); Hematocrit 27.6 VOL% (35.7-47.0); Hemoglobin 8.4 GM/DL (12.0-16.0); Immature Granulocytes Absolute 0.18 #; Lymphocytes # 1.2 10*3/uL (1.4-4.0); Lymphocytes % 25.8 % (21.3-54.2); Mean Corpuscular HGB Conc 30.4 GM/DL (32-36); Mean Corpuscular Volume 87.3 FL (87-102); Mean Platelet Volume 10.9 FL (9.6-12.0); Monocytes % 11.7 % (1.7-12.7); NRBC # 0.03 10*3/uL; Neutrophils % 55.2 % (38.7-73.9); Platelet Count 140 T/CUMM (130-400); Red Blood Count 3.16 MC/CUMM (3.8-5.5); Red Cell Distribution Width 14.8 % (9.3-17.3); White Blood Count 4.5 T/CUMM (4-12)
[2020-08-15] MEDS ORDERED: KETOROLAC 30 MG/1 ML VIAL IV STA (21:15)
[2020-08-15 21:19] LABS: Albumin 3.3 G/DL (3.4-5.0); Bilirubin,Total 0.4 MG/DL (0.2-1.0); Calcium 8.5 MG/DL (8.5-10.1); Potassium 4.5 MMOL/L (3.5-5.1); Total Protein 6.8 G/DL (5.0-7.5)
[2020-08-15 21:22] LABS: PT Patient Result 10.7 SECS (9.8-11.9)
[2020-08-15] MEDS ORDERED: MAGNESIUM SULF RIDER 4 GM in PREMIX 1 EACH IV PRN (23:40)
[2020-08-15] MEDS ORDERED: ONDANSETRON 4 MG/2 ML VIAL IV PRN (23:40)
[2020-08-15] MEDS ORDERED: DEXTROSE 50% 25 GM/50 ML VIAL IV PRN ×2 (23:40)
[2020-08-15] MEDS ORDERED: MAGNESIUM SULF RIDER 2 GM in PREMIX 1 EACH IV PRN (23:40)
[2020-08-15] MEDS ORDERED: GLUCAGON 1 MG VIAL IM PRN ×2 (23:40)
[2020-08-15] MEDS ORDERED: BENZONATATE 100 MG CAPSULE PO PRN (23:54)
[2020-08-16] MEDS: risperiDONE 1 MG TABLET PO SCH ×2 (00:30→22:21)
[2020-08-16] MEDS: levETIRAcetam 500 MG TABLET PO SCH ×3 (00:30→22:21)
[2020-08-16] MEDS: GABAPENTIN 300 MG CAPSULE PO SCH ×3 (00:30→22:21)
[2020-08-16] MEDS: ROSUVASTATIN 20 MG TABLET PO SCH ×2 (00:30→22:21)
[2020-08-16] MEDS: RANOLAZINE 500 MG TABLET PO SCH ×3 (00:40→22:21)
[2020-08-16] MEDS: tiZANidine 4 MG TABLET PO SCH ×3 (00:40→22:21)
[2020-08-16] MEDS ORDERED: KETOROLAC 15 MG/1 ML VIAL IV ONE (02:30)
[2020-08-16] MEDS: ENOXAPARIN 40 MG/0.4 ML SYRINGE SUBCUT SCH (03:15)
[2020-08-16 08:32] LABS: Basophils % 0.3 % (0.0-0.8); Eosinophils # 0.1 10*3/uL (0.0-0.87); Eosinophils % 3.8 % (0.00-10.9); Hematocrit 26.5 VOL% (35.7-47.0); Hemoglobin 8.1 GM/DL (12.0-16.0); Immature Granulocytes % 2.9 %; Immature Granulocytes Absolute 0.09 #; Lymphocytes # 0.8 10*3/uL (1.4-4.0); Lymphocytes % 25.8 % (21.3-54.2); Mean Corpuscular HGB Conc 30.6 GM/DL (32-36); Mean Corpuscular Volume 87.2 FL (87-102); Mean Platelet Volume 11.1 FL (9.6-12.0); Monocytes % 10.8 % (1.7-12.7); NRBC # 0.02 10*3/uL; Neutrophils % 56.4 % (38.7-73.9); Platelet Count 134 T/CUMM (130-400); Red Blood Count 3.04 MC/CUMM (3.8-5.5); Red Cell Distribution Width 14.8 % (9.3-17.3); White Blood Count 3.1 T/CUMM (4-12)
[2020-08-16 08:51] LABS: Albumin 3.1 G/DL (3.4-5.0); Bilirubin,Total 0.4 MG/DL (0.2-1.0); Calcium 8.7 MG/DL (8.5-10.1); Osmolality,Calculated 283.4 MOS/KG (273-304); Potassium 3.8 MMOL/L (3.5-5.1); Risk Ratio 4.57; Total Protein 6.6 G/DL (5.0-7.5); VLDL CHOLESTEROL 39.6 MG/DL
[2020-08-16] MEDS ORDERED: FERROUS SULFATE 300 MG/5 ML UDCUP PO SCH ×2 (09:00→13:10)
[2020-08-16] MEDS ORDERED: ERGOCALCIFEROL 50,000 UNIT CAPSULE PO SCH (09:00)
[2020-08-16] MEDS: amLODIPine 5 MG TABLET PO SCH (10:12)
[2020-08-16] MEDS: LOSARTAN 50 MG TABLET PO SCH (10:12)
[2020-08-16] MEDS: ISOSORBIDE MONONITRATE 30 MG TABLET PO SCH (10:12)
[2020-08-16] MEDS: DICLOFENAC SODIUM 50 MG TABLET PO SCH (10:12)
[2020-08-16] MEDS: CARBIDOPA/LEVODOPA 10-100 MG TABLET PO SCH ×3 (10:15→22:21)
[2020-08-16] MEDS: SERTRALINE 100 MG TABLET PO SCH (10:15)
[2020-08-16] MEDS: CLOPIDOGREL 75 MG TABLET PO SCH (10:15)
[2020-08-16] MEDS: ESCITALOPRAM 10 MG TABLET PO SCH (10:16)
[2020-08-16] MEDS: MULTIVITAMIN (CENTRUM) TABLET PO SCH (10:17)
[2020-08-16] MEDS: PANTOPRAZOLE 40 MG TABLET PO SCH (10:17)
[2020-08-16] MEDS: METOPROLOL SUCCINATE XL 25 MG TABLET PO SCH (10:18)
[2020-08-16] MEDS: gemfibroziL 600 MG TABLET PO SCH ×2 (10:20→16:55)
[2020-08-16] MEDS: SPIRONOLACTONE 25 MG TABLET PO SCH (10:23)
[2020-08-16] MEDS: CHLORTHALIDONE 25 MG TABLET PO SCH (10:24)
[2020-08-16] MEDS: FUROSEMIDE 40 MG/4 ML VIAL IV SCH ×2 (10:31→17:02)
[2020-08-16 11:20] LABS: % Iron Saturation 6.8 % (18-50); Ferritin 16.1 ng/ml (8-252)
[2020-08-16] MEDS: ACETAMINOPHEN 325 MG TABLET PO PRN ×2 (12:14→22:30)
[2020-08-16 19:33] LABS: Folate 22.4 NG/ML (5.38-24.0)
[2020-08-16] MEDS ORDERED: ASPIRIN CHEW 81 MG TABLET PO SCH (21:00)
[2020-08-17] MEDS: ENOXAPARIN 40 MG/0.4 ML SYRINGE SUBCUT SCH (00:57)
[2020-08-17 07:15] LABS: Basophils % 0.5 % (0.0-0.8); Eosinophils # 0.1 10*3/uL (0.0-0.87); Eosinophils % 2.4 % (0.00-10.9); Hemoglobin 8.4 GM/DL (12.0-16.0); Immature Granulocytes % 2.9 %; Immature Granulocytes Absolute 0.11 #; Lymphocytes % 26.1 % (21.3-54.2); Mean Corpuscular Volume 88.1 FL (87-102); Mean Platelet Volume 10.8 FL (9.6-12.0); Monocytes % 12.5 % (1.7-12.7); NRBC # 0.02 10*3/uL; Neutrophils % 55.6 % (38.7-73.9); Platelet Count 136 T/CUMM (130-400); Red Blood Count 3.18 MC/CUMM (3.8-5.5); Red Cell Distribution Width 14.7 % (9.3-17.3); White Blood Count 3.8 T/CUMM (4-12)
[2020-08-17 07:42] LABS: Calcium 8.9 MG/DL (8.5-10.1); Osmolality,Calculated 284.8 MOS/KG (273-304); Potassium 4.1 MMOL/L (3.5-5.1)
[2020-08-17] MEDS: FUROSEMIDE 40 MG/4 ML VIAL IV SCH (10:09)
[2020-08-17] MEDS: gemfibroziL 600 MG TABLET PO SCH (10:09)
[2020-08-17] MEDS: RANOLAZINE 500 MG TABLET PO SCH (10:10)
[2020-08-17] MEDS: CARBIDOPA/LEVODOPA 10-100 MG TABLET PO SCH (10:10)
[2020-08-17] MEDS: METOPROLOL SUCCINATE XL 25 MG TABLET PO SCH (10:10)
[2020-08-17] MEDS: CLOPIDOGREL 75 MG TABLET PO SCH (10:10)
[2020-08-17] MEDS: tiZANidine 4 MG TABLET PO SCH (10:10)
[2020-08-17] MEDS: levETIRAcetam 500 MG TABLET PO SCH (10:10)
[2020-08-17] MEDS: GABAPENTIN 300 MG CAPSULE PO SCH (10:10)
[2020-08-17] MEDS: CHLORTHALIDONE 25 MG TABLET PO SCH (10:11)
[2020-08-17] MEDS: amLODIPine 5 MG TABLET PO SCH (10:11)
[2020-08-17] MEDS: SERTRALINE 100 MG TABLET PO SCH (10:11)
[2020-08-17] MEDS: MULTIVITAMIN (CENTRUM) TABLET PO SCH (10:12)
[2020-08-17] MEDS: LOSARTAN 50 MG TABLET PO SCH (10:12)
[2020-08-17] MEDS: ISOSORBIDE MONONITRATE 30 MG TABLET PO SCH (10:12)
[2020-08-17] MEDS: PANTOPRAZOLE 40 MG TABLET PO SCH (10:12)
[2020-08-17] MEDS: ESCITALOPRAM 10 MG TABLET PO SCH (10:13)
[2020-08-17] MEDS: SPIRONOLACTONE 25 MG TABLET PO SCH (10:13)
[2020-08-17] MEDS: DICLOFENAC SODIUM 50 MG TABLET PO SCH (10:16)
[2020-08-17 11:09] VITALS: BP 102/57
== END 2020-08-17 10:46 ==
LOC: N.EDINP 17:57 → N.ED 17:57 → N.4E 08-16 00:33
PROVIDERS: ADMIT Internal Medicine; ATTEND Internal Medicine

== ENCOUNTER 2020-11-03 11:55 | Observation (INO) ==
[2020-11-03 13:55] LABS: Basophils % 0.2 % (0.0-0.8); Eosinophils # 0.1 10*3/uL (0.0-0.87); Eosinophils % 1.8 % (0.00-10.9); Hematocrit 31.4 VOL% (35.7-47.0); Immature Granulocytes % 2.3 %; Immature Granulocytes Absolute 0.12 #; Lymphocytes % 20.2 % (21.3-54.2); Mean Corpuscular HGB Conc 31.8 GM/DL (32-36); Mean Corpuscular Volume 84.2 FL (87-102); Mean Platelet Volume 11.8 FL (9.6-12.0); Monocytes % 8.8 % (1.7-12.7); Neutrophils % 66.7 % (38.7-73.9); Platelet Count 140 T/CUMM (130-400); Red Blood Count 3.73 MC/CUMM (3.8-5.5); Red Cell Distribution Width 15.7 % (9.3-17.3); White Blood Count 5.1 T/CUMM (4-12)
[2020-11-03 14:06] LABS: Albumin 3.6 G/DL (3.4-5.0); Bilirubin,Total 0.4 MG/DL (0.2-1.0); Calcium 7.9 MG/DL (8.5-10.1); Osmolality,Calculated 294.1 MOS/KG (273-304); Potassium 3.2 MMOL/L (3.5-5.1); Total Protein 6.9 G/DL (6.4-8.2)
[2020-11-03] MEDS ORDERED: ALBUTEROL 2.5 MG/3 ML NEB RESP TX STA (14:44)
[2020-11-03] MEDS ORDERED: ONDANSETRON 4 MG/2 ML VIAL ONE (14:52)
[2020-11-03] MEDS ORDERED: ONDANSETRON 4 MG/2 ML VIAL IV STA (14:56)
[2020-11-03] MEDS ORDERED: DEXTROSE 50% 25 GM/50 ML VIAL IV PRN ×2 (16:51→16:57)
[2020-11-03] MEDS ORDERED: GLUCAGON 1 MG VIAL IM PRN (16:51)
[2020-11-03] MEDS ORDERED: guaiFENesin/DM ER 600-30 MG TABLET PO PRN (16:57)
[2020-11-03] MEDS ORDERED: ZALEPLON 5 MG CAPSULE PO PRN (17:15)
[2020-11-03] MEDS ORDERED: NITROGLYCERIN SL 0.4 MG TABLET SL PRN (17:15)
[2020-11-03] MEDS ORDERED: FUROSEMIDE 40 MG/4 ML VIAL IV ONE (17:30)
[2020-11-03] MEDS ORDERED: PANTOPRAZOLE 40 MG TABLET PO SCH (17:30)
[2020-11-03] MEDS: ENOXAPARIN 40 MG/0.4 ML SYRINGE SUBCUT SCH (18:13)
[2020-11-03] MEDS: POTASSIUM CHLORIDE 20 MEQ TABLET PO PRN (18:31)
[2020-11-03] MEDS: ACETAMINOPHEN 325 MG TABLET PO PRN (18:37)
[2020-11-03] MEDS: glipiZIDE 5 MG TABLET PO SCH (22:20)
[2020-11-03] MEDS: CARBIDOPA/LEVODOPA 10-100 MG TABLET PO SCH (22:20)
[2020-11-03] MEDS: RANOLAZINE 500 MG TABLET PO SCH (22:20)
[2020-11-03] MEDS: ASPIRIN CHEW 81 MG TABLET PO SCH (22:20)
[2020-11-03] MEDS: ROSUVASTATIN 20 MG TABLET PO SCH (22:20)
[2020-11-03] MEDS: tiZANidine 4 MG TABLET PO SCH (22:21)
[2020-11-03] MEDS: levETIRAcetam 500 MG TABLET PO SCH (22:21)
[2020-11-03] MEDS: GABAPENTIN 300 MG CAPSULE PO SCH (22:21)
[2020-11-03] MEDS: risperiDONE 0.5 MG TABLET PO SCH (22:21)
[2020-11-03] MEDS: INSULIN REGULAR 100 UNIT/ML SUBCUT SCH (22:22)
[2020-11-04 01:44] LABS: Bacteria,Urine Few /HPF (Few); Bilirubin,Urine Negative (Negative); Blood, Urine Negative (Negative); Glucose,Urine (UA) 150 mg/dL (Negative); Hyaline Casts,Urine 1 /LPF (0-3); Ketones,Urine Negative (Negative); Nitrite,Urine Positive (Negative); Protein,Urine Negative; RBC,Urine 2 /HPF (0-4); Squamous Epithelial Cell,Urine Occasional /HPF (0-10); Urine Appearance CLEAR (Clear); Urine Color Yellow (Yellow); Urine Specific Gravity 1.013 (1.001-1.035)
[2020-11-04 05:19] LABS: Basophils % 0.5 % (0.0-0.8); Eosinophils # 0.1 10*3/uL (0.0-0.87); Eosinophils % 3.2 % (0.00-10.9); Hematocrit 28.4 VOL% (35.7-47.0); Hemoglobin 8.8 GM/DL (12.0-16.0); Immature Granulocytes % 1.2 %; Immature Granulocytes Absolute 0.05 #; Lymphocytes # 1.2 10*3/uL (1.4-4.0); Mean Corpuscular Volume 83.8 FL (87-102); Mean Platelet Volume 11.6 FL (9.6-12.0); Monocytes % 11.2 % (1.7-12.7); NRBC # 0.02 10*3/uL; Neutrophils % 53.9 % (38.7-73.9); Platelet Count 103 T/CUMM (130-400); Red Blood Count 3.39 MC/CUMM (3.8-5.5); Red Cell Distribution Width 15.7 % (9.3-17.3)
[2020-11-04 05:37] LABS: Calcium 8.2 MG/DL (8.5-10.1); Osmolality,Calculated 289.6 MOS/KG (273-304); Potassium 2.9 MMOL/L (3.5-5.1)
[2020-11-04 05:39] LABS: Hypochromasia 1+; Microcytosis 1+; Platelet Estimate Decreased
[2020-11-04] MEDS: POTASSIUM CHLORIDE 20 MEQ TABLET PO PRN ×4 (06:00→12:09)
[2020-11-04] MEDS: gemfibroziL 600 MG TABLET PO SCH ×2 (06:40→16:21)
[2020-11-04] MEDS: amLODIPine 5 MG TABLET PO SCH (08:37)
[2020-11-04] MEDS: tiZANidine 4 MG TABLET PO SCH ×2 (08:37→21:19)
[2020-11-04] MEDS: SERTRALINE 50 MG TABLET PO SCH (08:37)
[2020-11-04] MEDS: PANTOPRAZOLE 40 MG TABLET PO SCH (08:37)
[2020-11-04] MEDS: SPIRONOLACTONE 25 MG TABLET PO SCH (08:37)
[2020-11-04] MEDS: levETIRAcetam 500 MG TABLET PO SCH ×2 (08:38→21:19)
[2020-11-04] MEDS: DICLOFENAC SODIUM 50 MG TABLET PO SCH (08:38)
[2020-11-04] MEDS: FERROUS SULFATE 300 MG/5 ML UDCUP PO SCH (08:38)
[2020-11-04] MEDS: glipiZIDE 5 MG TABLET PO SCH ×2 (08:38→21:19)
[2020-11-04] MEDS: CARBIDOPA/LEVODOPA 10-100 MG TABLET PO SCH ×3 (08:38→21:19)
[2020-11-04] MEDS: GABAPENTIN 300 MG CAPSULE PO SCH ×2 (08:38→21:20)
[2020-11-04] MEDS: RANOLAZINE 500 MG TABLET PO SCH ×2 (08:38→21:20)
[2020-11-04] MEDS: LOSARTAN 50 MG TABLET PO SCH (08:39)
[2020-11-04] MEDS: ISOSORBIDE MONONITRATE 30 MG TABLET PO SCH (08:39)
[2020-11-04] MEDS: cefTRIAXone 1,000 MG in SODIUM CHLORIDE 0.9% 100 ML IV SCH (08:39)
[2020-11-04] MEDS: MULTIVITAMIN (BEROCCA) TABLET PO SCH (08:40)
[2020-11-04] MEDS: CLOPIDOGREL 75 MG TABLET PO SCH (08:40)
[2020-11-04] MEDS: ONDANSETRON 4 MG/2 ML VIAL IV PRN ×2 (08:41→19:37)
[2020-11-04] MEDS: metFORMIN 500 MG TABLET PO SCH (08:41)
[2020-11-04] MEDS: INSULIN REGULAR 100 UNIT/ML SUBCUT SCH ×4 (08:50→21:55)
[2020-11-04] MEDS ORDERED: METOPROLOL SUCCINATE XL 25 MG TABLET PO SCH (09:00)
[2020-11-04] MEDS ORDERED: FUROSEMIDE 20 MG TABLET PO SCH (09:00)
[2020-11-04] MEDS: ENOXAPARIN 40 MG/0.4 ML SYRINGE SUBCUT SCH (16:21)
[2020-11-04] MEDS: GABAPENTIN 100 MG CAPSULE PO SCH (16:21)
[2020-11-04] MEDS: ACETAMINOPHEN 325 MG TABLET PO PRN (18:30)
[2020-11-04] MEDS: risperiDONE 0.5 MG TABLET PO SCH (21:19)
[2020-11-04] MEDS: ASPIRIN CHEW 81 MG TABLET PO SCH (21:20)
[2020-11-04] MEDS: ROSUVASTATIN 20 MG TABLET PO SCH (21:20)
[2020-11-05] MEDS: ACETAMINOPHEN 325 MG TABLET PO PRN ×3 (05:54→17:59)
[2020-11-05 06:26] LABS: Basophils % 0.2 % (0.0-0.8); Eosinophils # 0.2 10*3/uL (0.0-0.87); Eosinophils % 3.8 % (0.00-10.9); Hematocrit 29.7 VOL% (35.7-47.0); Hemoglobin 8.9 GM/DL (12.0-16.0); Immature Granulocytes % 1.4 %; Immature Granulocytes Absolute 0.06 #; Lymphocytes % 22.6 % (21.3-54.2); Mean Corpuscular Volume 86.6 FL (87-102); Mean Platelet Volume 10.6 FL (9.6-12.0); Platelet Count 109 T/CUMM (130-400); Red Blood Count 3.43 MC/CUMM (3.8-5.5); White Blood Count 4.2 T/CUMM (4-12)
[2020-11-05] MEDS: gemfibroziL 600 MG TABLET PO SCH ×2 (06:32→17:01)
[2020-11-05] MEDS: ONDANSETRON 4 MG/2 ML VIAL IV PRN ×2 (07:27→19:57)
[2020-11-05] MEDS: cefTRIAXone 1,000 MG in SODIUM CHLORIDE 0.9% 100 ML IV SCH (09:26)
[2020-11-05] MEDS: INSULIN REGULAR 100 UNIT/ML SUBCUT SCH ×4 (09:26→22:39)
[2020-11-05] MEDS: FERROUS SULFATE 300 MG/5 ML UDCUP PO SCH (09:27)
[2020-11-05] MEDS: PANTOPRAZOLE 40 MG TABLET PO SCH (09:27)
[2020-11-05] MEDS: SERTRALINE 50 MG TABLET PO SCH (09:27)
[2020-11-05] MEDS: glipiZIDE 5 MG TABLET PO SCH ×2 (09:28→22:39)
[2020-11-05] MEDS: amLODIPine 5 MG TABLET PO SCH (09:28)
[2020-11-05] MEDS: tiZANidine 4 MG TABLET PO SCH ×2 (09:28→21:51)
[2020-11-05] MEDS: MULTIVITAMIN (BEROCCA) TABLET PO SCH (09:28)
[2020-11-05] MEDS: levETIRAcetam 500 MG TABLET PO SCH ×2 (09:28→21:56)
[2020-11-05] MEDS: SPIRONOLACTONE 25 MG TABLET PO SCH (09:28)
[2020-11-05] MEDS: RANOLAZINE 500 MG TABLET PO SCH ×2 (09:28→21:51)
[2020-11-05] MEDS: ISOSORBIDE MONONITRATE 30 MG TABLET PO SCH (09:28)
[2020-11-05] MEDS: GABAPENTIN 300 MG CAPSULE PO SCH ×2 (09:28→21:51)
[2020-11-05] MEDS: metFORMIN 500 MG TABLET PO SCH (09:28)
[2020-11-05] MEDS: DICLOFENAC SODIUM 50 MG TABLET PO SCH (09:28)
[2020-11-05] MEDS: CARBIDOPA/LEVODOPA 10-100 MG TABLET PO SCH ×3 (09:29→21:52)
[2020-11-05] MEDS: LOSARTAN 50 MG TABLET PO SCH (09:29)
[2020-11-05] MEDS: CLOPIDOGREL 75 MG TABLET PO SCH (09:29)
[2020-11-05] MEDS ORDERED: oxyCODONE IR 5 MG TABLET PO ONE (15:00)
[2020-11-05] MEDS: GABAPENTIN 100 MG CAPSULE PO SCH (17:01)
[2020-11-05] MEDS ORDERED: ERGOCALCIFEROL 50,000 UNIT CAPSULE PO SCH (17:15)
[2020-11-05] MEDS: ENOXAPARIN 40 MG/0.4 ML SYRINGE SUBCUT SCH (17:56)
[2020-11-05] MEDS ORDERED: KETOROLAC 30 MG/1 ML VIAL IM ONE (20:17)
[2020-11-05] MEDS: ROSUVASTATIN 20 MG TABLET PO SCH (21:51)
[2020-11-05] MEDS: ASPIRIN CHEW 81 MG TABLET PO SCH (21:51)
[2020-11-05] MEDS: risperiDONE 0.5 MG TABLET PO SCH (21:52)
[2020-11-06] MEDS: ACETAMINOPHEN 325 MG TABLET PO PRN (05:47)
[2020-11-06 08:32] LABS: Basophils % 0.5 % (0.0-0.8); Eosinophils # 0.2 10*3/uL (0.0-0.87); Eosinophils % 4.8 % (0.00-10.9); Hematocrit 32.3 VOL% (35.7-47.0); Hemoglobin 9.7 GM/DL (12.0-16.0); Immature Granulocytes Absolute 0.13 #; Lymphocytes # 0.9 10*3/uL (1.4-4.0); Lymphocytes % 21.2 % (21.3-54.2); Mean Platelet Volume 10.8 FL (9.6-12.0); Monocytes % 7.3 % (1.7-12.7); Neutrophils % 63.2 % (38.7-73.9); Red Cell Distribution Width 15.7 % (9.3-17.3); White Blood Count 4.4 T/CUMM (4-12)
[2020-11-06 08:33] LABS: Platelet Count 118 T/CUMM (130-400)
[2020-11-06 08:44] LABS: Calcium 8.9 MG/DL (8.5-10.1); Osmolality,Calculated 277.7 MOS/KG (273-304); Potassium 4.4 MMOL/L (3.5-5.1)
[2020-11-06 09:00] VITALS: BP 152/86
[2020-11-06] MEDS: cefTRIAXone 1,000 MG in SODIUM CHLORIDE 0.9% 100 ML IV SCH (09:44)
[2020-11-06] MEDS: INSULIN REGULAR 100 UNIT/ML SUBCUT SCH ×2 (09:44→12:04)
[2020-11-06] MEDS: MULTIVITAMIN (BEROCCA) TABLET PO SCH (09:44)
[2020-11-06] MEDS: DICLOFENAC SODIUM 50 MG TABLET PO SCH (09:44)
[2020-11-06] MEDS: CLOPIDOGREL 75 MG TABLET PO SCH (09:46)
[2020-11-06] MEDS: RANOLAZINE 500 MG TABLET PO SCH (09:46)
[2020-11-06] MEDS: levETIRAcetam 500 MG TABLET PO SCH (09:46)
[2020-11-06] MEDS: tiZANidine 4 MG TABLET PO SCH (09:46)
[2020-11-06] MEDS: gemfibroziL 600 MG TABLET PO SCH (09:46)
[2020-11-06] MEDS: PANTOPRAZOLE 40 MG TABLET PO SCH (09:46)
[2020-11-06] MEDS: CARBIDOPA/LEVODOPA 10-100 MG TABLET PO SCH (09:51)
[2020-11-06] MEDS: SERTRALINE 50 MG TABLET PO SCH (09:51)
[2020-11-06] MEDS: LOSARTAN 50 MG TABLET PO SCH (09:52)
[2020-11-06] MEDS: metFORMIN 500 MG TABLET PO SCH (09:52)
[2020-11-06] MEDS: SPIRONOLACTONE 25 MG TABLET PO SCH (09:53)
[2020-11-06] MEDS: GABAPENTIN 300 MG CAPSULE PO SCH (09:53)
[2020-11-06] MEDS: ISOSORBIDE MONONITRATE 30 MG TABLET PO SCH (09:53)
[2020-11-06] MEDS: amLODIPine 5 MG TABLET PO SCH (09:53)
[2020-11-06] MEDS: glipiZIDE 5 MG TABLET PO SCH (09:53)
[2020-11-06] MEDS: FERROUS SULFATE 300 MG/5 ML UDCUP PO SCH (09:58)
== END 2020-11-06 12:20 | disposition home or self-care (01) ==
LOC: N.ED 11:55 → N.EDINP 11:55 → SUATTDRO 16:51 → N.TELES 17:43
PROVIDERS: ADMIT Internal Medicine Geriatric Medicine; ATTEND Internal Medicine

== ENCOUNTER 2020-11-17 16:26 | Inpatient (IN) ==
[2020-11-17 19:48] LABS: Basophils % 0.4 % (0.0-0.8); Eosinophils # 0.1 10*3/uL (0.0-0.87); Eosinophils % 1.4 % (0.00-10.9); Hematocrit 35.9 VOL% (35.7-47.0); Hemoglobin 11.1 GM/DL (12.0-16.0); Immature Granulocytes % 1.6 %; Immature Granulocytes Absolute 0.08 #; Lymphocytes # 1.4 10*3/uL (1.4-4.0); Lymphocytes % 27.5 % (21.3-54.2); Mean Corpuscular HGB Conc 30.9 GM/DL (32-36); Mean Corpuscular Volume 84.3 FL (87-102); Mean Platelet Volume 11.2 FL (9.6-12.0); Monocytes % 9.6 % (1.7-12.7); Neutrophils % 59.5 % (38.7-73.9); Platelet Count 145 T/CUMM (130-400); Red Blood Count 4.26 MC/CUMM (3.8-5.5); Red Cell Distribution Width 15.9 % (9.3-17.3)
[2020-11-17 20:01] LABS: Bilirubin,Total 0.4 MG/DL (0.2-1.0); Calcium 9.4 MG/DL (8.5-10.1); Osmolality,Calculated 277.8 MOS/KG (273-304); Potassium 4.8 MMOL/L (3.5-5.1); Total Protein 7.6 G/DL (6.4-8.2)
[2020-11-17] MEDS ORDERED: ASPIRIN 325 MG TABLET PO STA (20:21)
[2020-11-17] MEDS ORDERED: NITROGLYCERIN SL 0.4 MG TABLET SL STA (20:21)
[2020-11-17 21:01] LABS: Bilirubin,Urine Negative (Negative); Blood, Urine Negative (Negative); Glucose,Urine (UA) Negative (Negative); Ketones,Urine Negative (Negative); Nitrite,Urine Negative (Negative); Protein,Urine Negative; RBC,Urine 8 /HPF (0-4); Squamous Epithelial Cell,Urine Occasional /HPF (0-10); Urine Appearance Slightly Hazy (Clear); Urine Color Yellow (Yellow); Urine Specific Gravity 1.014 (1.001-1.035); Urine Urobilinogen < 2.0 EU/DL (0.2-1.0)
[2020-11-17] MEDS ORDERED: cefTRIAXone 1,000 MG in SODIUM CHLORIDE 0.9% 100 ML IV STA (21:12)
[2020-11-17] MEDS ORDERED: ACETAMINOPHEN 500 MG TABLET PO STA (21:37)
[2020-11-17] MEDS ORDERED: ACETAMINOPHEN 500 MG TABLET ONE (21:38)
[2020-11-17] MEDS ORDERED: NICOTINE 21 MG/24 HR PATCH TRANSDERM PRN (22:43)
[2020-11-17] MEDS ORDERED: guaiFENesin/DM ER 600-30 MG TABLET PO PRN (22:43)
[2020-11-17] MEDS ORDERED: diphenhydrAMINE CAP 25 MG CAPSULE PO PRN (22:43)
[2020-11-17] MEDS ORDERED: hydrALAZINE 20 MG/1 ML VIAL IV PRN (22:43)
[2020-11-17] MEDS ORDERED: DEXTROSE 50% 25 GM/50 ML VIAL IV PRN ×2 (22:43)
[2020-11-17] MEDS ORDERED: GLUCAGON 1 MG VIAL IM PRN ×2 (22:43)
[2020-11-17] MEDS ORDERED: PANTOPRAZOLE 40 MG VIAL IV STA (22:44)
[2020-11-17] MEDS: AZITHROMYCIN INJ 500 MG in SODIUM CHLORIDE 0.9% 250 ML IV SCH (23:46)
[2020-11-18] MEDS: NITROGLYCERIN SL 0.4 MG TABLET SL PRN ×2 (01:45→11:43)
[2020-11-18 05:28] LABS: Basophils % 0.5 % (0.0-0.8); Eosinophils # 0.1 10*3/uL (0.0-0.87); Hematocrit 32.6 VOL% (35.7-47.0); Hemoglobin 10.1 GM/DL (12.0-16.0); Immature Granulocytes % 1.5 %; Immature Granulocytes Absolute 0.06 #; Lymphocytes # 1.1 10*3/uL (1.4-4.0); Lymphocytes % 28.6 % (21.3-54.2); Mean Platelet Volume 11.4 FL (9.6-12.0); Monocytes % 11.1 % (1.7-12.7); Neutrophils % 55.3 % (38.7-73.9); Platelet Count 123 T/CUMM (130-400); Red Blood Count 3.88 MC/CUMM (3.8-5.5); Red Cell Distribution Width 16.1 % (9.3-17.3)
[2020-11-18 05:48] LABS: Calcium 8.9 MG/DL (8.5-10.1); Osmolality,Calculated 282.5 MOS/KG (273-304); Potassium 4.1 MMOL/L (3.5-5.1)
[2020-11-18] MEDS: gemfibroziL 600 MG TABLET PO SCH ×2 (07:07→15:48)
[2020-11-18] MEDS: INSULIN LISPRO 100 UNIT/ML SUBCUT SCH ×4 (08:31→20:37)
[2020-11-18] MEDS: CARBIDOPA/LEVODOPA 10-100 MG TABLET PO SCH ×3 (08:58→21:16)
[2020-11-18] MEDS: ISOSORBIDE MONONITRATE 30 MG TABLET PO SCH (08:59)
[2020-11-18] MEDS: BISACODYL 5 MG TABLET PO SCH (08:59)
[2020-11-18] MEDS: LOSARTAN 50 MG TABLET PO SCH (08:59)
[2020-11-18] MEDS ORDERED: amLODIPine 5 MG TABLET PO SCH (09:00)
[2020-11-18] MEDS: METOPROLOL SUCCINATE XL 25 MG TABLET PO SCH (09:00)
[2020-11-18] MEDS ORDERED: CLOPIDOGREL 75 MG TABLET PO SCH (09:00)
[2020-11-18] MEDS: SPIRONOLACTONE 25 MG TABLET PO SCH (09:00)
[2020-11-18] MEDS: ENOXAPARIN 40 MG/0.4 ML SYRINGE SUBCUT SCH (09:01)
[2020-11-18] MEDS: FERROUS SULFATE 300 MG/5 ML UDCUP PO SCH (09:01)
[2020-11-18] MEDS: PANTOPRAZOLE 40 MG VIAL IV SCH (09:01)
[2020-11-18] MEDS: cefTRIAXone 1,000 MG in SODIUM CHLORIDE 0.9% 100 ML IV SCH (09:05)
[2020-11-18] MEDS: GABAPENTIN 100 MG CAPSULE PO SCH ×2 (14:28→20:37)
[2020-11-18] MEDS: RANOLAZINE 500 MG TABLET PO SCH ×2 (14:28→20:37)
[2020-11-18] MEDS: FUROSEMIDE 20 MG TABLET PO SCH (15:48)
[2020-11-18] MEDS: ASPIRIN CHEW 81 MG TABLET PO SCH (20:37)
[2020-11-18] MEDS: ROSUVASTATIN 20 MG TABLET PO SCH (20:37)
[2020-11-18] MEDS: ZALEPLON 5 MG CAPSULE PO PRN (21:16)
[2020-11-18] MEDS: AZITHROMYCIN INJ 500 MG in SODIUM CHLORIDE 0.9% 250 ML IV SCH (23:44)
[2020-11-19] MEDS: NITROGLYCERIN SL 0.4 MG TABLET SL PRN ×4 (03:53→13:17)
[2020-11-19 04:04] LABS: Basophils % 0.5 % (0.0-0.8); Eosinophils # 0.1 10*3/uL (0.0-0.87); Eosinophils % 2.5 % (0.00-10.9); Hematocrit 35.7 VOL% (35.7-47.0); Hemoglobin 10.9 GM/DL (12.0-16.0); Immature Granulocytes % 1.6 %; Immature Granulocytes Absolute 0.09 #; Lymphocytes # 1.6 10*3/uL (1.4-4.0); Lymphocytes % 29.3 % (21.3-54.2); Mean Corpuscular HGB Conc 30.5 GM/DL (32-36); Mean Corpuscular Volume 83.8 FL (87-102); Mean Platelet Volume 10.9 FL (9.6-12.0); Monocytes % 11.5 % (1.7-12.7); Neutrophils % 54.6 % (38.7-73.9); Platelet Count 147 T/CUMM (130-400); Red Blood Count 4.26 MC/CUMM (3.8-5.5); Red Cell Distribution Width 16.1 % (9.3-17.3)
[2020-11-19 04:07] LABS: White Blood Count 5.6 T/CUMM (4-12)
[2020-11-19] MEDS: MORPHINE 4 MG/1 ML VIAL IV PRN ×2 (04:12→21:22)
[2020-11-19 04:21] LABS: Calcium 9.2 MG/DL (8.5-10.1); Osmolality,Calculated 284.4 MOS/KG (273-304); Potassium 4.4 MMOL/L (3.5-5.1)
[2020-11-19 04:22] LABS: Hypochromasia 1+; Microcytosis 1+; Platelet Estimate Adequate
[2020-11-19 04:23] LABS: Risk Ratio 4.97; VLDL CHOLESTEROL 45.4 MG/DL
[2020-11-19] MEDS: ONDANSETRON 4 MG/2 ML VIAL IV PRN ×2 (05:03→20:23)
[2020-11-19] MEDS: gemfibroziL 600 MG TABLET PO SCH ×2 (09:07→17:23)
[2020-11-19] MEDS: CARBIDOPA/LEVODOPA 10-100 MG TABLET PO SCH ×3 (09:08→22:27)
[2020-11-19] MEDS: ENOXAPARIN 40 MG/0.4 ML SYRINGE SUBCUT SCH (09:08)
[2020-11-19] MEDS: FERROUS SULFATE 300 MG/5 ML UDCUP PO SCH (09:08)
[2020-11-19] MEDS: BISACODYL 5 MG TABLET PO SCH (09:09)
[2020-11-19] MEDS: GABAPENTIN 100 MG CAPSULE PO SCH ×3 (09:09→22:27)
[2020-11-19] MEDS: RANOLAZINE 500 MG TABLET PO SCH ×2 (09:09→22:29)
[2020-11-19] MEDS: METOPROLOL SUCCINATE XL 25 MG TABLET PO SCH (09:10)
[2020-11-19] MEDS: ISOSORBIDE MONONITRATE 30 MG TABLET PO SCH (09:10)
[2020-11-19] MEDS: LOSARTAN 50 MG TABLET PO SCH (09:10)
[2020-11-19] MEDS: FUROSEMIDE 20 MG TABLET PO SCH ×2 (09:10→15:09)
[2020-11-19] MEDS: SPIRONOLACTONE 25 MG TABLET PO SCH (09:11)
[2020-11-19] MEDS: PANTOPRAZOLE 40 MG VIAL IV SCH (09:11)
[2020-11-19] MEDS: cefTRIAXone 1,000 MG in SODIUM CHLORIDE 0.9% 100 ML IV SCH (09:11)
[2020-11-19] MEDS: INSULIN LISPRO 100 UNIT/ML SUBCUT SCH ×4 (10:36→22:34)
[2020-11-19] MEDS: ACETAMINOPHEN 325 MG TABLET PO PRN (18:13)
[2020-11-19] MEDS: ROSUVASTATIN 20 MG TABLET PO SCH (22:27)
[2020-11-19] MEDS: ASPIRIN CHEW 81 MG TABLET PO SCH (22:28)
[2020-11-20] MEDS: AZITHROMYCIN INJ 500 MG in SODIUM CHLORIDE 0.9% 250 ML IV SCH (00:28)
[2020-11-20] MEDS: MORPHINE 4 MG/1 ML VIAL IV PRN ×2 (02:01→22:03)
[2020-11-20] MEDS: ONDANSETRON 4 MG/2 ML VIAL IV PRN ×2 (02:02→20:28)
[2020-11-20 05:58] LABS: Basophils % 0.2 % (0.0-0.8); Eosinophils # 0.1 10*3/uL (0.0-0.87); Eosinophils % 1.9 % (0.00-10.9); Hematocrit 34.9 VOL% (35.7-47.0); Hemoglobin 11.3 GM/DL (12.0-16.0); Immature Granulocytes % 1.2 %; Immature Granulocytes Absolute 0.06 #; Lymphocytes # 1.4 10*3/uL (1.4-4.0); Lymphocytes % 29.5 % (21.3-54.2); Mean Corpuscular HGB Conc 32.4 GM/DL (32-36); Mean Corpuscular Volume 82.3 FL (87-102); Mean Platelet Volume 11.8 FL (9.6-12.0); Monocytes % 12.2 % (1.7-12.7); Platelet Count 128 T/CUMM (130-400); Red Blood Count 4.24 MC/CUMM (3.8-5.5); Red Cell Distribution Width 15.9 % (9.3-17.3); White Blood Count 4.9 T/CUMM (4-12)
[2020-11-20 06:36] LABS: Calcium 9.1 MG/DL (8.5-10.1); Osmolality,Calculated 277.1 MOS/KG (273-304); Potassium 3.4 MMOL/L (3.5-5.1)
[2020-11-20] MEDS ORDERED: POTASSIUM CHLORIDE 20 MEQ TABLET PO ONE (08:16)
[2020-11-20] MEDS: INSULIN LISPRO 100 UNIT/ML SUBCUT SCH ×4 (09:17→20:31)
[2020-11-20] MEDS: gemfibroziL 600 MG TABLET PO SCH ×2 (09:18→16:29)
[2020-11-20] MEDS: FERROUS SULFATE 300 MG/5 ML UDCUP PO SCH (09:18)
[2020-11-20] MEDS: SPIRONOLACTONE 25 MG TABLET PO SCH (09:19)
[2020-11-20] MEDS: FUROSEMIDE 20 MG TABLET PO SCH ×2 (09:19→15:11)
[2020-11-20] MEDS: RANOLAZINE 500 MG TABLET PO SCH ×2 (09:19→21:58)
[2020-11-20] MEDS: BISACODYL 5 MG TABLET PO SCH (09:19)
[2020-11-20] MEDS: LOSARTAN 50 MG TABLET PO SCH (09:19)
[2020-11-20] MEDS: CARBIDOPA/LEVODOPA 10-100 MG TABLET PO SCH ×3 (09:20→21:58)
[2020-11-20] MEDS: ISOSORBIDE MONONITRATE 30 MG TABLET PO SCH (09:20)
[2020-11-20] MEDS: METOPROLOL SUCCINATE XL 25 MG TABLET PO SCH (09:20)
[2020-11-20] MEDS: ENOXAPARIN 40 MG/0.4 ML SYRINGE SUBCUT SCH (09:20)
[2020-11-20] MEDS: GABAPENTIN 100 MG CAPSULE PO SCH ×3 (09:20→21:56)
[2020-11-20] MEDS: PANTOPRAZOLE 40 MG VIAL IV SCH (09:21)
[2020-11-20] MEDS: cefTRIAXone 1,000 MG in SODIUM CHLORIDE 0.9% 100 ML IV SCH (09:21)
[2020-11-20] MEDS ORDERED: ALPRAZolam 0.25 MG TABLET PO PRN (12:05)
[2020-11-20] MEDS: ACETAMINOPHEN 325 MG TABLET PO PRN (12:27)
[2020-11-20] MEDS ORDERED: metFORMIN 500 MG TABLET PO SCH (13:00)
[2020-11-20] MEDS: levETIRAcetam 500 MG TABLET PO SCH ×2 (13:04→21:56)
[2020-11-20] MEDS: SULFAMETHOX/TRIMETHOPRIM 800-160 MG TABLET PO SCH ×2 (16:30→21:58)
[2020-11-20] MEDS: ROSUVASTATIN 20 MG TABLET PO SCH (21:57)
[2020-11-20] MEDS: ZALEPLON 5 MG CAPSULE PO PRN (21:59)
[2020-11-20] MEDS: ASPIRIN CHEW 81 MG TABLET PO SCH (21:59)
[2020-11-21] MEDS: ONDANSETRON 4 MG/2 ML VIAL IV PRN (02:15)
[2020-11-21] MEDS: MORPHINE 4 MG/1 ML VIAL IV PRN (02:16)
[2020-11-21 08:06] VITALS: BP 147/70
[2020-11-21] MEDS: METOPROLOL SUCCINATE XL 25 MG TABLET PO SCH (09:51)
[2020-11-21] MEDS: CARBIDOPA/LEVODOPA 10-100 MG TABLET PO SCH (09:51)
[2020-11-21] MEDS: RANOLAZINE 500 MG TABLET PO SCH (09:51)
[2020-11-21] MEDS: BISACODYL 5 MG TABLET PO SCH (09:51)
[2020-11-21] MEDS: gemfibroziL 600 MG TABLET PO SCH (09:51)
[2020-11-21] MEDS: ISOSORBIDE MONONITRATE 30 MG TABLET PO SCH (09:51)
[2020-11-21] MEDS: INSULIN LISPRO 100 UNIT/ML SUBCUT SCH ×2 (09:52→12:59)
[2020-11-21] MEDS: LOSARTAN 50 MG TABLET PO SCH (09:52)
[2020-11-21] MEDS: SULFAMETHOX/TRIMETHOPRIM 800-160 MG TABLET PO SCH (09:52)
[2020-11-21] MEDS: GABAPENTIN 100 MG CAPSULE PO SCH (09:52)
[2020-11-21] MEDS: SPIRONOLACTONE 25 MG TABLET PO SCH (09:52)
[2020-11-21] MEDS: FUROSEMIDE 20 MG TABLET PO SCH (09:52)
[2020-11-21] MEDS: levETIRAcetam 500 MG TABLET PO SCH (09:52)
[2020-11-21] MEDS: PANTOPRAZOLE 40 MG VIAL IV SCH (09:53)
[2020-11-21] MEDS: ENOXAPARIN 40 MG/0.4 ML SYRINGE SUBCUT SCH (09:53)
[2020-11-21] MEDS: FERROUS SULFATE 300 MG/5 ML UDCUP PO SCH (10:08)
== END 2020-11-21 12:15 | disposition home health service (06) | DRG 880 ==
LOC: N.ED 16:26 → N.EDINP 16:26 → N.TELEN 23:58
PROVIDERS: ADMIT Internal Medicine; ATTEND Internal Medicine

== ENCOUNTER 2021-05-07 14:42 | Observation (INO) ==
[2021-05-07 15:27] LABS: Basophils % 0.2 % (0.0-0.8); Eosinophils % 0.5 % (0.00-10.9); Hematocrit 35.5 VOL% (35.7-47.0); Hemoglobin 11.4 GM/DL (12.0-16.0); Immature Granulocytes % 0.7 %; Immature Granulocytes Absolute 0.04 #; Lymphocytes # 1.4 10*3/uL (1.4-4.0); Lymphocytes % 24.4 % (21.3-54.2); Mean Corpuscular HGB Conc 32.1 GM/DL (32-36); Mean Corpuscular Volume 84.3 FL (87-102); Monocytes % 9.5 % (1.7-12.7); Neutrophils % 64.7 % (38.7-73.9); Platelet Count 148 T/CUMM (130-400); Red Blood Count 4.21 MC/CUMM (3.8-5.5); Red Cell Distribution Width 13.8 % (9.3-17.3); White Blood Count 5.8 T/CUMM (4-12)
[2021-05-07 15:42] LABS: Albumin 4.1 G/DL (3.4-5.0); Bilirubin,Total 0.8 MG/DL (0.20-1.00); Calcium 8.9 MG/DL (8.5-10.1); Osmolality,Calculated 279.4 MOS/KG (273-304); Potassium 3.3 MMOL/L (3.5-5.1); Total Protein 7.2 G/DL (6.4-8.2)
[2021-05-07] MEDS ORDERED: ASPIRIN 325 MG TABLET PO STA (16:20)
[2021-05-07] MEDS ORDERED: MORPHINE 10 MG/1 ML VIAL IV STA (16:21)
[2021-05-07] MEDS ORDERED: ONDANSETRON 4 MG/2 ML VIAL IV STA (16:21)
[2021-05-07 16:49] LABS: Albumin 4.1 G/DL (3.4-5.0); Bilirubin,Total 0.8 MG/DL (0.20-1.00); Osmolality,Calculated 281.3 MOS/KG (273-304); Potassium 3.3 MMOL/L (3.5-5.1); Total Protein 7.1 G/DL (6.4-8.2)
[2021-05-07] MEDS ORDERED: MORPHINE 2 MG/1 ML SYRINGE ONE (16:50)
[2021-05-07] MEDS ORDERED: ENOXAPARIN 80 MG/0.8 ML SYRINGE SUBCUT STA (16:51)
[2021-05-07] MEDS ORDERED: ONDANSETRON 4 MG/2 ML VIAL IV PRN (17:08)
[2021-05-07] MEDS ORDERED: DOCUSATE SODIUM 100 MG CAPSULE PO PRN (17:08)
[2021-05-07] MEDS ORDERED: GLUCAGON 1 MG VIAL IM PRN (17:08)
[2021-05-07] MEDS ORDERED: MAGNESIUM SULF RIDER 2 GM/50 ML PREMIX IV PRN (17:19)
[2021-05-07] MEDS ORDERED: MAGNESIUM SULF RIDER 4 GM/100 ML PREMIX IV PRN (17:19)
[2021-05-07 17:45] LABS: Risk Ratio 2.98; Thyroid Stimulating Hormone 0.803 uIU/ml (0.358-3.74); VLDL Cholesterol 33.2 MG/DL
[2021-05-07] MEDS ORDERED: DEXTROSE 50% 25 GM/50 ML SYRINGE IV PRN (18:00)
[2021-05-07] MEDS: NITROGLYCERIN SL 0.4 MG TABLET SL PRN ×2 (19:33→19:48)
[2021-05-07] MEDS: GABAPENTIN 300 MG CAPSULE PO SCH (21:01)
[2021-05-07] MEDS: ROSUVASTATIN 20 MG TABLET PO SCH (21:01)
[2021-05-07] MEDS: RANOLAZINE 500 MG TABLET PO SCH (21:01)
[2021-05-07] MEDS: CARBIDOPA/LEVODOPA CR 25-100 MG TABLET PO SCH (21:02)
[2021-05-07] MEDS: INSULIN LISPRO 100 UNIT/ML SUBCUT SCH (22:28)
[2021-05-07] MEDS: ASPIRIN CHEW 81 MG TABLET PO SCH (22:55)
[2021-05-07] MEDS: MORPHINE 2 MG/1 ML SYRINGE IV PRN (23:00)
[2021-05-08] MEDS ORDERED: INFLUENZA VIRUS VACCINE 0.5 ML SYRINGE IM ONE (00:32)
[2021-05-08 05:21] LABS: Basophils % 0.3 % (0.0-0.8); Hematocrit 33.1 VOL% (35.7-47.0); Hemoglobin 10.2 GM/DL (12.0-16.0); Immature Granulocytes % 0.3 %; Immature Granulocytes Absolute 0.01 #; Lymphocytes # 1.5 10*3/uL (1.4-4.0); Lymphocytes % 36.5 % (21.3-54.2); Mean Corpuscular HGB Conc 30.8 GM/DL (32-36); Mean Corpuscular Volume 87.3 FL (87-102); Monocytes % 11.5 % (1.7-12.7); Neutrophils % 50.4 % (38.7-73.9); Platelet Count 130 T/CUMM (130-400); Red Blood Count 3.79 MC/CUMM (3.8-5.5); Red Cell Distribution Width 14.1 % (9.3-17.3)
[2021-05-08 05:39] LABS: Calcium 8.6 MG/DL (8.5-10.1); Osmolality,Calculated 284.1 MOS/KG (273-304); Potassium 3.4 MMOL/L (3.5-5.1)
[2021-05-08] MEDS: MORPHINE 2 MG/1 ML SYRINGE IV PRN (07:18)
[2021-05-08] MEDS: INSULIN LISPRO 100 UNIT/ML SUBCUT SCH ×4 (07:48→21:59)
[2021-05-08] MEDS: CLOPIDOGREL 75 MG TABLET PO SCH (11:02)
[2021-05-08] MEDS: GABAPENTIN 300 MG CAPSULE PO SCH ×2 (11:02→20:52)
[2021-05-08] MEDS: PANTOPRAZOLE 40 MG TABLET PO SCH (11:02)
[2021-05-08] MEDS: FUROSEMIDE 20 MG TABLET PO SCH (11:02)
[2021-05-08] MEDS: METOPROLOL SUCCINATE XL 25 MG TABLET PO SCH (11:03)
[2021-05-08] MEDS: SERTRALINE 100 MG TABLET PO SCH (11:03)
[2021-05-08] MEDS: RANOLAZINE 500 MG TABLET PO SCH ×2 (11:03→20:51)
[2021-05-08] MEDS: ACETAMINOPHEN 325 MG TABLET PO PRN (16:15)
[2021-05-08] MEDS ORDERED: ENOXAPARIN 40 MG/0.4 ML SYRINGE SUBCUT SCH (17:00)
[2021-05-08] MEDS: ROSUVASTATIN 20 MG TABLET PO SCH (20:53)
[2021-05-08] MEDS: ASPIRIN CHEW 81 MG TABLET PO SCH (20:53)
[2021-05-08] MEDS: CARBIDOPA/LEVODOPA CR 25-100 MG TABLET PO SCH (20:53)
[2021-05-09] MEDS: ACETAMINOPHEN 325 MG TABLET PO PRN (03:52)
[2021-05-09] MEDS: INSULIN LISPRO 100 UNIT/ML SUBCUT SCH (07:21)
[2021-05-09 08:01] VITALS: BP 151/66
[2021-05-09] MEDS: FUROSEMIDE 20 MG TABLET PO SCH (08:35)
[2021-05-09] MEDS: SERTRALINE 100 MG TABLET PO SCH (08:35)
[2021-05-09] MEDS: RANOLAZINE 500 MG TABLET PO SCH (08:35)
[2021-05-09] MEDS: PANTOPRAZOLE 40 MG TABLET PO SCH (08:35)
[2021-05-09] MEDS: GABAPENTIN 300 MG CAPSULE PO SCH (08:36)
[2021-05-09] MEDS: CLOPIDOGREL 75 MG TABLET PO SCH (08:36)
[2021-05-09] MEDS: METOPROLOL SUCCINATE XL 25 MG TABLET PO SCH (08:36)
[2021-05-09] MEDS ORDERED: ISOSORBIDE MONONITRATE 60 MG TABLET PO SCH (09:00)
[2021-05-09] MEDS ORDERED: SPIRONOLACTONE 25 MG TABLET PO SCH (09:00)
[2021-05-09] MEDS ORDERED: ONDANSETRON 4 MG TABLET PO ONE (10:57)
== END 2021-05-09 11:24 | disposition home health service (06) ==
LOC: N.EDINP 14:42 → N.ED 14:42 → N.TELES 18:25
PROVIDERS: ADMIT Emergency Medicine; ATTEND Emergency Medicine

== ENCOUNTER 2021-05-13 14:26 | Observation (INO) ==
[2021-05-13] MEDS ORDERED: MORPHINE 2 MG/1 ML SYRINGE IV STA (22:27)
[2021-05-13] MEDS ORDERED: ENOXAPARIN 100 MG/ML SYRINGE SUBCUT STA (22:27)
[2021-05-13] MEDS ORDERED: ASPIRIN 325 MG TABLET PO STA (22:27)
[2021-05-13] MEDS ORDERED: ALUM/MAG/SIMETH/LIDO VISC 1:1 30 ML BOTTLE PO STA (22:27)
[2021-05-13] MEDS ORDERED: ONDANSETRON 4 MG/2 ML VIAL IV STA (22:27)
[2021-05-13] MEDS ORDERED: NITROGLYCERIN 2% OINT 1 INCH/GM PACK TOP STA (22:27)
[2021-05-13 23:01] LABS: Basophils % 0.4 % (0.0-0.8); Eosinophils # 0.1 10*3/uL (0.0-0.87); Eosinophils % 1.7 % (0.00-10.9); Hematocrit 36.5 VOL% (35.7-47.0); Hemoglobin 11.6 GM/DL (12.0-16.0); Immature Granulocytes % 0.7 %; Immature Granulocytes Absolute 0.04 #; Lymphocytes # 1.5 10*3/uL (1.4-4.0); Lymphocytes % 27.5 % (21.3-54.2); Mean Corpuscular HGB Conc 31.8 GM/DL (32-36); Mean Corpuscular Volume 85.3 FL (87-102); Mean Platelet Volume 10.9 FL (9.6-12.0); Monocytes % 9.8 % (1.7-12.7); Neutrophils % 59.9 % (38.7-73.9); Platelet Count 136 T/CUMM (130-400); Red Blood Count 4.28 MC/CUMM (3.8-5.5); Red Cell Distribution Width 13.8 % (9.3-17.3); White Blood Count 5.4 T/CUMM (4-12)
[2021-05-13 23:09] LABS: PT Patient Result 11.2 SECS (10.5-12.0)
[2021-05-13 23:30] LABS: Bilirubin,Total 0.6 MG/DL (0.20-1.00); Calcium 9.4 MG/DL (8.5-10.1); Osmolality,Calculated 285.1 MOS/KG (273-304); Potassium 3.1 MMOL/L (3.5-5.1); Total Protein 7.4 G/DL (6.4-8.2)
[2021-05-13] MEDS ORDERED: MAGNESIUM CHLORIDE 64 MG TABLET PO STA (23:38)
[2021-05-13] MEDS ORDERED: POTASSIUM CHLORIDE 20 MEQ TABLET PO STA (23:38)
[2021-05-14] MEDS ORDERED: PROMETHAZINE 25 MG/1 ML VIAL ONE (00:09)
[2021-05-14] MEDS ORDERED: PROMETHAZINE 25 MG/1 ML VIAL IM STA (00:22)
[2021-05-14] MEDS ORDERED: hydrALAZINE 20 MG/1 ML VIAL IV PRN (00:55)
[2021-05-14] MEDS ORDERED: ONDANSETRON 4 MG/2 ML VIAL IV PRN (00:55)
[2021-05-14] MEDS ORDERED: DEXTROSE 50% 25 GM/50 ML SYRINGE IV PRN (00:55)
[2021-05-14] MEDS ORDERED: GLUCAGON 1 MG VIAL IM PRN (00:55)
[2021-05-14] MEDS ORDERED: ACETAMINOPHEN 325 MG TABLET PO PRN (00:55)
[2021-05-14] MEDS ORDERED: PROMETHAZINE 25 MG/1 ML VIAL IV PRN (00:55)
[2021-05-14] MEDS ORDERED: POTASSIUM CHLORIDE RIDER 10 MEQ/100 ML PREMIX IV PRN (00:55)
[2021-05-14] MEDS ORDERED: MAGNESIUM SULF RIDER 4 GM/100 ML PREMIX IV PRN (01:01)
[2021-05-14] MEDS ORDERED: MAGNESIUM SULF RIDER 2 GM/50 ML PREMIX IV PRN (01:01)
[2021-05-14] MEDS: MORPHINE 2 MG/1 ML SYRINGE IV PRN ×2 (02:36→05:53)
[2021-05-14 06:17] LABS: Basophils % 0.2 % (0.0-0.8); Eosinophils # 0.1 10*3/uL (0.0-0.87); Eosinophils % 1.4 % (0.00-10.9); Hematocrit 32.6 VOL% (35.7-47.0); Hemoglobin 10.3 GM/DL (12.0-16.0); Immature Granulocytes % 0.4 %; Immature Granulocytes Absolute 0.02 #; Lymphocytes # 1.4 10*3/uL (1.4-4.0); Mean Corpuscular HGB Conc 31.6 GM/DL (32-36); Mean Corpuscular Volume 85.3 FL (87-102); Mean Platelet Volume 11.2 FL (9.6-12.0); Monocytes % 10.1 % (1.7-12.7); Neutrophils % 58.9 % (38.7-73.9); Platelet Count 126 T/CUMM (130-400); Red Blood Count 3.82 MC/CUMM (3.8-5.5); Red Cell Distribution Width 13.9 % (9.3-17.3)
[2021-05-14 06:29] LABS: Calcium 8.7 MG/DL (8.5-10.1); Osmolality,Calculated 284.1 MOS/KG (273-304); Potassium 3.7 MMOL/L (3.5-5.1)
[2021-05-14] MEDS ORDERED: FUROSEMIDE 20 MG TABLET PO SCH (09:00)
[2021-05-14] MEDS ORDERED: ISOSORBIDE MONONITRATE 30 MG TABLET PO SCH (09:00)
[2021-05-14] MEDS ORDERED: ENOXAPARIN 80 MG/0.8 ML SYRINGE SUBCUT SCH ×2 (09:00→10:00)
[2021-05-14] MEDS ORDERED: CLOPIDOGREL 75 MG TABLET PO SCH (09:00)
[2021-05-14] MEDS ORDERED: SPIRONOLACTONE 25 MG TABLET PO SCH (09:00)
[2021-05-14] MEDS ORDERED: METOPROLOL SUCCINATE XL 25 MG TABLET PO SCH (09:00)
[2021-05-14] MEDS ORDERED: RANOLAZINE 500 MG TABLET PO SCH (09:00)
[2021-05-14] MEDS ORDERED: PANTOPRAZOLE 40 MG TABLET PO SCH (09:00)
[2021-05-14] MEDS ORDERED: POTASSIUM CHLORIDE 20 MEQ TABLET PO SCH (09:00)
[2021-05-14] MEDS ORDERED: KETOROLAC 30 MG/1 ML VIAL IV ONE (09:27)
[2021-05-14 12:25] VITALS: BP 121/78
[2021-05-14] MEDS ORDERED: ASPIRIN CHEW 81 MG TABLET PO SCH (21:00)
[2021-05-14] MEDS ORDERED: ROSUVASTATIN 20 MG TABLET PO SCH (21:00)
== END 2021-05-14 12:01 | disposition home or self-care (01) ==
LOC: N.ED 14:26 → N.EDINP 14:26
PROVIDERS: ADMIT Internal Medicine; ATTEND Internal Medicine

== ENCOUNTER 2021-05-21 10:49 | Inpatient (IN) ==
[2021-05-21] MEDS ORDERED: ASPIRIN 325 MG TABLET PO STA (11:18)
[2021-05-21] MEDS ORDERED: ASPIRIN 325 MG TABLET ONE (11:29)
[2021-05-21 11:34] LABS: Basophils % 0.3 % (0.0-0.8); Eosinophils # 0.1 10*3/uL (0.0-0.87); Eosinophils % 0.9 % (0.00-10.9); Hematocrit 38.9 VOL% (35.7-47.0); Hemoglobin 12.2 GM/DL (12.0-16.0); Immature Granulocytes % 1.1 %; Immature Granulocytes Absolute 0.07 #; Lymphocytes # 1.3 10*3/uL (1.4-4.0); Lymphocytes % 19.9 % (21.3-54.2); Mean Corpuscular HGB Conc 31.4 GM/DL (32-36); Mean Corpuscular Volume 86.1 FL (87-102); Mean Platelet Volume 11.2 FL (9.6-12.0); Monocytes % 10.1 % (1.7-12.7); Neutrophils % 67.7 % (38.7-73.9); Platelet Count 158 T/CUMM (130-400); Red Blood Count 4.52 MC/CUMM (3.8-5.5); White Blood Count 6.3 T/CUMM (4-12)
[2021-05-21] MEDS ORDERED: KETOROLAC 30 MG/1 ML VIAL ONE (11:35)
[2021-05-21] MEDS ORDERED: KETOROLAC 30 MG/1 ML VIAL IV STA (11:45)
[2021-05-21 12:12] LABS: Albumin 4.2 G/DL (3.4-5.0); Bilirubin,Total 0.9 MG/DL (0.20-1.00); Calcium 9.3 MG/DL (8.5-10.1); Osmolality,Calculated 276.8 MOS/KG (273-304); Total Protein 7.8 G/DL (6.4-8.2)
[2021-05-21] MEDS ORDERED: ONDANSETRON 4 MG/2 ML VIAL ONE (12:35)
[2021-05-21] MEDS ORDERED: ONDANSETRON 4 MG/2 ML VIAL IV ONE (12:36)
[2021-05-21] MEDS ORDERED: ACETAMINOPHEN 325 MG TABLET PO PRN (15:46)
[2021-05-21] MEDS ORDERED: DEXTROSE 50% 25 GM/50 ML SYRINGE IV PRN ×2 (15:46)
[2021-05-21] MEDS ORDERED: ONDANSETRON 4 MG/2 ML VIAL IV PRN (15:46)
[2021-05-21] MEDS ORDERED: GLUCAGON 1 MG VIAL IM PRN (15:46)
[2021-05-21] MEDS ORDERED: NITROGLYCERIN SL 0.4 MG TABLET SL PRN (16:29)
[2021-05-21] MEDS ORDERED: gemfibroziL 600 MG TABLET PO SCH (16:30)
[2021-05-21] MEDS ORDERED: KETOROLAC 10 MG TABLET ONE (18:37)
[2021-05-21] MEDS: KETOROLAC 10 MG TABLET PO PRN (18:40)
[2021-05-21] MEDS: INSULIN REGULAR 100 UNIT/ML SUBCUT SCH ×2 (19:09→20:13)
[2021-05-21] MEDS: RANOLAZINE 500 MG TABLET PO SCH (20:13)
[2021-05-21] MEDS: risperiDONE 1 MG TABLET PO SCH (20:14)
[2021-05-21] MEDS: GABAPENTIN 300 MG CAPSULE PO SCH (20:14)
[2021-05-21] MEDS: gemfibroziL 600 MG TABLET PO SCH (20:14)
[2021-05-21] MEDS: ROSUVASTATIN 20 MG TABLET PO SCH (20:14)
[2021-05-21] MEDS: PRAMIPEXOLE 0.25 MG TABLET PO SCH (20:14)
[2021-05-21] MEDS ORDERED: CARBIDOPA/LEVODOPA CR 25-100 MG TABLET PO SCH (21:00)
[2021-05-22] MEDS: KETOROLAC 10 MG TABLET PO PRN ×3 (03:00→17:19)
[2021-05-22 05:47] LABS: Basophils % 0.2 % (0.0-0.8); Eosinophils # 0.1 10*3/uL (0.0-0.87); Eosinophils % 1.6 % (0.00-10.9); Hematocrit 33.7 VOL% (35.7-47.0); Hemoglobin 10.1 GM/DL (12.0-16.0); Immature Granulocytes % 0.8 %; Immature Granulocytes Absolute 0.04 #; Lymphocytes # 1.2 10*3/uL (1.4-4.0); Mean Corpuscular Volume 87.1 FL (87-102); Mean Platelet Volume 11.4 FL (9.6-12.0); Monocytes % 11.8 % (1.7-12.7); Neutrophils % 62.6 % (38.7-73.9); Platelet Count 131 T/CUMM (130-400); Red Blood Count 3.87 MC/CUMM (3.8-5.5)
[2021-05-22 06:11] LABS: Risk Ratio 3.67; VLDL Cholesterol 45.2 MG/DL
[2021-05-22 06:35] LABS: Albumin 3.2 G/DL (3.4-5.0); Bilirubin,Total 0.5 MG/DL (0.20-1.00); Calcium 8.7 MG/DL (8.5-10.1); Osmolality,Calculated 287.1 MOS/KG (273-304); Potassium 4.1 MMOL/L (3.5-5.1); Total Protein 6.1 G/DL (6.4-8.2)
[2021-05-22] MEDS: INSULIN REGULAR 100 UNIT/ML SUBCUT SCH ×4 (10:39→20:59)
[2021-05-22] MEDS: SERTRALINE 100 MG TABLET PO SCH (10:39)
[2021-05-22] MEDS: PRAMIPEXOLE 0.25 MG TABLET PO SCH ×3 (10:39→20:58)
[2021-05-22] MEDS: ASPIRIN 325 MG TABLET PO SCH (10:39)
[2021-05-22] MEDS: RANOLAZINE 500 MG TABLET PO SCH ×2 (10:39→20:58)
[2021-05-22] MEDS: SPIRONOLACTONE 25 MG TABLET PO SCH (10:40)
[2021-05-22] MEDS: FUROSEMIDE 20 MG TABLET PO SCH (10:40)
[2021-05-22] MEDS: METOPROLOL SUCCINATE XL 25 MG TABLET PO SCH (10:40)
[2021-05-22] MEDS: PANTOPRAZOLE 40 MG TABLET PO SCH (10:40)
[2021-05-22] MEDS: GABAPENTIN 300 MG CAPSULE PO SCH ×2 (10:40→20:58)
[2021-05-22] MEDS: gemfibroziL 600 MG TABLET PO SCH ×2 (10:40→16:21)
[2021-05-22] MEDS: POTASSIUM CHLORIDE 10 MEQ TABLET PO SCH (10:41)
[2021-05-22] MEDS: CLOPIDOGREL 75 MG TABLET PO SCH (10:41)
[2021-05-22] MEDS: ISOSORBIDE MONONITRATE 60 MG TABLET PO SCH (10:41)
[2021-05-22] MEDS: MULTIVITAMIN (CENTRUM) TABLET PO SCH (10:41)
[2021-05-22] MEDS: ROSUVASTATIN 20 MG TABLET PO SCH (20:58)
[2021-05-22] MEDS: risperiDONE 1 MG TABLET PO SCH (20:58)
[2021-05-22] MEDS ORDERED: ENOXAPARIN 40 MG/0.4 ML SYRINGE SUBCUT SCH (21:00)
[2021-05-23] MEDS: KETOROLAC 10 MG TABLET PO PRN ×3 (00:10→12:43)
[2021-05-23 06:04] LABS: Basophils % 0.2 % (0.0-0.8); Eosinophils # 0.1 10*3/uL (0.0-0.87); Hematocrit 35.2 VOL% (35.7-47.0); Hemoglobin 10.8 GM/DL (12.0-16.0); Immature Granulocytes % 0.9 %; Immature Granulocytes Absolute 0.04 #; Lymphocytes # 1.4 10*3/uL (1.4-4.0); Mean Corpuscular HGB Conc 30.7 GM/DL (32-36); Mean Corpuscular Volume 86.3 FL (87-102); Monocytes % 10.5 % (1.7-12.7); Neutrophils % 56.4 % (38.7-73.9); Platelet Count 132 T/CUMM (130-400); Red Blood Count 4.08 MC/CUMM (3.8-5.5); Red Cell Distribution Width 13.8 % (9.3-17.3); White Blood Count 4.6 T/CUMM (4-12)
[2021-05-23 06:32] LABS: Calcium 8.8 MG/DL (8.5-10.1); Osmolality,Calculated 279.8 MOS/KG (273-304); Potassium 4.2 MMOL/L (3.5-5.1)
[2021-05-23] MEDS: METOPROLOL SUCCINATE XL 25 MG TABLET PO SCH (10:20)
[2021-05-23] MEDS: ASPIRIN 325 MG TABLET PO SCH (10:20)
[2021-05-23] MEDS: GABAPENTIN 300 MG CAPSULE PO SCH (10:21)
[2021-05-23] MEDS: MULTIVITAMIN (CENTRUM) TABLET PO SCH (10:21)
[2021-05-23] MEDS: RANOLAZINE 500 MG TABLET PO SCH (10:21)
[2021-05-23] MEDS: CARBIDOPA/LEVODOPA 25-100 MG TABLET PO SCH ×2 (10:21→12:43)
[2021-05-23] MEDS: gemfibroziL 600 MG TABLET PO SCH (10:21)
[2021-05-23] MEDS: POTASSIUM CHLORIDE 10 MEQ TABLET PO SCH (10:22)
[2021-05-23] MEDS: ISOSORBIDE MONONITRATE 60 MG TABLET PO SCH (10:22)
[2021-05-23] MEDS: PANTOPRAZOLE 40 MG TABLET PO SCH (10:22)
[2021-05-23] MEDS: CLOPIDOGREL 75 MG TABLET PO SCH (10:22)
[2021-05-23] MEDS: PRAMIPEXOLE 0.25 MG TABLET PO SCH (10:22)
[2021-05-23] MEDS: SPIRONOLACTONE 25 MG TABLET PO SCH (10:22)
[2021-05-23] MEDS: FUROSEMIDE 20 MG TABLET PO SCH (10:23)
[2021-05-23] MEDS: SERTRALINE 100 MG TABLET PO SCH (10:23)
[2021-05-23] MEDS: INSULIN REGULAR 100 UNIT/ML SUBCUT SCH ×2 (10:31→11:41)
[2021-05-23 12:01] VITALS: BP 131/69
[2021-05-27] MEDS ORDERED: ERGOCALCIFEROL 50,000 UNIT CAPSULE PO SCH (09:00)
== END 2021-05-23 13:20 | DRG 57 ==
LOC: N.ED 10:49 → N.5E 10:49 → SUATTDRO 05-22 10:07
PROVIDERS: ADMIT Internal Medicine; ATTEND Internal Medicine

== ENCOUNTER 2021-07-07 16:10 | Inpatient (IN) ==
[2021-07-07 16:49] LABS: Basophils % 0.2 % (0.0-0.8); Eosinophils # 0.1 10*3/uL (0.0-0.87); Eosinophils % 0.9 % (0.00-10.9); Hematocrit 37.7 VOL% (35.7-47.0); Hemoglobin 11.7 GM/DL (12.0-16.0); Immature Granulocytes % 0.9 %; Immature Granulocytes Absolute 0.05 #; Lymphocytes # 1.5 10*3/uL (1.4-4.0); Lymphocytes % 27.9 % (21.3-54.2); Mean Platelet Volume 10.9 FL (9.6-12.0); Monocytes % 10.6 % (1.7-12.7); Neutrophils % 59.5 % (38.7-73.9); Platelet Count 158 T/CUMM (130-400); Red Blood Count 4.49 MC/CUMM (3.8-5.5); Red Cell Distribution Width 14.6 % (9.3-17.3); White Blood Count 5.4 T/CUMM (4-12)
[2021-07-07 17:01] LABS: PT Patient Result 10.9 SECS (10.5-12.0); Partial Thromboplastin Time 26.2 SECS (23.8-32.1)
[2021-07-07 17:22] LABS: Bilirubin,Total 0.4 MG/DL (0.20-1.00); Calcium 9.5 MG/DL (8.5-10.1); Osmolality,Calculated 277.5 MOS/KG (273-304); Potassium 4.5 MMOL/L (3.5-5.1)
[2021-07-07] MEDS ORDERED: ONDANSETRON 4 MG/2 ML VIAL IV ONE (20:56)
[2021-07-07] MEDS ORDERED: MORPHINE 2 MG/1 ML SYRINGE IV STA ×2 (20:56→22:12)
[2021-07-07] MEDS ORDERED: NITROGLYCERIN SL 0.4 MG TABLET SL STA (20:56)
[2021-07-07] MEDS ORDERED: NITROGLYCERIN SL 0.4 MG TABLET SL PRN ×2 (22:12→23:00)
[2021-07-07] MEDS ORDERED: ONDANSETRON 4 MG/2 ML VIAL IV STA (22:12)
[2021-07-07] MEDS ORDERED: ENOXAPARIN 30 MG/0.3 ML SYRINGE SUBCUT STA (22:12)
[2021-07-07] MEDS ORDERED: ENOXAPARIN 80 MG/0.8 ML SYRINGE SUBCUT STA (22:16)
[2021-07-07] MEDS ORDERED: ACETAMINOPHEN 325 MG TABLET PO ONE (22:54)
[2021-07-07] MEDS ORDERED: ASPIRIN CHEW 81 MG TABLET PO ONE (23:00)
[2021-07-07] MEDS ORDERED: GLUCAGON 1 MG VIAL IM PRN (23:00)
[2021-07-07] MEDS ORDERED: DEXTROSE 10% 250 ML BAG IV PRN (23:18)
[2021-07-08 01:21] LABS: Basophils % 0.5 % (0.0-0.8); Eosinophils # 0.1 10*3/uL (0.0-0.87); Eosinophils % 1.3 % (0.00-10.9); Hemoglobin 11.6 GM/DL (12.0-16.0); Immature Granulocytes % 0.7 %; Immature Granulocytes Absolute 0.04 #; Lymphocytes # 1.8 10*3/uL (1.4-4.0); Mean Corpuscular HGB Conc 32.2 GM/DL (32-36); Mean Corpuscular Volume 82.2 FL (87-102); Mean Platelet Volume 10.6 FL (9.6-12.0); Monocytes % 11.4 % (1.7-12.7); Neutrophils % 53.1 % (38.7-73.9); Platelet Count 143 T/CUMM (130-400); Red Blood Count 4.38 MC/CUMM (3.8-5.5); Red Cell Distribution Width 14.7 % (9.3-17.3); White Blood Count 5.5 T/CUMM (4-12)
[2021-07-08 01:30] LABS: PT Patient Result 11.4 SECS (10.5-12.0); Partial Thromboplastin Time 29.9 SECS (23.8-32.1)
[2021-07-08 01:32] LABS: Albumin 3.9 G/DL (3.4-5.0); Bilirubin,Total 0.4 MG/DL (0.20-1.00); Calcium 9.1 MG/DL (8.5-10.1); Osmolality,Calculated 273.1 MOS/KG (273-304); Potassium 4.2 MMOL/L (3.5-5.1); Total Protein 7.2 G/DL (6.4-8.2)
[2021-07-08] MEDS: SODIUM CHLORIDE 0.9% 1,000 ML IV SCH ×2 (02:27→12:51)
[2021-07-08] MEDS: MORPHINE 2 MG/1 ML SYRINGE IV PRN ×3 (02:27→12:29)
[2021-07-08] MEDS: GABAPENTIN 300 MG CAPSULE PO SCH ×3 (02:27→21:17)
[2021-07-08] MEDS ORDERED: DEXTROSE 50% 25 GM/50 ML VIAL IV PRN (03:07)
[2021-07-08] MEDS: ONDANSETRON 4 MG/2 ML VIAL IV PRN ×2 (06:14→16:38)
[2021-07-08 07:43] LABS: HDL Cholesterol 33 MG/DL (40-60); Risk Ratio 5.27; Triglycerides 316 MG/DL (2-150); VLDL Cholesterol 63.2 MG/DL
[2021-07-08] MEDS: SPIRONOLACTONE 25 MG TABLET PO SCH (08:42)
[2021-07-08] MEDS: INSULIN REGULAR 100 UNIT/ML SUBCUT SCH ×4 (08:42→21:18)
[2021-07-08] MEDS: MULTIVITAMIN (CENTRUM) TABLET PO SCH (08:42)
[2021-07-08] MEDS: METOPROLOL SUCCINATE XL 25 MG TABLET PO SCH (08:42)
[2021-07-08] MEDS: PRAMIPEXOLE 0.25 MG TABLET PO SCH ×3 (08:42→21:17)
[2021-07-08] MEDS: ASPIRIN EC 325 MG TABLET PO SCH (08:42)
[2021-07-08] MEDS: CLOPIDOGREL 75 MG TABLET PO SCH (08:42)
[2021-07-08] MEDS: POTASSIUM CHLORIDE 10 MEQ TABLET PO SCH (08:42)
[2021-07-08] MEDS: PANTOPRAZOLE 40 MG TABLET PO SCH (08:42)
[2021-07-08] MEDS: FUROSEMIDE 20 MG TABLET PO SCH (08:42)
[2021-07-08] MEDS: ISOSORBIDE MONONITRATE 30 MG TABLET PO SCH (08:42)
[2021-07-08 09:32] LABS: Free T4 (Free Thyroxine) 0.96 NG/DL (0.76-1.46)
[2021-07-08] MEDS: RANOLAZINE 500 MG TABLET PO SCH ×2 (09:58→21:17)
[2021-07-08] MEDS: gemfibroziL 600 MG TABLET PO SCH ×2 (09:58→16:35)
[2021-07-08] MEDS: CARBIDOPA/LEVODOPA 25-100 MG TABLET PO SCH ×4 (09:58→17:21)
[2021-07-08] MEDS: SERTRALINE 100 MG TABLET PO SCH (09:59)
[2021-07-08] MEDS ORDERED: ENOXAPARIN 80 MG/0.8 ML SYRINGE SUBCUT SCH (11:00)
[2021-07-08] MEDS ORDERED: risperiDONE 1 MG TABLET PO SCH (21:00)
[2021-07-08] MEDS: ROSUVASTATIN 20 MG TABLET PO SCH (21:17)
[2021-07-09 05:32] LABS: Basophils % 0.3 % (0.0-0.8); Eosinophils # 0.1 10*3/uL (0.0-0.87); Eosinophils % 1.8 % (0.00-10.9); Hematocrit 37.3 VOL% (35.7-47.0); Hemoglobin 11.8 GM/DL (12.0-16.0); Immature Granulocytes % 0.6 %; Immature Granulocytes Absolute 0.04 #; Lymphocytes # 1.1 10*3/uL (1.4-4.0); Lymphocytes % 17.9 % (21.3-54.2); Mean Corpuscular HGB Conc 31.6 GM/DL (32-36); Mean Corpuscular Volume 82.7 FL (87-102); Mean Platelet Volume 11.1 FL (9.6-12.0); Monocytes % 9.9 % (1.7-12.7); Neutrophils % 69.5 % (38.7-73.9); Platelet Count 139 T/CUMM (130-400); Red Blood Count 4.51 MC/CUMM (3.8-5.5); Red Cell Distribution Width 14.6 % (9.3-17.3); White Blood Count 6.3 T/CUMM (4-12)
[2021-07-09] MEDS: SODIUM CHLORIDE 0.9% 1,000 ML IV SCH ×3 (05:59→17:49)
[2021-07-09 06:17] LABS: Calcium 9.1 MG/DL (8.5-10.1); Osmolality,Calculated 277.4 MOS/KG (273-304); Potassium 4.4 MMOL/L (3.5-5.1)
[2021-07-09] MEDS: SERTRALINE 100 MG TABLET PO SCH (09:20)
[2021-07-09] MEDS: POTASSIUM CHLORIDE 10 MEQ TABLET PO SCH (09:20)
[2021-07-09] MEDS: METOPROLOL SUCCINATE XL 25 MG TABLET PO SCH (09:20)
[2021-07-09] MEDS: RANOLAZINE 500 MG TABLET PO SCH ×2 (09:20→21:40)
[2021-07-09] MEDS: MULTIVITAMIN (CENTRUM) TABLET PO SCH (09:20)
[2021-07-09] MEDS: AMANTADINE 100 MG CAPSULE PO SCH (09:20)
[2021-07-09] MEDS: INSULIN REGULAR 100 UNIT/ML SUBCUT SCH ×4 (09:20→21:41)
[2021-07-09] MEDS: ASPIRIN EC 325 MG TABLET PO SCH (09:20)
[2021-07-09] MEDS: FUROSEMIDE 20 MG TABLET PO SCH (09:21)
[2021-07-09] MEDS: CLOPIDOGREL 75 MG TABLET PO SCH (09:21)
[2021-07-09] MEDS: CARBIDOPA/LEVODOPA 25-100 MG TABLET PO SCH ×4 (09:21→16:12)
[2021-07-09] MEDS: PRAMIPEXOLE 0.25 MG TABLET PO SCH ×3 (09:21→21:40)
[2021-07-09] MEDS: GABAPENTIN 300 MG CAPSULE PO SCH ×2 (09:21→21:41)
[2021-07-09] MEDS: ISOSORBIDE MONONITRATE 30 MG TABLET PO SCH (09:21)
[2021-07-09] MEDS: gemfibroziL 600 MG TABLET PO SCH ×2 (09:21→18:08)
[2021-07-09] MEDS: PANTOPRAZOLE 40 MG TABLET PO SCH (09:21)
[2021-07-09] MEDS: SPIRONOLACTONE 25 MG TABLET PO SCH (09:21)
[2021-07-09] MEDS ORDERED: NITROGLYCERIN SL 0.4 MG TABLET SL PRN (12:34)
[2021-07-09] MEDS: ONDANSETRON 4 MG/2 ML VIAL IV PRN (20:22)
[2021-07-09] MEDS: ASPIRIN CHEW 81 MG TABLET PO SCH (21:40)
[2021-07-09] MEDS: ROSUVASTATIN 20 MG TABLET PO SCH (21:41)
[2021-07-09] MEDS: glipiZIDE 5 MG TABLET PO SCH (21:45)
[2021-07-10 05:12] LABS: Basophils % 0.2 % (0.0-0.8); Eosinophils # 0.1 10*3/uL (0.0-0.87); Eosinophils % 1.6 % (0.00-10.9); Hematocrit 35.7 VOL% (35.7-47.0); Hemoglobin 11.4 GM/DL (12.0-16.0); Immature Granulocytes % 0.7 %; Immature Granulocytes Absolute 0.04 #; Lymphocytes # 1.3 10*3/uL (1.4-4.0); Lymphocytes % 23.2 % (21.3-54.2); Mean Corpuscular HGB Conc 31.9 GM/DL (32-36); Mean Corpuscular Volume 82.3 FL (87-102); Mean Platelet Volume 10.9 FL (9.6-12.0); Monocytes % 12.7 % (1.7-12.7); Neutrophils % 61.6 % (38.7-73.9); Platelet Count 143 T/CUMM (130-400); Red Blood Count 4.34 MC/CUMM (3.8-5.5); Red Cell Distribution Width 14.6 % (9.3-17.3); White Blood Count 5.7 T/CUMM (4-12)
[2021-07-10 05:39] LABS: Calcium 10.1 MG/DL (8.5-10.1); Osmolality,Calculated 270.4 MOS/KG (273-304); Potassium 4.1 MMOL/L (3.5-5.1)
[2021-07-10] MEDS: METOPROLOL SUCCINATE XL 25 MG TABLET PO SCH (09:59)
[2021-07-10] MEDS: glipiZIDE 5 MG TABLET PO SCH ×2 (10:00→20:48)
[2021-07-10] MEDS: AMANTADINE 100 MG CAPSULE PO SCH (10:00)
[2021-07-10] MEDS: metFORMIN 500 MG TABLET PO SCH (10:00)
[2021-07-10] MEDS: POTASSIUM CHLORIDE 10 MEQ TABLET PO SCH (10:01)
[2021-07-10] MEDS: RANOLAZINE 500 MG TABLET PO SCH ×2 (10:01→20:49)
[2021-07-10] MEDS: MULTIVITAMIN (CENTRUM) TABLET PO SCH (10:01)
[2021-07-10] MEDS: CARBIDOPA/LEVODOPA 25-100 MG TABLET PO SCH ×4 (10:02→16:24)
[2021-07-10] MEDS: FUROSEMIDE 20 MG TABLET PO SCH (10:03)
[2021-07-10] MEDS: GABAPENTIN 300 MG CAPSULE PO SCH ×2 (10:03→20:49)
[2021-07-10] MEDS: SERTRALINE 100 MG TABLET PO SCH (10:04)
[2021-07-10] MEDS: CLOPIDOGREL 75 MG TABLET PO SCH (10:04)
[2021-07-10] MEDS: gemfibroziL 600 MG TABLET PO SCH ×2 (10:04→16:24)
[2021-07-10] MEDS: PRAMIPEXOLE 0.25 MG TABLET PO SCH ×3 (10:04→20:49)
[2021-07-10] MEDS: PANTOPRAZOLE 40 MG TABLET PO SCH (10:05)
[2021-07-10] MEDS: ISOSORBIDE MONONITRATE 30 MG TABLET PO SCH (10:05)
[2021-07-10] MEDS: SPIRONOLACTONE 25 MG TABLET PO SCH (10:06)
[2021-07-10] MEDS: INSULIN REGULAR 100 UNIT/ML SUBCUT SCH ×4 (10:08→22:52)
[2021-07-10] MEDS: ONDANSETRON 4 MG/2 ML VIAL IV PRN ×2 (10:41→16:27)
[2021-07-10] MEDS: ACETAMINOPHEN 325 MG TABLET PO PRN (13:56)
[2021-07-10] MEDS: SODIUM CHLORIDE 0.9% 1,000 ML IV SCH (15:45)
[2021-07-10] MEDS: ROSUVASTATIN 20 MG TABLET PO SCH (20:49)
[2021-07-10] MEDS: ASPIRIN CHEW 81 MG TABLET PO SCH (20:49)
[2021-07-10] MEDS ORDERED: MELATONIN 3 MG TABLET PO ONE (21:00)
[2021-07-11 08:43] LABS: Basophils % 0.2 % (0.0-0.8); Eosinophils # 0.1 10*3/uL (0.0-0.87); Eosinophils % 1.1 % (0.00-10.9); Hematocrit 39.1 VOL% (35.7-47.0); Hemoglobin 12.4 GM/DL (12.0-16.0); Immature Granulocytes % 1.1 %; Immature Granulocytes Absolute 0.07 #; Lymphocytes # 1.3 10*3/uL (1.4-4.0); Lymphocytes % 19.6 % (21.3-54.2); Mean Corpuscular HGB Conc 31.7 GM/DL (32-36); Mean Corpuscular Volume 82.7 FL (87-102); Mean Platelet Volume 10.8 FL (9.6-12.0); Monocytes % 9.4 % (1.7-12.7); Neutrophils % 68.6 % (38.7-73.9); Platelet Count 162 T/CUMM (130-400); Red Blood Count 4.73 MC/CUMM (3.8-5.5); Red Cell Distribution Width 14.9 % (9.3-17.3); White Blood Count 6.5 T/CUMM (4-12)
[2021-07-11] MEDS: AMANTADINE 100 MG CAPSULE PO SCH (08:53)
[2021-07-11] MEDS: MULTIVITAMIN (CENTRUM) TABLET PO SCH (08:54)
[2021-07-11] MEDS: POTASSIUM CHLORIDE 10 MEQ TABLET PO SCH (08:54)
[2021-07-11] MEDS: glipiZIDE 5 MG TABLET PO SCH ×2 (08:54→20:24)
[2021-07-11] MEDS: METOPROLOL SUCCINATE XL 25 MG TABLET PO SCH (08:57)
[2021-07-11] MEDS: INSULIN REGULAR 100 UNIT/ML SUBCUT SCH ×4 (08:57→20:25)
[2021-07-11] MEDS: RANOLAZINE 500 MG TABLET PO SCH ×2 (08:57→20:24)
[2021-07-11] MEDS: metFORMIN 500 MG TABLET PO SCH (08:58)
[2021-07-11] MEDS: FUROSEMIDE 20 MG TABLET PO SCH (08:59)
[2021-07-11] MEDS: SPIRONOLACTONE 25 MG TABLET PO SCH (08:59)
[2021-07-11] MEDS: ISOSORBIDE MONONITRATE 30 MG TABLET PO SCH (09:00)
[2021-07-11] MEDS: CARBIDOPA/LEVODOPA 25-100 MG TABLET PO SCH ×4 (09:00→16:31)
[2021-07-11] MEDS ORDERED: ERGOCALCIFEROL 50,000 UNIT CAPSULE PO SCH (09:00)
[2021-07-11] MEDS: PANTOPRAZOLE 40 MG TABLET PO SCH (09:01)
[2021-07-11] MEDS: CLOPIDOGREL 75 MG TABLET PO SCH (09:01)
[2021-07-11] MEDS: GABAPENTIN 300 MG CAPSULE PO SCH ×2 (09:01→20:24)
[2021-07-11] MEDS: SERTRALINE 100 MG TABLET PO SCH (09:01)
[2021-07-11 09:04] LABS: Osmolality,Calculated 266.9 MOS/KG (273-304); Potassium 4.6 MMOL/L (3.5-5.1)
[2021-07-11] MEDS: gemfibroziL 600 MG TABLET PO SCH ×2 (09:10→16:31)
[2021-07-11] MEDS: ONDANSETRON 4 MG/2 ML VIAL IV PRN ×2 (09:10→12:34)
[2021-07-11] MEDS: PRAMIPEXOLE 0.25 MG TABLET PO SCH ×3 (09:10→20:24)
[2021-07-11] MEDS: SODIUM CHLORIDE 0.9% 1,000 ML IV SCH (10:40)
[2021-07-11] MEDS: ASPIRIN CHEW 81 MG TABLET PO SCH (20:24)
[2021-07-11] MEDS: ROSUVASTATIN 20 MG TABLET PO SCH (20:24)
[2021-07-12] MEDS: ONDANSETRON 4 MG/2 ML VIAL IV PRN ×2 (00:12→09:22)
[2021-07-12] MEDS: SODIUM CHLORIDE 0.9% 1,000 ML IV SCH (06:04)
[2021-07-12 07:41] LABS: Basophils % 0.2 % (0.0-0.8); Eosinophils # 0.1 10*3/uL (0.0-0.87); Eosinophils % 1.2 % (0.00-10.9); Hematocrit 40.2 VOL% (35.7-47.0); Hemoglobin 12.6 GM/DL (12.0-16.0); Immature Granulocytes Absolute 0.06 #; Lymphocytes # 1.5 10*3/uL (1.4-4.0); Lymphocytes % 25.2 % (21.3-54.2); Mean Corpuscular HGB Conc 31.3 GM/DL (32-36); Mean Corpuscular Volume 83.9 FL (87-102); Mean Platelet Volume 11.2 FL (9.6-12.0); Monocytes % 10.7 % (1.7-12.7); Neutrophils % 61.7 % (38.7-73.9); Platelet Count 173 T/CUMM (130-400); Red Blood Count 4.79 MC/CUMM (3.8-5.5); Red Cell Distribution Width 15.1 % (9.3-17.3)
[2021-07-12 08:16] LABS: Calcium 9.6 MG/DL (8.5-10.1); Osmolality,Calculated 269.2 MOS/KG (273-304); Potassium 4.1 MMOL/L (3.5-5.1)
[2021-07-12] MEDS: INSULIN REGULAR 100 UNIT/ML SUBCUT SCH ×4 (09:32→20:38)
[2021-07-12] MEDS: METOPROLOL SUCCINATE XL 25 MG TABLET PO SCH (09:48)
[2021-07-12] MEDS: FUROSEMIDE 20 MG TABLET PO SCH (09:49)
[2021-07-12] MEDS: MULTIVITAMIN (CENTRUM) TABLET PO SCH (09:49)
[2021-07-12] MEDS: SPIRONOLACTONE 25 MG TABLET PO SCH (09:49)
[2021-07-12] MEDS: PANTOPRAZOLE 40 MG TABLET PO SCH (09:49)
[2021-07-12] MEDS: CLOPIDOGREL 75 MG TABLET PO SCH (09:50)
[2021-07-12] MEDS: PRAMIPEXOLE 0.25 MG TABLET PO SCH ×3 (09:50→20:37)
[2021-07-12] MEDS: ISOSORBIDE MONONITRATE 30 MG TABLET PO SCH (09:50)
[2021-07-12] MEDS: ACETAMINOPHEN 325 MG TABLET PO PRN ×3 (09:51→22:34)
[2021-07-12] MEDS: metFORMIN 500 MG TABLET PO SCH (09:51)
[2021-07-12] MEDS: RANOLAZINE 500 MG TABLET PO SCH ×2 (09:52→20:37)
[2021-07-12] MEDS: SERTRALINE 100 MG TABLET PO SCH (09:52)
[2021-07-12] MEDS: GABAPENTIN 300 MG CAPSULE PO SCH ×2 (09:52→20:37)
[2021-07-12] MEDS: CARBIDOPA/LEVODOPA 25-100 MG TABLET PO SCH ×4 (09:52→17:17)
[2021-07-12] MEDS: glipiZIDE 5 MG TABLET PO SCH ×2 (09:53→20:38)
[2021-07-12] MEDS: gemfibroziL 600 MG TABLET PO SCH ×2 (09:53→17:17)
[2021-07-12] MEDS: POTASSIUM CHLORIDE 10 MEQ TABLET PO SCH (09:54)
[2021-07-12] MEDS: AMANTADINE 100 MG CAPSULE PO SCH (09:54)
[2021-07-12] MEDS: ASPIRIN CHEW 81 MG TABLET PO SCH (20:37)
[2021-07-12] MEDS: ROSUVASTATIN 20 MG TABLET PO SCH (20:38)
[2021-07-13] MEDS: SODIUM CHLORIDE 0.9% 1,000 ML IV SCH ×2 (02:26→22:56)
[2021-07-13] MEDS: ONDANSETRON 4 MG/2 ML VIAL IV PRN ×2 (03:43)
[2021-07-13] MEDS: INSULIN REGULAR 100 UNIT/ML SUBCUT SCH ×4 (08:21→22:15)
[2021-07-13] MEDS: GABAPENTIN 300 MG CAPSULE PO SCH ×2 (08:56→20:59)
[2021-07-13] MEDS: gemfibroziL 600 MG TABLET PO SCH ×2 (08:56→17:07)
[2021-07-13] MEDS: PRAMIPEXOLE 0.25 MG TABLET PO SCH ×3 (08:57→20:59)
[2021-07-13] MEDS: CARBIDOPA/LEVODOPA 25-100 MG TABLET PO SCH ×4 (08:57→17:07)
[2021-07-13] MEDS: RANOLAZINE 500 MG TABLET PO SCH ×2 (08:58→20:59)
[2021-07-13] MEDS: AMANTADINE 100 MG CAPSULE PO SCH (08:58)
[2021-07-13] MEDS: ISOSORBIDE MONONITRATE 30 MG TABLET PO SCH (08:58)
[2021-07-13] MEDS: MULTIVITAMIN (CENTRUM) TABLET PO SCH ×2 (08:59→09:01)
[2021-07-13] MEDS: CLOPIDOGREL 75 MG TABLET PO SCH (08:59)
[2021-07-13] MEDS: glipiZIDE 5 MG TABLET PO SCH ×2 (08:59→20:59)
[2021-07-13] MEDS: FUROSEMIDE 20 MG TABLET PO SCH (08:59)
[2021-07-13] MEDS: METOPROLOL SUCCINATE XL 25 MG TABLET PO SCH (09:00)
[2021-07-13] MEDS: metFORMIN 500 MG TABLET PO SCH (09:00)
[2021-07-13] MEDS: PANTOPRAZOLE 40 MG TABLET PO SCH (09:00)
[2021-07-13] MEDS: SERTRALINE 100 MG TABLET PO SCH (09:01)
[2021-07-13] MEDS: SPIRONOLACTONE 25 MG TABLET PO SCH (09:01)
[2021-07-13] MEDS: POTASSIUM CHLORIDE 10 MEQ TABLET PO SCH (09:01)
[2021-07-13 18:32] LABS: Calcium 9.6 MG/DL (8.5-10.1); Osmolality,Calculated 271.9 MOS/KG (273-304); Potassium 4.5 MMOL/L (3.5-5.1)
[2021-07-13] MEDS ORDERED: ZALEPLON 5 MG CAPSULE PO PRN (20:50)
[2021-07-13] MEDS: ROSUVASTATIN 20 MG TABLET PO SCH (20:59)
[2021-07-13] MEDS: ASPIRIN CHEW 81 MG TABLET PO SCH (20:59)
[2021-07-14] MEDS: INSULIN REGULAR 100 UNIT/ML SUBCUT SCH ×4 (08:41→21:18)
[2021-07-14 08:58] LABS: Calcium 9.5 MG/DL (8.5-10.1); Osmolality,Calculated 268.7 MOS/KG (273-304)
[2021-07-14] MEDS: metFORMIN 500 MG TABLET PO SCH (09:50)
[2021-07-14] MEDS: gemfibroziL 600 MG TABLET PO SCH ×2 (09:50→16:07)
[2021-07-14] MEDS: RANOLAZINE 500 MG TABLET PO SCH ×2 (09:50→21:17)
[2021-07-14] MEDS: MULTIVITAMIN (CENTRUM) TABLET PO SCH (09:50)
[2021-07-14] MEDS: POTASSIUM CHLORIDE 10 MEQ TABLET PO SCH (09:50)
[2021-07-14] MEDS: METOPROLOL SUCCINATE XL 25 MG TABLET PO SCH (09:51)
[2021-07-14] MEDS: CARBIDOPA/LEVODOPA 25-100 MG TABLET PO SCH ×4 (09:52→17:54)
[2021-07-14] MEDS: PRAMIPEXOLE 0.25 MG TABLET PO SCH ×3 (09:52→21:17)
[2021-07-14] MEDS: FUROSEMIDE 20 MG TABLET PO SCH (09:52)
[2021-07-14] MEDS: CLOPIDOGREL 75 MG TABLET PO SCH (09:52)
[2021-07-14] MEDS: SPIRONOLACTONE 25 MG TABLET PO SCH (09:53)
[2021-07-14] MEDS: ISOSORBIDE MONONITRATE 30 MG TABLET PO SCH (09:53)
[2021-07-14] MEDS: AMANTADINE 100 MG CAPSULE PO SCH (09:53)
[2021-07-14] MEDS: GABAPENTIN 300 MG CAPSULE PO SCH ×2 (09:53→21:17)
[2021-07-14] MEDS: PANTOPRAZOLE 40 MG TABLET PO SCH (09:54)
[2021-07-14] MEDS: SERTRALINE 100 MG TABLET PO SCH (09:54)
[2021-07-14] MEDS: glipiZIDE 5 MG TABLET PO SCH ×2 (09:54→21:18)
[2021-07-14] MEDS: ONDANSETRON 4 MG/2 ML VIAL IV PRN (16:12)
[2021-07-14] MEDS: SODIUM CHLORIDE 0.9% 1,000 ML IV SCH (20:40)
[2021-07-14] MEDS: ASPIRIN CHEW 81 MG TABLET PO SCH (21:17)
[2021-07-14] MEDS: ROSUVASTATIN 20 MG TABLET PO SCH (21:17)
[2021-07-15 05:58] LABS: Calcium 9.5 MG/DL (8.5-10.1); Osmolality,Calculated 268.5 MOS/KG (273-304); Potassium 4.3 MMOL/L (3.5-5.1)
[2021-07-15] MEDS: RANOLAZINE 500 MG TABLET PO SCH ×2 (09:30→20:54)
[2021-07-15] MEDS: AMANTADINE 100 MG CAPSULE PO SCH (09:30)
[2021-07-15] MEDS: POTASSIUM CHLORIDE 10 MEQ TABLET PO SCH (09:30)
[2021-07-15] MEDS: METOPROLOL SUCCINATE XL 25 MG TABLET PO SCH (09:30)
[2021-07-15] MEDS: glipiZIDE 5 MG TABLET PO SCH ×2 (09:30→20:53)
[2021-07-15] MEDS: MULTIVITAMIN (CENTRUM) TABLET PO SCH (09:31)
[2021-07-15] MEDS: SPIRONOLACTONE 25 MG TABLET PO SCH (09:31)
[2021-07-15] MEDS: metFORMIN 500 MG TABLET PO SCH (09:31)
[2021-07-15] MEDS: PRAMIPEXOLE 0.25 MG TABLET PO SCH ×3 (09:31→20:54)
[2021-07-15] MEDS: CARBIDOPA/LEVODOPA 25-100 MG TABLET PO SCH ×4 (09:32→17:39)
[2021-07-15] MEDS: SERTRALINE 100 MG TABLET PO SCH (09:32)
[2021-07-15] MEDS: ISOSORBIDE MONONITRATE 30 MG TABLET PO SCH (09:32)
[2021-07-15] MEDS: CLOPIDOGREL 75 MG TABLET PO SCH (09:32)
[2021-07-15] MEDS: FUROSEMIDE 20 MG TABLET PO SCH (09:33)
[2021-07-15] MEDS: GABAPENTIN 300 MG CAPSULE PO SCH ×2 (09:33→20:54)
[2021-07-15] MEDS: PANTOPRAZOLE 40 MG TABLET PO SCH (09:33)
[2021-07-15] MEDS: gemfibroziL 600 MG TABLET PO SCH ×2 (09:39→16:23)
[2021-07-15] MEDS: INSULIN REGULAR 100 UNIT/ML SUBCUT SCH ×4 (09:39→21:04)
[2021-07-15] MEDS: ONDANSETRON 4 MG/2 ML VIAL IV PRN ×2 (12:32→21:02)
[2021-07-15] MEDS: SODIUM CHLORIDE 0.9% 1,000 ML IV SCH (16:19)
[2021-07-15] MEDS: ACETAMINOPHEN 325 MG TABLET PO PRN (17:40)
[2021-07-15] MEDS: ROSUVASTATIN 20 MG TABLET PO SCH (20:53)
[2021-07-15] MEDS: ASPIRIN CHEW 81 MG TABLET PO SCH (20:53)
[2021-07-16] MEDS: ACETAMINOPHEN 325 MG TABLET PO PRN (00:39)
[2021-07-16] MEDS: INSULIN REGULAR 100 UNIT/ML SUBCUT SCH ×2 (09:06→13:04)
[2021-07-16] MEDS: RANOLAZINE 500 MG TABLET PO SCH (09:07)
[2021-07-16] MEDS: POTASSIUM CHLORIDE 10 MEQ TABLET PO SCH (09:07)
[2021-07-16] MEDS: SERTRALINE 100 MG TABLET PO SCH (09:07)
[2021-07-16] MEDS: CLOPIDOGREL 75 MG TABLET PO SCH (09:08)
[2021-07-16] MEDS: metFORMIN 500 MG TABLET PO SCH (09:08)
[2021-07-16] MEDS: ISOSORBIDE MONONITRATE 30 MG TABLET PO SCH (09:08)
[2021-07-16] MEDS: MULTIVITAMIN (CENTRUM) TABLET PO SCH (09:08)
[2021-07-16] MEDS: GABAPENTIN 300 MG CAPSULE PO SCH (09:09)
[2021-07-16] MEDS: PANTOPRAZOLE 40 MG TABLET PO SCH (09:09)
[2021-07-16] MEDS: PRAMIPEXOLE 0.25 MG TABLET PO SCH ×2 (09:09→15:47)
[2021-07-16] MEDS: CARBIDOPA/LEVODOPA 25-100 MG TABLET PO SCH ×3 (09:10→14:55)
[2021-07-16] MEDS: METOPROLOL SUCCINATE XL 25 MG TABLET PO SCH (09:10)
[2021-07-16] MEDS: FUROSEMIDE 20 MG TABLET PO SCH (09:11)
[2021-07-16] MEDS: gemfibroziL 600 MG TABLET PO SCH (09:11)
[2021-07-16] MEDS: SPIRONOLACTONE 25 MG TABLET PO SCH (09:11)
[2021-07-16] MEDS: glipiZIDE 5 MG TABLET PO SCH (09:11)
[2021-07-16] MEDS: AMANTADINE 100 MG CAPSULE PO SCH (09:11)
[2021-07-16 12:49] VITALS: BP 133/68
[2021-07-16] MEDS: SODIUM CHLORIDE 0.9% 1,000 ML IV SCH (15:47)
== END 2021-07-16 15:15 | disposition swing bed (61) | DRG 57 ==
LOC: N.ED 16:10 → N.EDINP 16:10 → SUATTDRO 07-08 01:14 → N.TELES 07-08 14:42 → SUATTDRO 07-09 10:46
PROVIDERS: ADMIT Internal Medicine; ATTEND Internal Medicine

== ENCOUNTER 2021-08-01 14:49 | Observation (INO) ==
[2021-08-01 15:48] LABS: Basophils % 0.5 % (0.0-0.8); Eosinophils % 0.5 % (0.00-10.9); Hematocrit 41.8 VOL% (35.7-47.0); Hemoglobin 13.2 GM/DL (12.0-16.0); Immature Granulocytes Absolute 0.06 #; Lymphocytes % 16.6 % (21.3-54.2); Mean Corpuscular HGB Conc 31.6 GM/DL (32-36); Mean Corpuscular Volume 83.3 FL (87-102); Mean Platelet Volume 10.3 FL (9.6-12.0); Monocytes % 7.4 % (1.7-12.7); Platelet Count 174 T/CUMM (130-400); Red Blood Count 5.02 MC/CUMM (3.8-5.5); Red Cell Distribution Width 15.3 % (9.3-17.3)
[2021-08-01 16:09] LABS: Albumin 4.6 G/DL (3.4-5.0); Bilirubin,Total 0.5 MG/DL (0.20-1.00); Calcium 10.2 MG/DL (8.5-10.1); Osmolality,Calculated 276.8 MOS/KG (273-304); Potassium 3.8 MMOL/L (3.5-5.1); Total Protein 8.6 G/DL (6.4-8.2)
[2021-08-01] MEDS ORDERED: MORPHINE 2 MG/1 ML SYRINGE IV STA (16:44)
[2021-08-01] MEDS ORDERED: MORPHINE 4 MG/1 ML VIAL ONE (17:09)
[2021-08-01] MEDS ORDERED: SODIUM CHLORIDE 0.9% 1,000 ML IV STA (17:18)
[2021-08-01] MEDS ORDERED: MORPHINE 4 MG/1 ML VIAL IV STA (18:43)
[2021-08-01] MEDS ORDERED: NITROGLYCERIN SL 0.4 MG TABLET SL STA (18:44)
[2021-08-01] MEDS ORDERED: DEXTROSE 50% 25 GM/50 ML VIAL IV PRN (19:50)
[2021-08-01] MEDS ORDERED: DOCUSATE SODIUM 100 MG CAPSULE PO PRN (19:50)
[2021-08-01] MEDS ORDERED: ONDANSETRON 4 MG/2 ML VIAL IV PRN (19:50)
[2021-08-01] MEDS ORDERED: GLUCAGON 1 MG VIAL IM PRN (19:50)
[2021-08-01] MEDS ORDERED: ACETAMINOPHEN 325 MG TABLET PO PRN (19:50)
[2021-08-01] MEDS ORDERED: DEXTROSE 10% 250 ML BAG IV PRN (20:12)
[2021-08-01] MEDS: INSULIN REGULAR 100 UNIT/ML SUBCUT SCH (20:59)
[2021-08-01] MEDS: ENOXAPARIN 30 MG/0.3 ML SYRINGE SUBCUT SCH (21:00)
[2021-08-02] MEDS ORDERED: MORPHINE 4 MG/1 ML VIAL IV ONE (02:00)
[2021-08-02 06:39] LABS: Basophils % 0.9 % (0.0-0.8); Eosinophils # 0.1 10*3/uL (0.0-0.87); Eosinophils % 1.3 % (0.00-10.9); Hematocrit 36.4 VOL% (35.7-47.0); Hemoglobin 11.3 GM/DL (12.0-16.0); Immature Granulocytes % 1.1 %; Immature Granulocytes Absolute 0.05 #; Lymphocytes # 1.3 10*3/uL (1.4-4.0); Lymphocytes % 28.3 % (21.3-54.2); Mean Corpuscular Volume 84.7 FL (87-102); Mean Platelet Volume 10.4 FL (9.6-12.0); Monocytes % 12.3 % (1.7-12.7); Neutrophils % 56.1 % (38.7-73.9); Platelet Count 130 T/CUMM (130-400); Red Cell Distribution Width 15.7 % (9.3-17.3); White Blood Count 4.6 T/CUMM (4-12)
[2021-08-02 07:04] LABS: Calcium 9.3 MG/DL (8.5-10.1); Osmolality,Calculated 278.5 MOS/KG (273-304); Potassium 3.5 MMOL/L (3.5-5.1); Thyroid Stimulating Hormone 2.79 uIU/ml (0.358-3.74)
[2021-08-02] MEDS ORDERED: ASPIRIN EC 325 MG TABLET PO SCH (09:00)
[2021-08-02] MEDS: PANTOPRAZOLE 40 MG TABLET PO SCH (09:14)
[2021-08-02] MEDS: INSULIN REGULAR 100 UNIT/ML SUBCUT SCH ×4 (10:20→21:51)
[2021-08-02] MEDS ORDERED: NITROGLYCERIN SL 0.4 MG TABLET SL PRN (10:43)
[2021-08-02] MEDS: MORPHINE 4 MG/1 ML VIAL IV PRN ×3 (10:48→21:56)
[2021-08-02] MEDS: CARBIDOPA/LEVODOPA 25-100 MG TABLET PO SCH ×3 (11:38→16:59)
[2021-08-02] MEDS: CLOPIDOGREL 75 MG TABLET PO SCH (12:16)
[2021-08-02] MEDS: PRAMIPEXOLE 0.25 MG TABLET PO SCH ×2 (14:19→21:50)
[2021-08-02] MEDS: glipiZIDE 5 MG TABLET PO SCH (16:24)
[2021-08-02] MEDS: gemfibroziL 600 MG TABLET PO SCH (16:24)
[2021-08-02] MEDS: GABAPENTIN 300 MG CAPSULE PO SCH (21:50)
[2021-08-02] MEDS: POTASSIUM CHLORIDE 10 MEQ TABLET PO SCH (21:50)
[2021-08-02] MEDS: ASPIRIN CHEW 81 MG TABLET PO SCH (21:50)
[2021-08-02] MEDS: RANOLAZINE 500 MG TABLET PO SCH (21:50)
[2021-08-02] MEDS: ROSUVASTATIN 20 MG TABLET PO SCH (21:50)
[2021-08-02] MEDS: ENOXAPARIN 30 MG/0.3 ML SYRINGE SUBCUT SCH (21:51)
[2021-08-03] MEDS: MORPHINE 4 MG/1 ML VIAL IV PRN ×2 (03:44→09:51)
[2021-08-03] MEDS ORDERED: POTASSIUM CHLORIDE 10 MEQ TABLET PO SCH (09:00)
[2021-08-03] MEDS ORDERED: PANTOPRAZOLE 40 MG TABLET PO SCH (09:00)
[2021-08-03 09:02] LABS: Basophils % 0.5 % (0.0-0.8); Eosinophils # 0.1 10*3/uL (0.0-0.87); Eosinophils % 1.4 % (0.00-10.9); Hematocrit 38.7 VOL% (35.7-47.0); Hemoglobin 12.1 GM/DL (12.0-16.0); Immature Granulocytes Absolute 0.04 #; Lymphocytes # 0.9 10*3/uL (1.4-4.0); Lymphocytes % 21.5 % (21.3-54.2); Mean Corpuscular HGB Conc 31.3 GM/DL (32-36); Mean Corpuscular Volume 83.8 FL (87-102); Mean Platelet Volume 9.7 FL (9.6-12.0); Monocytes % 8.9 % (1.7-12.7); Neutrophils % 66.7 % (38.7-73.9); Platelet Count 132 T/CUMM (130-400); Red Blood Count 4.62 MC/CUMM (3.8-5.5); Red Cell Distribution Width 15.2 % (9.3-17.3); White Blood Count 4.1 T/CUMM (4-12)
[2021-08-03 09:26] LABS: Osmolality,Calculated 277.8 MOS/KG (273-304); Potassium 3.7 MMOL/L (3.5-5.1)
[2021-08-03] MEDS: gemfibroziL 600 MG TABLET PO SCH ×2 (10:23→16:43)
[2021-08-03] MEDS: MULTIVITAMIN (CENTRUM) TABLET PO SCH (10:23)
[2021-08-03] MEDS: FUROSEMIDE 20 MG TABLET PO SCH (10:23)
[2021-08-03] MEDS: ISOSORBIDE MONONITRATE 60 MG TABLET PO SCH (10:26)
[2021-08-03] MEDS: PRAMIPEXOLE 0.25 MG TABLET PO SCH ×3 (10:26→21:59)
[2021-08-03] MEDS: AMANTADINE 100 MG CAPSULE PO SCH (10:26)
[2021-08-03] MEDS: METOPROLOL SUCCINATE XL 25 MG TABLET PO SCH (10:26)
[2021-08-03] MEDS: RANOLAZINE 500 MG TABLET PO SCH ×2 (10:26→21:59)
[2021-08-03] MEDS: glipiZIDE 5 MG TABLET PO SCH ×2 (10:26→18:09)
[2021-08-03] MEDS: GABAPENTIN 300 MG CAPSULE PO SCH ×2 (10:27→22:00)
[2021-08-03] MEDS: CARBIDOPA/LEVODOPA 25-100 MG TABLET PO SCH ×4 (10:27→18:09)
[2021-08-03] MEDS: SPIRONOLACTONE 25 MG TABLET PO SCH (10:27)
[2021-08-03] MEDS: CLOPIDOGREL 75 MG TABLET PO SCH (10:27)
[2021-08-03] MEDS: SERTRALINE 100 MG TABLET PO SCH (10:27)
[2021-08-03] MEDS: POTASSIUM CHLORIDE 10 MEQ TABLET PO SCH ×2 (10:27→21:59)
[2021-08-03] MEDS: metFORMIN 500 MG TABLET PO SCH (10:32)
[2021-08-03] MEDS: PANTOPRAZOLE 40 MG TABLET PO SCH (10:32)
[2021-08-03] MEDS: INSULIN REGULAR 100 UNIT/ML SUBCUT SCH ×4 (10:53→22:00)
[2021-08-03] MEDS: KETOROLAC 15 MG/1 ML VIAL IV PRN (16:43)
[2021-08-03] MEDS: ROSUVASTATIN 20 MG TABLET PO SCH (21:59)
[2021-08-03] MEDS: ASPIRIN CHEW 81 MG TABLET PO SCH (21:59)
[2021-08-03] MEDS: ENOXAPARIN 30 MG/0.3 ML SYRINGE SUBCUT SCH (22:00)
[2021-08-04] MEDS: KETOROLAC 15 MG/1 ML VIAL IV PRN ×4 (00:07→23:45)
[2021-08-04 07:30] LABS: Basophils % 0.3 % (0.0-0.8); Eosinophils # 0.1 10*3/uL (0.0-0.87); Eosinophils % 1.6 % (0.00-10.9); Hematocrit 38.2 VOL% (35.7-47.0); Hemoglobin 11.8 GM/DL (12.0-16.0); Immature Granulocytes % 1.3 %; Immature Granulocytes Absolute 0.05 #; Lymphocytes % 26.5 % (21.3-54.2); Mean Corpuscular HGB Conc 30.9 GM/DL (32-36); Monocytes % 10.6 % (1.7-12.7); Neutrophils % 59.7 % (38.7-73.9); Platelet Count 129 T/CUMM (130-400); Red Blood Count 4.44 MC/CUMM (3.8-5.5); Red Cell Distribution Width 15.7 % (9.3-17.3); White Blood Count 3.9 T/CUMM (4-12)
[2021-08-04 07:41] LABS: Calcium 9.2 MG/DL (8.5-10.1); Osmolality,Calculated 278.5 MOS/KG (273-304); Potassium 3.9 MMOL/L (3.5-5.1)
[2021-08-04] MEDS: GABAPENTIN 300 MG CAPSULE PO SCH ×2 (09:35→23:54)
[2021-08-04] MEDS: CARBIDOPA/LEVODOPA 25-100 MG TABLET PO SCH ×4 (09:35→18:22)
[2021-08-04] MEDS: MULTIVITAMIN (CENTRUM) TABLET PO SCH (09:36)
[2021-08-04] MEDS: ISOSORBIDE MONONITRATE 60 MG TABLET PO SCH (09:36)
[2021-08-04] MEDS: metFORMIN 500 MG TABLET PO SCH (09:36)
[2021-08-04] MEDS: FUROSEMIDE 20 MG TABLET PO SCH (09:36)
[2021-08-04] MEDS: METOPROLOL SUCCINATE XL 25 MG TABLET PO SCH (09:36)
[2021-08-04] MEDS: POTASSIUM CHLORIDE 10 MEQ TABLET PO SCH ×2 (09:36→21:49)
[2021-08-04] MEDS: CLOPIDOGREL 75 MG TABLET PO SCH (09:36)
[2021-08-04] MEDS: RANOLAZINE 500 MG TABLET PO SCH ×2 (09:37→21:49)
[2021-08-04] MEDS: gemfibroziL 600 MG TABLET PO SCH ×2 (09:37→16:42)
[2021-08-04] MEDS: SPIRONOLACTONE 25 MG TABLET PO SCH (09:37)
[2021-08-04] MEDS: AMANTADINE 100 MG CAPSULE PO SCH (09:37)
[2021-08-04] MEDS: SERTRALINE 100 MG TABLET PO SCH (09:38)
[2021-08-04] MEDS: PRAMIPEXOLE 0.25 MG TABLET PO SCH ×3 (09:38→21:49)
[2021-08-04] MEDS: glipiZIDE 5 MG TABLET PO SCH ×2 (09:38→18:22)
[2021-08-04] MEDS: LIDOCAINE 5% PATCH TRANSDERM SCH (09:42)
[2021-08-04] MEDS: PANTOPRAZOLE 40 MG TABLET PO SCH (09:42)
[2021-08-04] MEDS: INSULIN REGULAR 100 UNIT/ML SUBCUT SCH ×4 (11:12→21:49)
[2021-08-04] MEDS: ZALEPLON 5 MG CAPSULE PO PRN (21:48)
[2021-08-04] MEDS: ASPIRIN CHEW 81 MG TABLET PO SCH (21:48)
[2021-08-04] MEDS: ROSUVASTATIN 20 MG TABLET PO SCH (21:48)
[2021-08-04] MEDS: ENOXAPARIN 30 MG/0.3 ML SYRINGE SUBCUT SCH (21:49)
[2021-08-05] MEDS: MORPHINE 4 MG/1 ML VIAL IV PRN ×2 (03:05→21:26)
[2021-08-05 06:44] LABS: Basophils % 0.5 % (0.0-0.8); Eosinophils # 0.1 10*3/uL (0.0-0.87); Eosinophils % 1.6 % (0.00-10.9); Hematocrit 35.2 VOL% (35.7-47.0); Hemoglobin 10.8 GM/DL (12.0-16.0); Immature Granulocytes % 0.8 %; Immature Granulocytes Absolute 0.03 #; Lymphocytes # 0.9 10*3/uL (1.4-4.0); Lymphocytes % 24.6 % (21.3-54.2); Mean Corpuscular HGB Conc 30.7 GM/DL (32-36); Mean Corpuscular Volume 85.6 FL (87-102); Mean Platelet Volume 10.6 FL (9.6-12.0); Monocytes % 11.1 % (1.7-12.7); Neutrophils % 61.4 % (38.7-73.9); Platelet Count 133 T/CUMM (130-400); Red Blood Count 4.11 MC/CUMM (3.8-5.5); Red Cell Distribution Width 15.5 % (9.3-17.3); White Blood Count 3.8 T/CUMM (4-12)
[2021-08-05 07:04] LABS: Calcium 9.6 MG/DL (8.5-10.1); Osmolality,Calculated 282.5 MOS/KG (273-304); Potassium 3.8 MMOL/L (3.5-5.1)
[2021-08-05] MEDS: metFORMIN 500 MG TABLET PO SCH (09:46)
[2021-08-05] MEDS: SERTRALINE 100 MG TABLET PO SCH (09:46)
[2021-08-05] MEDS: GABAPENTIN 300 MG CAPSULE PO SCH ×2 (09:47→21:28)
[2021-08-05] MEDS: gemfibroziL 600 MG TABLET PO SCH ×2 (09:47→18:12)
[2021-08-05] MEDS: CARBIDOPA/LEVODOPA 25-100 MG TABLET PO SCH ×4 (09:48→18:12)
[2021-08-05] MEDS: ISOSORBIDE MONONITRATE 60 MG TABLET PO SCH (09:48)
[2021-08-05] MEDS: AMANTADINE 100 MG CAPSULE PO SCH (09:49)
[2021-08-05] MEDS: RANOLAZINE 500 MG TABLET PO SCH ×2 (09:49→21:28)
[2021-08-05] MEDS: SPIRONOLACTONE 25 MG TABLET PO SCH (09:50)
[2021-08-05] MEDS: CLOPIDOGREL 75 MG TABLET PO SCH (09:51)
[2021-08-05] MEDS: POTASSIUM CHLORIDE 10 MEQ TABLET PO SCH ×2 (09:51→21:28)
[2021-08-05] MEDS: MULTIVITAMIN (CENTRUM) TABLET PO SCH (09:52)
[2021-08-05] MEDS: FUROSEMIDE 20 MG TABLET PO SCH (09:52)
[2021-08-05] MEDS: PRAMIPEXOLE 0.25 MG TABLET PO SCH ×3 (09:53→22:03)
[2021-08-05] MEDS: LIDOCAINE 5% PATCH TRANSDERM SCH (11:17)
[2021-08-05] MEDS: glipiZIDE 5 MG TABLET PO SCH ×2 (11:17→18:12)
[2021-08-05] MEDS: INSULIN REGULAR 100 UNIT/ML SUBCUT SCH ×4 (11:17→21:31)
[2021-08-05] MEDS: PANTOPRAZOLE 40 MG TABLET PO SCH (11:18)
[2021-08-05] MEDS: METOPROLOL SUCCINATE XL 25 MG TABLET PO SCH (11:18)
[2021-08-05] MEDS: ROSUVASTATIN 20 MG TABLET PO SCH (21:27)
[2021-08-05] MEDS: ASPIRIN CHEW 81 MG TABLET PO SCH (21:27)
[2021-08-05] MEDS: ENOXAPARIN 30 MG/0.3 ML SYRINGE SUBCUT SCH (21:28)
[2021-08-06 05:56] LABS: Basophils % 0.5 % (0.0-0.8); Eosinophils # 0.1 10*3/uL (0.0-0.87); Eosinophils % 1.8 % (0.00-10.9); Hematocrit 41.4 VOL% (35.7-47.0); Hemoglobin 12.6 GM/DL (12.0-16.0); Immature Granulocytes % 0.9 %; Immature Granulocytes Absolute 0.05 #; Lymphocytes # 1.4 10*3/uL (1.4-4.0); Lymphocytes % 25.3 % (21.3-54.2); Mean Corpuscular HGB Conc 30.4 GM/DL (32-36); Mean Corpuscular Volume 85.9 FL (87-102); Mean Platelet Volume 10.5 FL (9.6-12.0); Monocytes % 8.6 % (1.7-12.7); Neutrophils % 62.9 % (38.7-73.9); Platelet Count 169 T/CUMM (130-400); Red Blood Count 4.82 MC/CUMM (3.8-5.5); Red Cell Distribution Width 15.8 % (9.3-17.3); White Blood Count 5.6 T/CUMM (4-12)
[2021-08-06 06:17] LABS: Calcium 9.9 MG/DL (8.5-10.1); Potassium 4.7 MMOL/L (3.5-5.1)
[2021-08-06] MEDS: INSULIN REGULAR 100 UNIT/ML SUBCUT SCH ×4 (08:02→23:14)
[2021-08-06] MEDS: metFORMIN 500 MG TABLET PO SCH (09:17)
[2021-08-06] MEDS: CLOPIDOGREL 75 MG TABLET PO SCH (09:17)
[2021-08-06] MEDS: PANTOPRAZOLE 40 MG TABLET PO SCH (09:17)
[2021-08-06] MEDS: MULTIVITAMIN (CENTRUM) TABLET PO SCH (09:17)
[2021-08-06] MEDS: AMANTADINE 100 MG CAPSULE PO SCH (09:18)
[2021-08-06] MEDS: SERTRALINE 100 MG TABLET PO SCH (09:18)
[2021-08-06] MEDS: GABAPENTIN 300 MG CAPSULE PO SCH ×2 (09:19→20:24)
[2021-08-06] MEDS: glipiZIDE 5 MG TABLET PO SCH ×2 (09:19→16:32)
[2021-08-06] MEDS: ISOSORBIDE MONONITRATE 60 MG TABLET PO SCH (09:19)
[2021-08-06] MEDS: FUROSEMIDE 20 MG TABLET PO SCH (09:19)
[2021-08-06] MEDS: gemfibroziL 600 MG TABLET PO SCH ×2 (09:19→16:32)
[2021-08-06] MEDS: CARBIDOPA/LEVODOPA 25-100 MG TABLET PO SCH ×4 (09:40→16:32)
[2021-08-06] MEDS: PRAMIPEXOLE 0.25 MG TABLET PO SCH ×3 (09:40→20:24)
[2021-08-06] MEDS: SPIRONOLACTONE 25 MG TABLET PO SCH (09:41)
[2021-08-06] MEDS: METOPROLOL SUCCINATE XL 25 MG TABLET PO SCH (09:41)
[2021-08-06] MEDS: RANOLAZINE 500 MG TABLET PO SCH ×2 (09:42→20:23)
[2021-08-06] MEDS: POTASSIUM CHLORIDE 10 MEQ TABLET PO SCH ×2 (09:43→20:23)
[2021-08-06] MEDS: LIDOCAINE 5% PATCH TRANSDERM SCH (09:44)
[2021-08-06] MEDS: MORPHINE 4 MG/1 ML VIAL IV PRN ×2 (10:20→20:25)
[2021-08-06] MEDS: ROSUVASTATIN 20 MG TABLET PO SCH (20:24)
[2021-08-06] MEDS: ASPIRIN CHEW 81 MG TABLET PO SCH (20:24)
[2021-08-06] MEDS: ENOXAPARIN 30 MG/0.3 ML SYRINGE SUBCUT SCH (20:25)
[2021-08-07 05:35] LABS: Basophils % 0.5 % (0.0-0.8); Eosinophils # 0.1 10*3/uL (0.0-0.87); Eosinophils % 1.8 % (0.00-10.9); Hematocrit 36.3 VOL% (35.7-47.0); Hemoglobin 11.2 GM/DL (12.0-16.0); Immature Granulocytes % 0.8 %; Immature Granulocytes Absolute 0.03 #; Lymphocytes # 1.1 10*3/uL (1.4-4.0); Lymphocytes % 28.3 % (21.3-54.2); Mean Corpuscular HGB Conc 30.9 GM/DL (32-36); Mean Corpuscular Volume 85.8 FL (87-102); Mean Platelet Volume 10.2 FL (9.6-12.0); Monocytes % 12.3 % (1.7-12.7); Neutrophils % 56.3 % (38.7-73.9); Platelet Count 128 T/CUMM (130-400); Red Blood Count 4.23 MC/CUMM (3.8-5.5); Red Cell Distribution Width 15.4 % (9.3-17.3)
[2021-08-07 05:46] LABS: Calcium 9.7 MG/DL (8.5-10.1); Osmolality,Calculated 282.5 MOS/KG (273-304)
[2021-08-07] MEDS: MORPHINE 4 MG/1 ML VIAL IV PRN (05:54)
[2021-08-07] MEDS: gemfibroziL 600 MG TABLET PO SCH ×2 (09:23→17:37)
[2021-08-07] MEDS: INSULIN REGULAR 100 UNIT/ML SUBCUT SCH ×4 (09:23→21:02)
[2021-08-07] MEDS: glipiZIDE 5 MG TABLET PO SCH ×2 (09:24→17:37)
[2021-08-07] MEDS: CARBIDOPA/LEVODOPA 25-100 MG TABLET PO SCH ×4 (09:25→17:37)
[2021-08-07] MEDS: MULTIVITAMIN (CENTRUM) TABLET PO SCH (09:39)
[2021-08-07] MEDS: SPIRONOLACTONE 25 MG TABLET PO SCH (09:39)
[2021-08-07] MEDS: metFORMIN 500 MG TABLET PO SCH (09:40)
[2021-08-07] MEDS: ISOSORBIDE MONONITRATE 60 MG TABLET PO SCH (09:40)
[2021-08-07] MEDS: FUROSEMIDE 20 MG TABLET PO SCH (09:42)
[2021-08-07] MEDS: LIDOCAINE 5% PATCH TRANSDERM SCH (09:43)
[2021-08-07] MEDS: PRAMIPEXOLE 0.25 MG TABLET PO SCH ×3 (09:44→20:55)
[2021-08-07] MEDS: GABAPENTIN 300 MG CAPSULE PO SCH ×2 (09:45→20:54)
[2021-08-07] MEDS: PANTOPRAZOLE 40 MG TABLET PO SCH (09:45)
[2021-08-07] MEDS: CLOPIDOGREL 75 MG TABLET PO SCH (09:45)
[2021-08-07] MEDS: AMANTADINE 100 MG CAPSULE PO SCH (09:46)
[2021-08-07] MEDS: RANOLAZINE 500 MG TABLET PO SCH ×2 (09:46→20:55)
[2021-08-07] MEDS: METOPROLOL SUCCINATE XL 25 MG TABLET PO SCH (09:47)
[2021-08-07] MEDS: SERTRALINE 100 MG TABLET PO SCH (09:47)
[2021-08-07] MEDS: POTASSIUM CHLORIDE 10 MEQ TABLET PO SCH ×2 (09:52→20:55)
[2021-08-07] MEDS: ROSUVASTATIN 20 MG TABLET PO SCH (20:55)
[2021-08-07] MEDS: KETOROLAC 15 MG/1 ML VIAL IV PRN (20:55)
[2021-08-07] MEDS: ZALEPLON 5 MG CAPSULE PO PRN (20:55)
[2021-08-07] MEDS: ENOXAPARIN 30 MG/0.3 ML SYRINGE SUBCUT SCH (20:55)
[2021-08-07] MEDS: ASPIRIN CHEW 81 MG TABLET PO SCH (20:55)
[2021-08-08 05:33] LABS: Basophils % 0.4 % (0.0-0.8); Eosinophils # 0.1 10*3/uL (0.0-0.87); Eosinophils % 1.8 % (0.00-10.9); Hematocrit 36.1 VOL% (35.7-47.0); Hemoglobin 11.3 GM/DL (12.0-16.0); Immature Granulocytes % 1.4 %; Immature Granulocytes Absolute 0.07 #; Lymphocytes # 1.2 10*3/uL (1.4-4.0); Lymphocytes % 23.7 % (21.3-54.2); Mean Corpuscular HGB Conc 31.3 GM/DL (32-36); Mean Corpuscular Volume 84.3 FL (87-102); Mean Platelet Volume 10.9 FL (9.6-12.0); Neutrophils % 63.7 % (38.7-73.9); Platelet Count 139 T/CUMM (130-400); Red Blood Count 4.28 MC/CUMM (3.8-5.5); Red Cell Distribution Width 15.6 % (9.3-17.3); White Blood Count 4.9 T/CUMM (4-12)
[2021-08-08 06:31] LABS: Calcium 9.4 MG/DL (8.5-10.1); Osmolality,Calculated 276.8 MOS/KG (273-304); Potassium 3.9 MMOL/L (3.5-5.1)
[2021-08-08] MEDS ORDERED: ERGOCALCIFEROL 50,000 UNIT CAPSULE PO SCH (09:00)
[2021-08-08] MEDS: INSULIN REGULAR 100 UNIT/ML SUBCUT SCH ×4 (10:27→21:32)
[2021-08-08] MEDS: gemfibroziL 600 MG TABLET PO SCH ×2 (10:28→16:52)
[2021-08-08] MEDS: glipiZIDE 5 MG TABLET PO SCH ×2 (10:28→16:53)
[2021-08-08] MEDS: CARBIDOPA/LEVODOPA 25-100 MG TABLET PO SCH ×4 (10:30→16:52)
[2021-08-08] MEDS: SPIRONOLACTONE 25 MG TABLET PO SCH (10:31)
[2021-08-08] MEDS: MULTIVITAMIN (CENTRUM) TABLET PO SCH (10:31)
[2021-08-08] MEDS: ISOSORBIDE MONONITRATE 60 MG TABLET PO SCH (10:32)
[2021-08-08] MEDS: metFORMIN 500 MG TABLET PO SCH (10:32)
[2021-08-08] MEDS: LIDOCAINE 5% PATCH TRANSDERM SCH (10:33)
[2021-08-08] MEDS: FUROSEMIDE 20 MG TABLET PO SCH (10:33)
[2021-08-08] MEDS: GABAPENTIN 300 MG CAPSULE PO SCH ×2 (10:35→21:31)
[2021-08-08] MEDS: PRAMIPEXOLE 0.25 MG TABLET PO SCH ×3 (10:35→21:32)
[2021-08-08] MEDS: RANOLAZINE 500 MG TABLET PO SCH ×2 (10:36→21:31)
[2021-08-08] MEDS: CLOPIDOGREL 75 MG TABLET PO SCH (10:36)
[2021-08-08] MEDS: METOPROLOL SUCCINATE XL 25 MG TABLET PO SCH (10:37)
[2021-08-08] MEDS: SERTRALINE 100 MG TABLET PO SCH (10:39)
[2021-08-08] MEDS: AMANTADINE 100 MG CAPSULE PO SCH (10:45)
[2021-08-08] MEDS: POTASSIUM CHLORIDE 10 MEQ TABLET PO SCH ×2 (10:45→21:31)
[2021-08-08] MEDS: PANTOPRAZOLE 40 MG TABLET PO SCH (10:45)
[2021-08-08] MEDS: ASPIRIN CHEW 81 MG TABLET PO SCH (21:31)
[2021-08-08] MEDS: ROSUVASTATIN 20 MG TABLET PO SCH (21:32)
[2021-08-08] MEDS: MORPHINE 4 MG/1 ML VIAL IV PRN (21:32)
[2021-08-08] MEDS: ENOXAPARIN 30 MG/0.3 ML SYRINGE SUBCUT SCH (21:32)
[2021-08-09 05:26] LABS: Basophils % 0.7 % (0.0-0.8); Eosinophils # 0.1 10*3/uL (0.0-0.87); Eosinophils % 1.9 % (0.00-10.9); Hematocrit 38.6 VOL% (35.7-47.0); Hemoglobin 11.9 GM/DL (12.0-16.0); Immature Granulocytes % 0.9 %; Immature Granulocytes Absolute 0.05 #; Lymphocytes # 1.4 10*3/uL (1.4-4.0); Lymphocytes % 25.3 % (21.3-54.2); Mean Corpuscular HGB Conc 30.8 GM/DL (32-36); Mean Platelet Volume 10.1 FL (9.6-12.0); Monocytes % 9.8 % (1.7-12.7); Neutrophils % 61.4 % (38.7-73.9); Platelet Count 138 T/CUMM (130-400); Red Blood Count 4.54 MC/CUMM (3.8-5.5); Red Cell Distribution Width 15.6 % (9.3-17.3); White Blood Count 5.7 T/CUMM (4-12)
[2021-08-09 05:49] LABS: Calcium 9.5 MG/DL (8.5-10.1); Osmolality,Calculated 281.5 MOS/KG (273-304); Potassium 4.7 MMOL/L (3.5-5.1)
[2021-08-09] MEDS: POTASSIUM CHLORIDE 10 MEQ TABLET PO SCH (09:09)
[2021-08-09] MEDS: GABAPENTIN 300 MG CAPSULE PO SCH (09:09)
[2021-08-09] MEDS: RANOLAZINE 500 MG TABLET PO SCH (09:09)
[2021-08-09] MEDS: metFORMIN 500 MG TABLET PO SCH (09:09)
[2021-08-09] MEDS: CARBIDOPA/LEVODOPA 25-100 MG TABLET PO SCH ×4 (09:09→17:26)
[2021-08-09] MEDS: AMANTADINE 100 MG CAPSULE PO SCH (09:10)
[2021-08-09] MEDS: gemfibroziL 600 MG TABLET PO SCH ×2 (09:10→17:26)
[2021-08-09] MEDS: PANTOPRAZOLE 40 MG TABLET PO SCH (09:10)
[2021-08-09] MEDS: CLOPIDOGREL 75 MG TABLET PO SCH (09:10)
[2021-08-09] MEDS: MULTIVITAMIN (CENTRUM) TABLET PO SCH (09:10)
[2021-08-09] MEDS: SERTRALINE 100 MG TABLET PO SCH (09:10)
[2021-08-09] MEDS: FUROSEMIDE 20 MG TABLET PO SCH (09:11)
[2021-08-09] MEDS: PRAMIPEXOLE 0.25 MG TABLET PO SCH ×2 (09:11→14:53)
[2021-08-09] MEDS: glipiZIDE 5 MG TABLET PO SCH ×2 (09:11→17:26)
[2021-08-09] MEDS: ISOSORBIDE MONONITRATE 60 MG TABLET PO SCH (09:11)
[2021-08-09] MEDS: SPIRONOLACTONE 25 MG TABLET PO SCH (09:12)
[2021-08-09] MEDS: METOPROLOL SUCCINATE XL 25 MG TABLET PO SCH (09:12)
[2021-08-09] MEDS: LIDOCAINE 5% PATCH TRANSDERM SCH (09:18)
[2021-08-09] MEDS: INSULIN REGULAR 100 UNIT/ML SUBCUT SCH ×3 (09:52→18:00)
[2021-08-09 18:25] VITALS: BP 132/69
== END 2021-08-09 18:25 | disposition swing bed (61) ==
LOC: N.ED 14:49 → N.EDINP 14:49 → SUATTDRO 19:19 → N.5E 08-02 00:28 → SUATTDRO 08-03 14:38
PROVIDERS: ADMIT Internal Medicine; ATTEND Internal Medicine Geriatric Medicine

== ENCOUNTER 2021-10-18 11:41 | Observation (INO) ==
[2021-10-18 12:32] LABS: Basophils % 0.2 % (0.0-0.8); Eosinophils % 0.9 % (0.00-10.9); Hematocrit 37.1 VOL% (35.7-47.0); Hemoglobin 11.3 GM/DL (12.0-16.0); Immature Granulocytes % 0.5 %; Immature Granulocytes Absolute 0.02 #; Lymphocytes # 0.8 10*3/uL (1.4-4.0); Lymphocytes % 19.1 % (21.3-54.2); Mean Corpuscular HGB Conc 30.5 GM/DL (32-36); Mean Corpuscular Volume 81.2 FL (87-102); Mean Platelet Volume 11.7 FL (9.6-12.0); Monocytes # 0.4 10*3/uL (0.11-0.8); Monocytes % 8.5 % (1.7-12.7); Neutrophils % 70.8 % (38.7-73.9); Platelet Count 149 T/CUMM (130-400); Red Blood Count 4.57 MC/CUMM (3.8-5.5); White Blood Count 4.3 T/CUMM (4-12)
[2021-10-18 12:44] LABS: Albumin 3.8 G/DL (3.4-5.0); Bilirubin,Total 0.8 MG/DL (0.20-1.00); Calcium 9.4 MG/DL (8.5-10.1); Osmolality,Calculated 276.8 MOS/KG (273-304); Potassium 3.2 MMOL/L (3.5-5.1); Total Protein 7.2 G/DL (6.4-8.2)
[2021-10-18] MEDS ORDERED: MORPHINE 2 MG/1 ML SYRINGE IV STA (15:02)
[2021-10-18] MEDS ORDERED: ONDANSETRON 4 MG/2 ML VIAL ONE (15:07)
[2021-10-18] MEDS ORDERED: POTASSIUM CHLORIDE 20 MEQ TABLET PO STA (16:17)
[2021-10-18] MEDS ORDERED: ONDANSETRON 4 MG/2 ML VIAL IV PRN (16:40)
[2021-10-18] MEDS ORDERED: hydrALAZINE 20 MG/1 ML VIAL IV PRN (16:40)
[2021-10-18] MEDS ORDERED: DOCUSATE SODIUM 100 MG CAPSULE PO PRN (16:40)
[2021-10-18] MEDS ORDERED: GLUCAGON 1 MG VIAL IM PRN (16:40)
[2021-10-18] MEDS ORDERED: DEXTROSE 10% 250 ML BAG IV PRN (16:49)
[2021-10-18] MEDS ORDERED: ENOXAPARIN 40 MG/0.4 ML SYRINGE SUBCUT SCH (17:00)
[2021-10-18] MEDS: INSULIN REGULAR 100 UNIT/ML SUBCUT SCH (21:55)
[2021-10-18] MEDS: MORPHINE 2 MG/1 ML SYRINGE IV PRN (21:55)
[2021-10-19] MEDS: MORPHINE 2 MG/1 ML SYRINGE IV PRN ×2 (04:07→14:52)
[2021-10-19 05:28] LABS: Calcium 8.7 MG/DL (8.5-10.1); Osmolality,Calculated 283.3 MOS/KG (273-304); Potassium 3.6 MMOL/L (3.5-5.1)
[2021-10-19 05:59] LABS: Basophils % 0.3 % (0.0-0.8); Eosinophils # 0.1 10*3/uL (0.0-0.87); Eosinophils % 2.4 % (0.00-10.9); Immature Granulocytes % 0.5 %; Immature Granulocytes Absolute 0.02 #; Lymphocytes # 0.9 10*3/uL (1.4-4.0); Lymphocytes % 24.4 % (21.3-54.2); Mean Corpuscular HGB Conc 29.7 GM/DL (32-36); Mean Corpuscular Volume 83.5 FL (87-102); Mean Platelet Volume 11.7 FL (9.6-12.0); Monocytes # 0.5 10*3/uL (0.11-0.8); Monocytes % 13.3 % (1.7-12.7); Neutrophils % 59.1 % (38.7-73.9); Red Blood Count 3.95 MC/CUMM (3.8-5.5); Red Cell Distribution Width 16.2 % (9.3-17.3); White Blood Count 3.7 T/CUMM (4-12)
[2021-10-19 06:01] LABS: Hemoglobin 9.8 GM/DL (12.0-16.0); Platelet Count 114 T/CUMM (130-400)
[2021-10-19] MEDS ORDERED: PANTOPRAZOLE 40 MG TABLET PO SCH (06:30)
[2021-10-19] MEDS ORDERED: NITROGLYCERIN SL 0.4 MG TABLET SL PRN (06:50)
[2021-10-19] MEDS ORDERED: KETOROLAC 30 MG/1 ML VIAL IV ONE (08:39)
[2021-10-19] MEDS ORDERED: FERROUS SULFATE 325 MG TABLET PO SCH (09:00)
[2021-10-19] MEDS ORDERED: CLOPIDOGREL 75 MG TABLET PO SCH (09:00)
[2021-10-19] MEDS ORDERED: LOSARTAN 50 MG TABLET PO SCH (09:00)
[2021-10-19] MEDS: INSULIN REGULAR 100 UNIT/ML SUBCUT SCH ×2 (09:33→12:27)
[2021-10-19 11:29] VITALS: BP 168/86
[2021-10-19] MEDS ORDERED: ASPIRIN CHEW 81 MG TABLET PO SCH (21:00)
[2021-10-19] MEDS ORDERED: ROSUVASTATIN 20 MG TABLET PO SCH (21:00)
== END 2021-10-19 16:30 ==
LOC: SUATTDRO → N.ED 11:41 → N.TELEN 11:41
PROVIDERS: ADMIT Family Medicine; ATTEND Family Medicine

== ENCOUNTER 2022-01-03 16:41 | Inpatient (IN) ==
[2022-01-03] MEDS ORDERED: ASPIRIN 325 MG TABLET PO STA (17:34)
[2022-01-03] MEDS ORDERED: hydrALAZINE 20 MG/1 ML VIAL IV STA (17:36)
[2022-01-03 17:57] LABS: Albumin 4.5 G/DL (3.4-5.0); Calcium 9.3 MG/DL (8.5-10.1); Osmolality,Calculated 280.8 MOS/KG (273-304); Potassium 3.8 MMOL/L (3.5-5.1); Total Protein 8.2 G/DL (6.4-8.2)
[2022-01-03 18:13] LABS: Basophils % 0.2 % (0.0-0.8); Eosinophils # 0.1 10*3/uL (0.0-0.87); Eosinophils % 1.3 % (0.00-10.9); Hematocrit 42.9 VOL% (35.7-47.0); Hemoglobin 13.9 GM/DL (12.0-16.0); Immature Granulocytes % 0.4 %; Immature Granulocytes Absolute 0.02 #; Lymphocytes # 1.5 10*3/uL (1.4-4.0); Lymphocytes % 31.7 % (21.3-54.2); Mean Corpuscular HGB Conc 32.4 GM/DL (32-36); Mean Corpuscular Volume 81.7 FL (87-102); Monocytes # 0.4 10*3/uL (0.11-0.8); Monocytes % 8.5 % (1.7-12.7); Neutrophils % 57.9 % (38.7-73.9); Platelet Count 107 T/CUMM (130-400); Red Blood Count 5.25 MC/CUMM (3.8-5.5); Red Cell Distribution Width 14.1 % (9.3-17.3); White Blood Count 4.7 T/CUMM (4-12)
[2022-01-03] MEDS ORDERED: KETOROLAC 30 MG/1 ML VIAL IV STA (19:59)
[2022-01-03] MEDS ORDERED: GLUCAGON 1 MG VIAL IM PRN (22:16)
[2022-01-03] MEDS ORDERED: hydrALAZINE 20 MG/1 ML VIAL IV PRN (22:23)
[2022-01-03] MEDS ORDERED: NITROGLYCERIN SL 0.4 MG TABLET SL PRN (22:32)
[2022-01-03] MEDS ORDERED: DEXTROSE 10% 250 ML BAG IV PRN (22:39)
[2022-01-03] MEDS ORDERED: LACTATED RINGERS 1,000 ML IV SCH (23:00)
[2022-01-04] MEDS: ONDANSETRON 4 MG/2 ML VIAL IV PRN ×3 (00:12→18:07)
[2022-01-04] MEDS: MORPHINE 2 MG/1 ML SYRINGE IV PRN ×4 (00:56→18:04)
[2022-01-04 05:23] LABS: Basophils % 0.5 % (0.0-0.8); Eosinophils # 0.1 10*3/uL (0.0-0.87); Eosinophils % 2.4 % (0.00-10.9); Hematocrit 37.6 VOL% (35.7-47.0); Hemoglobin 11.9 GM/DL (12.0-16.0); Immature Granulocytes % 0.5 %; Immature Granulocytes Absolute 0.02 #; Lymphocytes # 1.6 10*3/uL (1.4-4.0); Lymphocytes % 37.2 % (21.3-54.2); Mean Corpuscular HGB Conc 31.6 GM/DL (32-36); Mean Corpuscular Volume 82.5 FL (87-102); Mean Platelet Volume 10.8 FL (9.6-12.0); Monocytes # 0.5 10*3/uL (0.11-0.8); Monocytes % 12.2 % (1.7-12.7); Neutrophils % 47.2 % (38.7-73.9); Platelet Count 112 T/CUMM (130-400); Red Blood Count 4.56 MC/CUMM (3.8-5.5); Red Cell Distribution Width 14.2 % (9.3-17.3); White Blood Count 4.2 T/CUMM (4-12)
[2022-01-04 05:47] LABS: Platelet Estimate Adequate
[2022-01-04 05:48] LABS: Anisocytosis 1+
[2022-01-04 05:50] LABS: Albumin 3.5 G/DL (3.4-5.0); Bilirubin,Total 0.7 MG/DL (0.20-1.00); Calcium 9.3 MG/DL (8.5-10.1); Osmolality,Calculated 274.8 MOS/KG (273-304); Potassium 3.8 MMOL/L (3.5-5.1); Risk Ratio 4.47; Thyroid Stimulating Hormone 2.31 uIU/ml (0.358-3.74); Total Protein 6.5 G/DL (6.4-8.2); VLDL Cholesterol 52.2 MG/DL
[2022-01-04] MEDS: ENOXAPARIN 40 MG/0.4 ML SYRINGE SUBCUT SCH ×2 (07:26→09:15)
[2022-01-04] MEDS: INSULIN LISPRO 100 UNIT/ML SUBCUT SCH ×4 (08:20→21:00)
[2022-01-04] MEDS: SERTRALINE 50 MG TABLET PO SCH (09:15)
[2022-01-04] MEDS: RANOLAZINE 500 MG TABLET PO SCH ×2 (09:15→20:58)
[2022-01-04] MEDS: CARBIDOPA/LEVODOPA 25-100 MG TABLET PO SCH ×4 (09:15→20:59)
[2022-01-04] MEDS: FUROSEMIDE 20 MG TABLET PO SCH (09:15)
[2022-01-04] MEDS: PANTOPRAZOLE 40 MG TABLET PO SCH (09:15)
[2022-01-04] MEDS: CLOPIDOGREL 75 MG TABLET PO SCH (09:15)
[2022-01-04] MEDS: NITROGLYCERIN 2% OINT 1 INCH/GM PACK TOP SCH ×3 (10:59→21:01)
[2022-01-04] MEDS ORDERED: KETOROLAC 30 MG/1 ML VIAL IV ONE (12:11)
[2022-01-04] MEDS: traMADol 50 MG TABLET PO SCH (20:59)
[2022-01-04] MEDS: ROSUVASTATIN 20 MG TABLET PO SCH (20:59)
[2022-01-05] MEDS: MORPHINE 2 MG/1 ML SYRINGE IV PRN ×2 (01:32→11:40)
[2022-01-05] MEDS: NITROGLYCERIN 2% OINT 1 INCH/GM PACK TOP SCH ×4 (04:24→22:58)
[2022-01-05] MEDS: KETOROLAC 15 MG/1 ML VIAL IV PRN ×3 (06:55→23:03)
[2022-01-05] MEDS: SERTRALINE 50 MG TABLET PO SCH (09:43)
[2022-01-05] MEDS: RANOLAZINE 500 MG TABLET PO SCH ×2 (09:43→20:22)
[2022-01-05] MEDS: CLOPIDOGREL 75 MG TABLET PO SCH (09:43)
[2022-01-05] MEDS: FUROSEMIDE 20 MG TABLET PO SCH (09:43)
[2022-01-05] MEDS: LOSARTAN 50 MG TABLET PO SCH (09:43)
[2022-01-05] MEDS: CARBIDOPA/LEVODOPA 25-100 MG TABLET PO SCH ×4 (09:43→20:21)
[2022-01-05] MEDS: PANTOPRAZOLE 40 MG TABLET PO SCH (09:44)
[2022-01-05] MEDS: INSULIN LISPRO 100 UNIT/ML SUBCUT SCH ×4 (09:44→20:22)
[2022-01-05] MEDS: ENOXAPARIN 40 MG/0.4 ML SYRINGE SUBCUT SCH (09:44)
[2022-01-05] MEDS: ONDANSETRON 4 MG/2 ML VIAL IV PRN ×2 (10:38→17:53)
[2022-01-05] MEDS: ROSUVASTATIN 20 MG TABLET PO SCH (20:21)
[2022-01-05] MEDS: traMADol 50 MG TABLET PO SCH (20:21)
[2022-01-06] MEDS: ONDANSETRON 4 MG/2 ML VIAL IV PRN ×4 (02:54→21:11)
[2022-01-06] MEDS: ACETAMINOPHEN 325 MG TABLET PO PRN (02:55)
[2022-01-06] MEDS: NITROGLYCERIN 2% OINT 1 INCH/GM PACK TOP SCH ×4 (04:50→21:13)
[2022-01-06] MEDS: KETOROLAC 15 MG/1 ML VIAL IV PRN ×3 (04:59→22:07)
[2022-01-06] MEDS: CLOPIDOGREL 75 MG TABLET PO SCH (10:08)
[2022-01-06] MEDS: PANTOPRAZOLE 40 MG TABLET PO SCH (10:08)
[2022-01-06] MEDS: INSULIN LISPRO 100 UNIT/ML SUBCUT SCH ×4 (10:08→21:12)
[2022-01-06] MEDS: LOSARTAN 50 MG TABLET PO SCH (10:08)
[2022-01-06] MEDS: RANOLAZINE 500 MG TABLET PO SCH ×2 (10:08→21:12)
[2022-01-06] MEDS: CARBIDOPA/LEVODOPA 25-100 MG TABLET PO SCH ×4 (10:09→21:11)
[2022-01-06] MEDS: FUROSEMIDE 20 MG TABLET PO SCH (10:09)
[2022-01-06] MEDS: ENOXAPARIN 40 MG/0.4 ML SYRINGE SUBCUT SCH (10:09)
[2022-01-06] MEDS: SERTRALINE 50 MG TABLET PO SCH (10:09)
[2022-01-06] MEDS: ROSUVASTATIN 20 MG TABLET PO SCH (21:12)
[2022-01-06] MEDS: traMADol 50 MG TABLET PO SCH (21:12)
[2022-01-07] MEDS: ACETAMINOPHEN 325 MG TABLET PO PRN (01:48)
[2022-01-07] MEDS: KETOROLAC 15 MG/1 ML VIAL IV PRN (03:29)
[2022-01-07] MEDS: NITROGLYCERIN 2% OINT 1 INCH/GM PACK TOP SCH ×2 (03:32→10:48)
[2022-01-07 05:21] LABS: Basophils % 0.2 % (0.0-0.8); Eosinophils # 0.1 10*3/uL (0.0-0.87); Eosinophils % 1.3 % (0.00-10.9); Hematocrit 34.9 VOL% (35.7-47.0); Hemoglobin 11.3 GM/DL (12.0-16.0); Immature Granulocytes % 0.7 %; Immature Granulocytes Absolute 0.03 #; Lymphocytes # 1.3 10*3/uL (1.4-4.0); Lymphocytes % 28.8 % (21.3-54.2); Mean Corpuscular HGB Conc 32.4 GM/DL (32-36); Mean Corpuscular Volume 81.4 FL (87-102); Mean Platelet Volume 10.6 FL (9.6-12.0); Monocytes # 0.5 10*3/uL (0.11-0.8); Monocytes % 10.3 % (1.7-12.7); Neutrophils % 58.7 % (38.7-73.9); Platelet Count 107 T/CUMM (130-400); Red Blood Count 4.29 MC/CUMM (3.8-5.5); Red Cell Distribution Width 13.7 % (9.3-17.3); White Blood Count 4.6 T/CUMM (4-12)
[2022-01-07 05:35] LABS: Calcium 9.6 MG/DL (8.5-10.1); Osmolality,Calculated 279.7 MOS/KG (273-304)
[2022-01-07] MEDS: ONDANSETRON 4 MG/2 ML VIAL IV PRN (08:11)
[2022-01-07] MEDS: INSULIN LISPRO 100 UNIT/ML SUBCUT SCH ×2 (08:12→12:03)
[2022-01-07] MEDS: ENOXAPARIN 40 MG/0.4 ML SYRINGE SUBCUT SCH (08:13)
[2022-01-07] MEDS: RANOLAZINE 500 MG TABLET PO SCH (08:14)
[2022-01-07] MEDS: CLOPIDOGREL 75 MG TABLET PO SCH (08:14)
[2022-01-07] MEDS: SERTRALINE 50 MG TABLET PO SCH (08:14)
[2022-01-07] MEDS: CARBIDOPA/LEVODOPA 25-100 MG TABLET PO SCH (08:14)
[2022-01-07] MEDS: PANTOPRAZOLE 40 MG TABLET PO SCH (08:14)
[2022-01-07] MEDS: FUROSEMIDE 20 MG TABLET PO SCH (08:15)
[2022-01-07] MEDS: LOSARTAN 50 MG TABLET PO SCH (08:15)
[2022-01-07 08:43] VITALS: BP 170/80
[2022-01-07] MEDS ORDERED: TUBERCULIN SKIN TEST 0.1 ML SYRINGE INTRADERM ONE (11:00)
== END 2022-01-07 12:38 | disposition home health service (06) | DRG 313 ==
LOC: N.EDINP 16:41 → N.ED 16:41 → SUATTDRO 22:16 → N.TELEN 23:17 → SUATTDRO 01-06 09:09
PROVIDERS: ADMIT Emergency Medicine; ATTEND Internal Medicine Geriatric Medicine

== ENCOUNTER 2022-01-17 13:08 | Inpatient (IN) ==
[2022-01-17 15:22] LABS: Basophils % 0.2 % (0.0-0.8); Eosinophils # 0.1 10*3/uL (0.0-0.87); Eosinophils % 1.3 % (0.00-10.9); Hemoglobin 11.7 GM/DL (12.0-16.0); Immature Granulocytes % 0.7 %; Immature Granulocytes Absolute 0.04 #; Lymphocytes # 1.4 10*3/uL (1.4-4.0); Lymphocytes % 23.9 % (21.3-54.2); Mean Corpuscular HGB Conc 32.5 GM/DL (32-36); Mean Corpuscular Volume 81.1 FL (87-102); Mean Platelet Volume 11.2 FL (9.6-12.0); Monocytes # 0.6 10*3/uL (0.11-0.8); Monocytes % 9.9 % (1.7-12.7); Platelet Count 99 T/CUMM (130-400); Red Blood Count 4.44 MC/CUMM (3.8-5.5); White Blood Count 5.9 T/CUMM (4-12)
[2022-01-17] MEDS ORDERED: ONDANSETRON 4 MG/2 ML VIAL IV ONE (15:32)
[2022-01-17] MEDS ORDERED: MORPHINE 2 MG/1 ML SYRINGE IV STA (15:32)
[2022-01-17] MEDS ORDERED: MORPHINE 2 MG/1 ML SYRINGE ONE (15:33)
[2022-01-17] MEDS ORDERED: ONDANSETRON 4 MG/2 ML VIAL ONE (15:33)
[2022-01-17 15:36] LABS: Albumin 3.6 G/DL (3.4-5.0); Bilirubin,Total 0.7 MG/DL (0.20-1.00); Calcium 8.6 MG/DL (8.5-10.1); Osmolality,Calculated 275.7 MOS/KG (273-304); Potassium 3.8 MMOL/L (3.5-5.1); Total Protein 6.8 G/DL (6.4-8.2)
[2022-01-17 15:45] LABS: Platelet Estimate Decreased
[2022-01-17] MEDS ORDERED: ALUMINUM/MAGNES/SIMETH MAX STR 30 ML UDCUP PO PRN (16:42)
[2022-01-17] MEDS ORDERED: DOCUSATE SODIUM 100 MG CAPSULE PO PRN (16:42)
[2022-01-17] MEDS ORDERED: LACTULOSE 20 GM/30 ML UDCUP PO PRN (16:42)
[2022-01-17] MEDS ORDERED: SIMETHICONE CHEW 125 MG TABLET PO PRN (16:42)
[2022-01-17] MEDS ORDERED: GLUCAGON 1 MG VIAL IM PRN (16:42)
[2022-01-17] MEDS ORDERED: DEXTROSE 10% 250 ML BAG IV PRN (16:50)
[2022-01-17] MEDS ORDERED: hydrALAZINE 20 MG/1 ML VIAL IV PRN (17:04)
[2022-01-17] MEDS: ACETAMINOPHEN 325 MG TABLET PO PRN (18:14)
[2022-01-17] MEDS ORDERED: REMDESIVIR 200 MG in SODIUM CHLORIDE 0.9% 210 ML IV ONE (18:52)
[2022-01-17] MEDS ORDERED: REMDESIVIR 100 MG in SODIUM CHLORIDE 0.9% 100 ML IV SCH (19:00)
[2022-01-17] MEDS: ENOXAPARIN 40 MG/0.4 ML SYRINGE SUBCUT SCH (22:17)
[2022-01-17] MEDS: ASCORBIC ACID 500 MG TABLET PO SCH (22:18)
[2022-01-17] MEDS: ROSUVASTATIN 20 MG TABLET PO SCH (22:18)
[2022-01-17] MEDS: traMADol 50 MG TABLET PO PRN (22:18)
[2022-01-17] MEDS: GABAPENTIN 100 MG CAPSULE PO SCH (22:18)
[2022-01-17] MEDS: RANOLAZINE 500 MG TABLET PO SCH (22:18)
[2022-01-17] MEDS: MELATONIN 3 MG TABLET PO PRN (22:23)
[2022-01-17] MEDS: traZODone 50 MG TABLET PO PRN (22:23)
[2022-01-18] MEDS: CARBIDOPA/LEVODOPA 25-100 MG TABLET PO SCH ×5 (01:33→21:02)
[2022-01-18] MEDS: ACETAMINOPHEN 325 MG TABLET PO PRN ×2 (03:45→11:20)
[2022-01-18] MEDS: guaiFENesin/DM ER 600-30 MG TABLET PO PRN ×2 (03:47→21:00)
[2022-01-18 05:55] LABS: Basophils % 0.2 % (0.0-0.8); Eosinophils # 0.1 10*3/uL (0.0-0.87); Eosinophils % 2.5 % (0.00-10.9); Hemoglobin 11.3 GM/DL (12.0-16.0); Immature Granulocytes % 0.5 %; Immature Granulocytes Absolute 0.02 #; Lymphocytes # 1.3 10*3/uL (1.4-4.0); Mean Corpuscular HGB Conc 31.4 GM/DL (32-36); Mean Corpuscular Volume 85.3 FL (87-102); Mean Platelet Volume 11.9 FL (9.6-12.0); Monocytes # 0.4 10*3/uL (0.11-0.8); Monocytes % 9.3 % (1.7-12.7); Neutrophils % 56.5 % (38.7-73.9); Platelet Count 83 T/CUMM (130-400); Red Blood Count 4.22 MC/CUMM (3.8-5.5); Red Cell Distribution Width 14.1 % (9.3-17.3); White Blood Count 4.1 T/CUMM (4-12)
[2022-01-18 06:17] LABS: Calcium 8.8 MG/DL (8.5-10.1); Osmolality,Calculated 277.7 MOS/KG (273-304)
[2022-01-18 06:21] LABS: INR 0.9; PT Patient Result 10.3 SECS (10.1-12.1)
[2022-01-18 06:51] LABS: Ferritin 41.9 ng/mL (8-252)
[2022-01-18 07:13] LABS: Platelet Estimate Decreased
[2022-01-18 07:56] LABS: Urine Appearance Clear (Clear); Urine Color Dark Yellow (Yellow)
[2022-01-18 07:57] LABS: Glucose,Urine (UA) Negative (Negative); Ketones,Urine Negative (Negative); Nitrite,Urine Negative (Negative); Protein,Urine Trace mg/dL (Negative); Urine Specific Gravity >= 1.030 (1.001-1.035)
[2022-01-18 07:58] LABS: Bilirubin,Urine Negative (Negative); Blood, Urine Negative (Negative); Urine Urobilinogen 0.2 eU/dL (<2.0)
[2022-01-18 07:59] LABS: Mucus,Urine Occasional /LPF (Occasional); RBC,Urine 1 /HPF (0-4); Squamous Epithelial Cell,Urine Occasional /HPF (0-10)
[2022-01-18] MEDS ORDERED: FUROSEMIDE 20 MG TABLET PO SCH (09:00)
[2022-01-18] MEDS: CETIRIZINE 10 MG TABLET PO SCH (09:19)
[2022-01-18] MEDS: CLOPIDOGREL 75 MG TABLET PO SCH (09:19)
[2022-01-18] MEDS: LOSARTAN 50 MG TABLET PO SCH (09:19)
[2022-01-18] MEDS: SERTRALINE 50 MG TABLET PO SCH (09:19)
[2022-01-18] MEDS: ZINC GLUCONATE 50 MG TABLET PO SCH (09:19)
[2022-01-18] MEDS: RANOLAZINE 500 MG TABLET PO SCH ×2 (09:19→21:01)
[2022-01-18] MEDS: PANTOPRAZOLE 40 MG TABLET PO SCH (09:20)
[2022-01-18] MEDS: ASCORBIC ACID 500 MG TABLET PO SCH ×2 (09:20→21:01)
[2022-01-18] MEDS: CHOLECALCIFEROL 1,000 UNIT TABLET PO SCH (09:20)
[2022-01-18] MEDS: ONDANSETRON 4 MG/2 ML VIAL IV PRN (12:46)
[2022-01-18] MEDS: SODIUM CHLORIDE 0.9% 1,000 ML IV SCH (12:46)
[2022-01-18] MEDS: GABAPENTIN 100 MG CAPSULE PO SCH (21:00)
[2022-01-18] MEDS: traZODone 50 MG TABLET PO PRN (21:01)
[2022-01-18] MEDS: MELATONIN 3 MG TABLET PO PRN (21:02)
[2022-01-18] MEDS: ROSUVASTATIN 20 MG TABLET PO SCH (21:03)
[2022-01-18] MEDS: ENOXAPARIN 40 MG/0.4 ML SYRINGE SUBCUT SCH (21:04)
[2022-01-18] MEDS: traMADol 50 MG TABLET PO PRN (21:07)
[2022-01-19] MEDS ORDERED: ALBUTEROL 0.63 MG/3 ML NEB RESP TX PRN (00:58)
[2022-01-19] MEDS: BENZONATATE 100 MG CAPSULE PO PRN ×2 (01:24→21:01)
[2022-01-19] MEDS ORDERED: KETOROLAC 15 MG/1 ML VIAL IV ONE (01:30)
[2022-01-19] MEDS: SODIUM CHLORIDE 0.9% 1,000 ML IV SCH (04:34)
[2022-01-19] MEDS ORDERED: IBUPROFEN 400 MG TABLET PO PRN (09:18)
[2022-01-19] MEDS: SERTRALINE 50 MG TABLET PO SCH (10:01)
[2022-01-19] MEDS: LOSARTAN 50 MG TABLET PO SCH (10:01)
[2022-01-19] MEDS: RANOLAZINE 500 MG TABLET PO SCH ×2 (10:01→21:01)
[2022-01-19] MEDS: ZINC GLUCONATE 50 MG TABLET PO SCH (10:01)
[2022-01-19] MEDS: CARBIDOPA/LEVODOPA 25-100 MG TABLET PO SCH ×5 (10:02→21:02)
[2022-01-19] MEDS: PANTOPRAZOLE 40 MG TABLET PO SCH (10:03)
[2022-01-19] MEDS: CLOPIDOGREL 75 MG TABLET PO SCH (10:03)
[2022-01-19] MEDS: ASCORBIC ACID 500 MG TABLET PO SCH ×2 (10:03→21:01)
[2022-01-19] MEDS: CETIRIZINE 10 MG TABLET PO SCH (10:03)
[2022-01-19] MEDS: CHOLECALCIFEROL 1,000 UNIT TABLET PO SCH (10:03)
[2022-01-19] MEDS: DEXAMETHASONE 4 MG/1 ML VIAL IV SCH (10:04)
[2022-01-19] MEDS: ONDANSETRON 4 MG/2 ML VIAL IV PRN (12:55)
[2022-01-19] MEDS: ENOXAPARIN 40 MG/0.4 ML SYRINGE SUBCUT SCH (21:00)
[2022-01-19] MEDS: GABAPENTIN 100 MG CAPSULE PO SCH (21:01)
[2022-01-19] MEDS: ROSUVASTATIN 20 MG TABLET PO SCH (21:01)
[2022-01-19] MEDS: guaiFENesin/DM ER 600-30 MG TABLET PO PRN (21:01)
[2022-01-19] MEDS: traZODone 50 MG TABLET PO PRN (21:01)
[2022-01-19] MEDS: MELATONIN 3 MG TABLET PO PRN (21:01)
[2022-01-19] MEDS: traMADol 50 MG TABLET PO PRN (21:02)
[2022-01-20] MEDS: ACETAMINOPHEN 325 MG TABLET PO PRN (00:02)
[2022-01-20 05:12] LABS: Basophils % 0.2 % (0.0-0.8); Eosinophils % 0.2 % (0.00-10.9); Hematocrit 33.6 VOL% (35.7-47.0); Immature Granulocytes % 0.8 %; Immature Granulocytes Absolute 0.04 #; Lymphocytes % 19.6 % (21.3-54.2); Mean Corpuscular HGB Conc 32.7 GM/DL (32-36); Mean Corpuscular Volume 80.4 FL (87-102); Mean Platelet Volume 12.2 FL (9.6-12.0); Monocytes # 0.3 10*3/uL (0.11-0.8); Monocytes % 6.7 % (1.7-12.7); Neutrophils % 72.5 % (38.7-73.9); Platelet Count 100 T/CUMM (130-400); Red Blood Count 4.18 MC/CUMM (3.8-5.5); Red Cell Distribution Width 13.3 % (9.3-17.3)
[2022-01-20 05:27] LABS: Calcium 9.2 MG/DL (8.5-10.1); Osmolality,Calculated 282.7 MOS/KG (273-304)
[2022-01-20] MEDS: SERTRALINE 50 MG TABLET PO SCH (09:23)
[2022-01-20] MEDS: RANOLAZINE 500 MG TABLET PO SCH ×2 (09:23→22:02)
[2022-01-20] MEDS: LOSARTAN 50 MG TABLET PO SCH (09:23)
[2022-01-20] MEDS: CHOLECALCIFEROL 1,000 UNIT TABLET PO SCH (09:23)
[2022-01-20] MEDS: CARBIDOPA/LEVODOPA 25-100 MG TABLET PO SCH ×4 (09:23→22:02)
[2022-01-20] MEDS: ASCORBIC ACID 500 MG TABLET PO SCH ×2 (09:24→22:02)
[2022-01-20] MEDS: ZINC GLUCONATE 50 MG TABLET PO SCH (09:24)
[2022-01-20] MEDS: DEXAMETHASONE 4 MG/1 ML VIAL IV SCH (09:24)
[2022-01-20] MEDS: CLOPIDOGREL 75 MG TABLET PO SCH (09:24)
[2022-01-20] MEDS: PANTOPRAZOLE 40 MG TABLET PO SCH (09:24)
[2022-01-20] MEDS: CETIRIZINE 10 MG TABLET PO SCH (09:24)
[2022-01-20] MEDS ORDERED: HydrOXYzine PAMOATE 25 MG CAPSULE PO ONE (20:43)
[2022-01-20] MEDS: traZODone 50 MG TABLET PO PRN (21:45)
[2022-01-20] MEDS: ROSUVASTATIN 20 MG TABLET PO SCH (22:02)
[2022-01-20] MEDS: GABAPENTIN 100 MG CAPSULE PO SCH (22:03)
[2022-01-20] MEDS: ENOXAPARIN 40 MG/0.4 ML SYRINGE SUBCUT SCH (22:03)
[2022-01-21] MEDS: LOSARTAN 50 MG TABLET PO SCH (09:46)
[2022-01-21] MEDS: ZINC GLUCONATE 50 MG TABLET PO SCH (09:46)
[2022-01-21] MEDS: CLOPIDOGREL 75 MG TABLET PO SCH (09:46)
[2022-01-21] MEDS: CARBIDOPA/LEVODOPA 25-100 MG TABLET PO SCH ×4 (09:47→20:36)
[2022-01-21] MEDS: PANTOPRAZOLE 40 MG TABLET PO SCH (09:47)
[2022-01-21] MEDS: RANOLAZINE 500 MG TABLET PO SCH ×2 (09:47→20:36)
[2022-01-21] MEDS: CHOLECALCIFEROL 1,000 UNIT TABLET PO SCH (09:47)
[2022-01-21] MEDS: SERTRALINE 50 MG TABLET PO SCH (09:47)
[2022-01-21] MEDS: ASCORBIC ACID 500 MG TABLET PO SCH ×2 (09:48→20:36)
[2022-01-21] MEDS: CETIRIZINE 10 MG TABLET PO SCH (09:48)
[2022-01-21] MEDS: DEXAMETHASONE 4 MG/1 ML VIAL IV SCH (09:48)
[2022-01-21] MEDS: FLUTICASONE 50 MCG NASAL SPRAY 16 GM BOTTLE BOTH NARES SCH ×2 (15:10→21:53)
[2022-01-21] MEDS: INSULIN REGULAR 100 UNIT/ML SUBCUT SCH ×2 (16:45→21:53)
[2022-01-21] MEDS: MELATONIN 3 MG TABLET PO PRN (20:36)
[2022-01-21] MEDS: GABAPENTIN 100 MG CAPSULE PO SCH (20:36)
[2022-01-21] MEDS: ROSUVASTATIN 20 MG TABLET PO SCH (20:36)
[2022-01-21] MEDS: traZODone 50 MG TABLET PO PRN (20:37)
[2022-01-21] MEDS: ENOXAPARIN 40 MG/0.4 ML SYRINGE SUBCUT SCH (21:54)
[2022-01-22] MEDS: guaiFENesin/DM ER 600-30 MG TABLET PO PRN (02:31)
[2022-01-22] MEDS: BENZONATATE 100 MG CAPSULE PO PRN (02:31)
[2022-01-22] MEDS ORDERED: NITROGLYCERIN SL 0.4 MG TABLET SL PRN (08:49)
[2022-01-22] MEDS: INSULIN REGULAR 100 UNIT/ML SUBCUT SCH (09:30)
[2022-01-22] MEDS: LOSARTAN 50 MG TABLET PO SCH (09:30)
[2022-01-22] MEDS: FLUTICASONE 50 MCG NASAL SPRAY 16 GM BOTTLE BOTH NARES SCH (09:30)
[2022-01-22] MEDS: CLOPIDOGREL 75 MG TABLET PO SCH (09:30)
[2022-01-22] MEDS: PANTOPRAZOLE 40 MG TABLET PO SCH (09:30)
[2022-01-22] MEDS: DEXAMETHASONE 4 MG/1 ML VIAL IV SCH (09:30)
[2022-01-22] MEDS: ZINC GLUCONATE 50 MG TABLET PO SCH (09:31)
[2022-01-22] MEDS: SERTRALINE 50 MG TABLET PO SCH (09:31)
[2022-01-22] MEDS: RANOLAZINE 500 MG TABLET PO SCH (09:31)
[2022-01-22] MEDS: CHOLECALCIFEROL 1,000 UNIT TABLET PO SCH (09:31)
[2022-01-22] MEDS: CETIRIZINE 10 MG TABLET PO SCH (09:31)
[2022-01-22] MEDS: ASCORBIC ACID 500 MG TABLET PO SCH (09:31)
[2022-01-22] MEDS: CARBIDOPA/LEVODOPA 25-100 MG TABLET PO SCH ×2 (09:31→13:40)
[2022-01-22 12:25] VITALS: BP 177/77
== END 2022-01-22 15:20 | disposition home health service (06) | DRG 178 ==
LOC: N.ED 13:08 → N.EDINP 13:08 → SUATTDRO 16:42 → N.3E 20:40
PROVIDERS: ADMIT Phlebology; ATTEND Internal Medicine